=== PATIENT | male | born 1965 | race Hispanic/Latino ===

== ENCOUNTER 2024-05-20 10:38 | Inpatient (IN) | payer MEDICAID, SELFPAY ==
[2024-05-20] VITALS (43 sets, daily range): BP systolic 89–153; BP diastolic 60–92; BMI 21.3
--- NOTE | 2024-05-20 08:07 | ED.GENMED ---
History of Present Illness
General
Chief Complaint: Blood Sugar Problem
Time Seen by Provider: 05/20/24 08:07
History of Present Illness
History of Present Illness:
HPI: Patient came in by ambulance 'from a residence'. He has not had his insulin in the last 2 months as he has 'government insurance and changed jobs'. Generally feels unwell and is a very limited historian at this time. EMS indicated that their
blood sugar read 'high'.
EXAM:
GENERAL: The patient is ill-appearing and appears somewhat upon the time
HEENT: Dry oral mucosa
CARDIOVASCULAR: No murmurs, borderline tachycardic heart rate, regular rhythm, No chest wall tenderness
PULMONARY: No significant respiratory distress but he is mildly, breath sounds are clear and equal
ABDOMEN: Soft with no peritoneal signs, no tenderness
NEUROLOGIC: Fair strength all extremities, no coordination deficits
PSYCHIATRIC: The patient knows he is at a hospital but has trouble naming the year
EXTREMITIES: Nontender, no edema, moves all extremities equally
SKIN: No rash, no lesions
TIME OF INITIAL ENCOUNTER: 8:05 AM
NUMBER AND COMPLEXITY OF PROBLEMS ADDRESSED AT THE ENCOUNTER
� Chronic conditions affecting care: High blood pressure, hyperlipidemia, IDDM, history of substance abuse
� Acute Exacerbation and/or Progression of Chronic Illness: This is an acute problem
� Differential Diagnosis includes: DKA, electrolyte abnormality, dehydration, VIRI
AMOUNT AND/OR COMPLEXITY OF DATA TO BE REVIEWED AND ANALYZED
� I performed an independent evaluation of and my interpretation is:
EKG: Sinus 96, baseline artifact, QTc prolonged [address]:
X-rays: Chest x-ray shows no clear sign of pneumonia
Laboratory Studies: VBG shows a pH of 7.08, pCO2 of 23, bicarb of 6.8, white count 20.4, glucose 749, potassium 4.0, bicarb less than 5, beta hydroxybutyric 11.9, no evidence of UTI
Other:
� Review of other/old records: I reviewed records from this past August and at that time he was admitted with hyperglycemia, had A1c was 12.8, VIRI, but was not in DKA at that time.
� Clinical information was obtained by an independent historian: EMS
� Prescriptions/Medications Considered but not given:
� Further testing considered but not performed:
RISK OF COMPLICATIONS AND/OR MORBIDITY OR MORTALITY OF PATIENT MANAGEMENT
� Social determinants of health affecting care: Lives at home, has not been taking his insulin over the past 2 months as he switched jobs and has 'government insurance'
� Discussion with other providers: Hospitalist, Dr. Johnson at 9:55 AM for admission; I spoke to the lab who indicates the potassium is 4.0. I also spoke to Dr. Lyons.
� Escalation of care including admission/observation vs risk of discharge considered: VBG confirms metabolic acidosis�the patient was given IV fluid. Multiple lab draws were sent as several potassiums have been hemolyzed. I
spoke to the lab who indicates that the potassium was 4.0 and I then ordered insulin drip. I also placed coud� catheter as RN was unable to place catheter�bladder scan 600+ mL urine.
Past History
Past History
ED Past Medical History: HTN, Hypercholesterolemia and IDDM
Social History
Tobacco: Smoker
Alcohol: None
Drug: Cocaine, Narcotics and IVDA
Personal: Single
Employment: Employed
Family History
Family History: CAD
Phy Exam
Physical Exam
Physical Exam:
See HPI
Course
Orders/Labs/Results
Orders:
Orders
05/20/24 08:06
Electrocardiogram (*1) Urgent
Reason for Study: Other
Other Reason for Exam: hyperglycemia
EKG- Treatment ONCE
05/20/24 08:11
Complete Blood Count/With Diff Urgent
Lactic Acid Urgent
Venous Blood Gas Urgent
%Oxygen/Room Air: RA
05/20/24 08:18
0.9% Sodium Chloride 1000 ml [Nss] 1,000 ml IV BOLUS
05/20/24 08:32
0.9% Sodium Chloride 1000 ml [Nss] 1,000 ml IV BOLUS
CR Chest Portable - 1 View Urgent
Comment:
Reason For Exam: dka, leukocytosis
Reason Study Needs to be Portable: Patient Unstable
05/20/24 08:52
Lidocaine 2% [Lidocaine Uro-Jet 2%] 1 syringe .ROUTE .STK-MED ONE
05/20/24 08:54
Basic Metabolic Panel Urgent
05/20/24 09:06
Urinalysis Reflex To Culture Urgent
Date Specimen was Collected: 05/20/24
Time Specimen was Collected: 09:05
Urine Microscopic Reflex Cult Urgent
05/20/24 09:27
B-Hydroxybutyrate Urgent
Comprehensive Metabolic Panel Urgent
Magnesium Urgent
Phosphorus Urgent
05/20/24 Lunch
NPO
Allow oral meds: Yes
Allow clear liquids: Sips of Clears
NPO with Ice Chips: Yes
Reg Insulin 100 Units/100 ml [Novolin R Insulin Infusion] 100 units in 100 ml IV ORDERED RATE
05/20/24 10:24
BMP [Basic Metabolic Panel] Urgent
05/20/24 10:26
Admit/Transfer Patient As Directed
Co-Sign Provider:
Level of Care: Inpatient admission
Assign to:: ICU
Physician / Group: Hospitalist
Diagnosis: DKA
Reason for Hospitalization: .
Expected length of stay greater than two midnights?: Yes
ELOS- Estimated Length of Stay in days: 3
I certify the patient meets the requirements for IP care: Yes
Code Status As Directed
Resuscitation Status: Full Code
05/20/24 12:11
Lactic Acid Urgent
Abnormal Lab Results
05/20/24 05/20/24 05/20/24
08:10 08:11 08:54
WBC 20.4 H 10^3/uL
(4.8-10.8)
MPV 11.2 H fL
(7.4-10.4)
Abs Immat Gran (auto) 0.4 H 10^3/uL
(0-0.05)
Absolute Neuts (auto) 16.9 H 10^3/uL
(1.4-6.5)
Absolute Lymphs (auto) 0.9 L 10^3/uL
(1.2-3.4)
Absolute Monos (auto) 2.1 H 10^3/uL
(0.1-0.6)
Immature Gran % 1.9 H %
(0-0.5)
Neutrophils % 83.0 H %
(42.2-75.2)
Lymphocytes % 4.5 L %
(20.5-51.1)
Monocytes % 10.3 H %
(1.7-9.3)
VBG pH 7.08 L*
(7.32-7.43)
VBG pCO2 23 L mmHg
(35-48)
VBG HCO3 6.8 L mmol/L
(22-27)
Sodium 130 L mmol/L
(135-145)
Chloride 93 L mmol/L
(98-107)
Carbon Dioxide < 5 L* mmol/L
(22-30)
BUN 51 H mg/dl
(9-20)
Creatinine 1.6 H mg/dL
(0.7-1.3)
Glucose 749 H* mg/dl
(70-99)
Lactic Acid 2.5 H mmol/L
(0.7-2.0)
Calcium 8.1 L mg/dl
(8.4-10.2)
Phosphorus
AST
Alkaline Phosphatase
Urine Ketones
Ur Occult Blood Reflex
Urine RBC
Urine Bacteria (Reflex)
Urine Glucose
B-Hydroxybutyrate
POC Glucose > 600 H* mg/dl
(70-99)
05/20/24 05/20/24
09:06 09:27
WBC
MPV
Abs Immat Gran (auto)
Absolute Neuts (auto)
Absolute Lymphs (auto)
Absolute Monos (auto)
Immature Gran %
Neutrophils %
Lymphocytes %
Monocytes %
VBG pH
VBG pCO2
VBG HCO3
Sodium 133 L mmol/L
(135-145)
Chloride 96 L mmol/L
(98-107)
Carbon Dioxide < 5 L* mmol/L
(22-30)
BUN 47 H mg/dl
(9-20)
Creatinine 1.7 H mg/dL
(0.7-1.3)
Glucose 694 H* mg/dl
(70-99)
Lactic Acid
Calcium
Phosphorus 5.8 H mg/dl
(2.5-4.5)
AST 15 L U/L
(17-59)
Alkaline Phosphatase 147 H U/L
(38-126)
Urine Ketones 3+ A
(Negative)
Ur Occult Blood Reflex Trace A
(Negative)
Urine RBC 3-6 A /HPF
(0-2)
Urine Bacteria (Reflex) Few A
(Negative)
Urine Glucose 3+ A
(Negative)
B-Hydroxybutyrate 11.9 H mmol/L
(0.02-0.27)
POC Glucose
05/20/24 08:11
05/20/24 10:25
Vital Signs
Initial and Last Documented VS:
Initial Vital Signs
Pulse Resp Pulse Ox
96 20 100
05/20/24 08:08 05/20/24 08:08 05/20/24 08:08
Last Documented Vital Signs
Temp Pulse Resp BP Pulse Ox
97.3 F 100 24 133/78 100
05/20/24 09:41 05/20/24 09:00 05/20/24 09:00 05/20/24 09:00 05/20/24 08:41
Procedures
Urinary Catheter
Procedure completed by: Md, Dr. Wilson
Type of urinary catheter: indwelling catheter (Coude)
Catheter size (moroccan): 16
Urine description: clear
*Critical Care Note
Total Time (30-74mins, 75-104mins- exclusive of procedures): 55 minutes
comment:
The patient arrives with evidence of DKA. He is acidotic with initial sugar critical high, he was given IV fluids emergently and started on insulin. He is also noted to be hypothermic.
ED Attending Note
-
Portions of this chart may have been created with voice recognition software.� Occasional wrong word or��sound alike� substitutions may have occurred due to the inherent limitations of voice recognition software.
Discharge Plan
Departure
Patient Disposition: Admit
Date of Disposition: 05/20/24
Time of Disposition: 09:54
Presentation/result/management discussed w/ accepting MD/DO: Hospitalist
Discharge Problem:
DKA (diabetic ketoacidosis)
Interventions
Interventions:
*ED COVID-19 Vaccine History Last Done: 05/20/24 08:45
ED- Neurological Assessment Last Done: 05/20/24 08:18
[2024-05-20 08:11] LABS: Glucose - Point of Care > 600 mg/dl (70-99)
[2024-05-20] MEDS: NSS 1000 IV ×2 (08:20→08:34)
[2024-05-20 08:21] LABS: Venous Blood Gas B.E. -21.5 mmol/L (-4 to +4); Venous Blood Gas HCO3 6.8 mmol/L (22-27); Venous Blood Gas O2 Sat % 77.2 %; Venous Blood Gas pCO2 23 mmHg (35-48); Venous Blood Gas pO2 49 mmHg (30-50)
[2024-05-20 08:24] LABS: Venous Blood Gas O2 Therapy RA
[2024-05-20 08:25] LABS: Venous Blood Gas pH 7.08 (7.32-7.43)
[2024-05-20 08:26] LABS: % Basophils 0.3 % (0-2); % Immature Granulocytes 1.9 % (0-0.5); % Lymphocytes 4.5 % (20.5-51.1); % Monocytes 10.3 % (1.7-9.3); Absolute Basophils 0.1 10^3/uL (0-0.2); Absolute Immature Granulocytes 0.4 10^3/uL (0-0.05); Absolute Lymphocytes 0.9 10^3/uL (1.2-3.4); Absolute Monocytes 2.1 10^3/uL (0.1-0.6); Absolute Neutrophils 16.9 10^3/uL (1.4-6.5); Hemoglobin 16.6 g/dL (13.0-18.0); Mean Corp Hgb Conc. 36.1 g/dL (33.0-37.0); Mean Platelet Volume 11.2 fL (7.4-10.4); Nucleated Red Blood Cells % 0 % (-); Platelet Count 313 10^3/uL (130-400); Red Blood Cell Count 5.35 10^6/uL (4.70-6.10); Red Cell Dist. Width 11.9 % (11.5-14.5); White Blood Cell Count 20.4 10^3/uL (4.8-10.8)
[2024-05-20 08:39] LABS: Lactic Acid 2.5 mmol/L (0.7-2.0)
--- NOTE | 2024-05-20 08:40 | PHANOTE ---
med rec latanya(05/20/24)-Met with patient, but he was unable to communicate his medications. Used old pharmacy and old physician records to compile list, matching patient's claim he has not taken medication in months. Could not find last fill of
lisinopril or lantus in pharmacy, used record of physician visit from 2022.
[2024-05-20 09:46] LABS: Urine Albumin Trace (Neg - Trace); Urine Bilirubin Negative (Negative); Urine Character Clear (Clear); Urine Color Yellow; Urine Glucose 3+ (Negative); Urine Ketone 3+ (Negative); Urine Leukocyte Negative (Negative); Urine Nitrite Negative (Negative); Urine Occult Blood Trace (Negative); Urine Urobilinogen Negative (Neg - 1+)
[2024-05-20 09:48] LABS: Carbon Dioxide < 5 mmol/L (22-30); Glucose 749 mg/dl (70-99)
[2024-05-20 09:49] LABS: Blood Urea Nitrogen 51 mg/dl (9-20); Calcium 8.1 mg/dl (8.4-10.2); Chloride 93 mmol/L (98-107); Sodium 130 mmol/L (135-145); eGFR 49.63
[2024-05-20] MEDS: NOVOLIN R INSULIN INFUSION 100 IV (10:00)
[2024-05-20 10:04] LABS: ALT (SGPT) 14 U/L (0-50); AST (SGOT) 15 U/L (17-59); Albumin 4.2 g/dl (3.5-5.0); Alkaline Phosphatase 147 U/L (38-126); Blood Urea Nitrogen 47 mg/dl (9-20); Calcium 8.4 mg/dl (8.4-10.2); Carbon Dioxide < 5 mmol/L (22-30); Chloride 96 mmol/L (98-107); Glucose 694 mg/dl (70-99); Magnesium 1.8 mg/dl (1.6-2.3); Phosphorus 5.8 mg/dl (2.5-4.5); Sodium 133 mmol/L (135-145); Total Bilirubin 0.6 mg/dl (0.2-1.3); Total Protein 6.5 g/dl (6.3-8.2); eGFR 46.15
--- NOTE | 2024-05-20 10:25 | HPS.HSE ---
Family Physician
-
Family Physician: INTERVIEWE UNKNOWN - PT NOT
Chief Complaint
-
Weakness, unresponsiveness, lethargy
History of Present Illness
58 years old male who was brought in by ambulance from his residence after experiencing severe weakness and, like presentation. Apparently, patient was pale and mottled upon arrival. His blood sugar was 700 and had metabolic acidosis. Patient
stopped taking insulin due to job loss. Patient did not monitor his blood sugars at home.
History taken from the ER doctor as patient still lethargic and unable to provide detailed history although he answered simple questions.
In the ER, he was found to have multiple organ failure secondary to diabetic ketoacidosis WBC 20. Sodium 130, potassium 4.0, creatinine 1.6, lactic acid 2.5.
Medical History
Past Medical History
Past Medical History: Reports IDDM and Other ( History of noncompliance)
Past Surgical History: Reports Other (No recent major surgery)
Social History
Tobacco: Non-smoker
Alcohol: None
Drug: None
Personal: Single
Living: With Family
Employment: Not Employed
Family History
Family History: Not pertinent
Allergies / Home Medications
Allergies reflects when Allergies were last updated in [facility].
Home Medications with original date entered in [facility]
Allergy/Medication List:
Allergies
Allergy/AdvReac Type Severity Reaction Status Date / Time
No Known Allergies Allergy Verified 08/14/23 09:51
Home Medications
gabapentin 100 mg capsule 100 mg PO TID 30 days #90 caps 08/16/23
insulin lispro 100 unit/mL subcutaneous pen (Humalog KwikPen (U-100) Insulin) 12 unit (0.12 mL) SC AC #5 ea 08/16/23
lisinopril 20 mg tablet 20 mg PO DAILY 30 days #30 tabs 08/16/23
Review of Systems
-
Unable to obtain full review of systems at this time due to: Patient Non-verbal (Patient is lethargic, unreliable review of systems)
Physical Exam
Vital Signs
Vital Signs
Temp Pulse Resp BP Pulse Ox
97.3 F 100 24 133/78 100
05/20/24 09:41 05/20/24 09:00 05/20/24 09:00 05/20/24 09:00 05/20/24 08:41
Physical Exam
General: Appears in Distress (Acutely ill looking )
HEENT: Other (dry MM )
Respiratory: Clear
Cardiac: S1/S2 and Tachycardia
GI: Soft, Non Tender and Non Distended
Genito-urinary: Clear Urine and Keane
Musculoskeletal: No Cyanosis and No Edema
Skin: No Jaundice
Neuro: Awake and Other (Sluggish and lethargic , answered smpel questions, followed commands. )
Psych: Confused; No Agitated
Laboratory Results
-
05/20/24 08:11
Laboratory Results
Lactic Acid 2.5 mmol/L (0.7-2.0) H 05/20/24 08:11
Total Bilirubin 0.6 mg/dl (0.2-1.3) 05/20/24 09:27
AST 15 U/L (17-59) L 05/20/24 09:27
ALT 14 U/L (0-50) 05/20/24 09:27
Alkaline Phosphatase 147 U/L (38-126) H 05/20/24 09:27
Impression/Plan
-
58 years old male presented with diabetic ketoacidosis and change in mental status
# Diabetic ketoacidosis due to noncompliance to medication, insulin
Admit the patient to ICU
Start the patient on intravenous fluid, generous volume
Input output chart
Start the patient on insulin drip and Accu-Chek every hour. Follow DKA.
Monitor potassium level closely and start potassium infusion when level less than 4 while on insulin
Continue to monitor mental status
Continue monitoring basic metabolic panel
Will discuss with ICU doctor
# Leukocytosis, likely reactive. No fever. No hypoxia
# Hyponatremia, likely pseudohyponatremia due to hyperglycemia
# Acute kidney injury secondary to diabetic ketoacidosis
Acute urinary retention
Keep Keane and maintain it for now
Renal ultrasound
Urinalysis but expect improvement with hydration
Avoid nephrotoxic
# History of primary hypertension. Holding lisinopril while VIRI.
Add as needed hydralazine
# Sinus tachycardia, reactive
# Toxic metabolic encephalopathy due to diabetic ketoacidosis
Patient seems to show some improvement in the ER while treating his acute illness
# Hypothermia, reactive, body temperature is improving
# DVT and GI prophylaxis
Total critical time spent to see the patient, examine the patient, review data and lab results, and discuss the treatment plan with patient, ER doctor, and nurse around 85 minutes
[2024-05-20 10:26] LABS: B-Hydroxybutyrate 11.9 mmol/L (0.02-0.27)
[2024-05-20 10:42] LABS: Urine Bacteria Few (Negative); Urine White Cell None Seen /HPF (0-5)
[2024-05-20 11:02] LABS: Glucose - Point of Care > 600 mg/dl (70-99)
[2024-05-20 11:06] LABS: Blood Urea Nitrogen 45 mg/dl (9-20); Calcium 8.7 mg/dl (8.4-10.2); Carbon Dioxide < 5 mmol/L (22-30); Chloride 97 mmol/L (98-107); Glucose 627 mg/dl (70-99); Potassium 3.9 mmol/L (3.5-5.1); Sodium 134 mmol/L (135-145); eGFR 49.63
--- NOTE | 2024-05-20 11:09 | EDRN ---
Dr DIAZ notified of critical value chemistries
[2024-05-20 11:30] LABS: Glucose 558 mg/dl (70-99)
--- NOTE | 2024-05-20 12:00 | PTCARENOTE ---
Received from ER into rm [id number]. Max assisted from stretcher to bed. Lethargic/awakens to verbal stimuli; oriented to self/place; required reorientation to place. ST on monitor. SpO2 99% on RA. +BS, c/o int nausea-- medicated w prn- see JAN. NPO
status maintained. Keane catheter placed in ER for acute retention; draining clear, yellow, urine. Skin cold to touch, poor cap refill. L AC w IVF and insulin gtt infusing- see flow sheet. Blood work drawn and sent to lab. Pt instructed on how
to report care concerns. Call kylee w in reach and bed alarm active.
[2024-05-20] MEDS: NSS (PRESERVATIVE FREE) 10 ML IV (12:05)
[2024-05-20] MEDS: PROTONIX IV 40 MG IV (12:05)
[2024-05-20] MEDS: ZOFRAN 4 MG IV (12:05)
[2024-05-20 12:22] LABS: INR 1.22; PT 15.2 Sec (11.4-14.6)
[2024-05-20 12:23] LABS: APTT 24.5 Sec (23.4-35.0)
[2024-05-20 12:28] LABS: Lactic Acid 1.5 mmol/L (0.7-2.0)
[2024-05-20 12:40] LABS: Glucose - Point of Care > 600 mg/dl (70-99)
[2024-05-20 12:56] LABS: Glucose 400 mg/dl (70-99)
--- NOTE | 2024-05-20 13:07 | CON.INTV ---
Consultation
Consultation Request
Date/Time Consultation Requested: 05/20/24
Date/Time Consultation Performed: 05/20/24
Performing Provider: Eddie
Reason for Consultation: Critical Care
Medical History
-
History of Present Illness:
Patient is a 58-year-old male with previous history of diabetes, poorly controlled, hypertension brought in by ambulance from his residence after experience of your weakness and pallor. Blood sugar was over 700 on arrival, with severe high anion
gap metabolic acidosis. He admits that he stopped taking his insulin due to recent job loss. He does not monitor his blood sugars accurately at home. In ER, he was noted to have diabetic ketoacidosis with blood sugar greater than 500, bicarb less
than 5, pH 7.08, lactic acidosis 2.5. He is admitted to ICU for insulin drip.
He has had prior admissions in the past for poorly controlled insulin. He is notably noncompliant.
Past Medical History
Past Medical History: Other (see list below)
Social History
Tobacco: Non-smoker
Alcohol: None
Drug: Former User
Family History
Family History: Reviewed & Not Pertinent
Allergies / Home Medications
Allergies
Allergy/AdvReac Type Severity Reaction Status Date / Time
No Known Allergies Allergy Verified 08/14/23 09:51
Home Medications
�Medication �Instructions �Recorded �Confirmed �Last Taken �Type
gabapentin 100 mg capsule 100 mg PO TID 30 days #90 caps 08/16/23 Unknown Rx
insulin lispro 100 unit/mL 12 unit (0.12 mL) SC AC #5 ea 08/16/23 Unknown Rx
subcutaneous pen (Humalog KwikPen
(U-100) Insulin)
lisinopril 20 mg tablet 20 mg PO DAILY 30 days #30 tabs 08/16/23 08/14/23 Unknown Rx
Review of Systems
-
History Source: Patient
All other systems: Negative unless noted
Vitals / Labs / Diagnostic Testing
Vital Signs
Temp Pulse Resp BP Pulse Ox
97.6 F 112 20 150/88 99
05/20/24 11:50 05/20/24 11:00 05/20/24 11:00 05/20/24 11:00 05/20/24 12:45
Lab Data
05/20/24 08:11
Laboratory Results
05/20/24
11:47
PT 15.2 H
INR 1.22
APTT 24.5
Diagnostic Testing:
Physical Exam
-
HEENT: Normocephalic, Anicteric and Moist Mucous Membranes
Cardiovascular: S1/S2 and Regular Rhythm (tachy)
Respiratory: Clear and Non-Labored Respirations
GI: Soft, Non Distended and Non Tender
Neurology: Awake, Alert, Oriented, AO x 3, No Motor Deficits and Tremors
Skin: Warm, Dry and Good Color
General: Other (NAD) and Other (agitated)
Assessment
-
Patient is a 58-year-old male with previous history of diabetes, poorly controlled, hypertension brought in by ambulance from his residence after experience of your weakness and pallor. Blood sugar was over 700 on arrival, with severe high anion
gap metabolic acidosis. He admits that he stopped taking his insulin due to recent job loss. He does not monitor his blood sugars accurately at home. In ER, he was noted to have diabetic ketoacidosis with blood sugar greater than 500, bicarb less
than 5, pH 7.08, lactic acidosis 2.5. He is admitted to ICU for insulin drip.
DKA, on insulin gtt
Generalized weakness
Leukocytosis
VIRI, creat peak 1.7 (BL 0.6)
Noncompliance
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
HTN
Hyperlipidemia
Insulin-dependent diabetes w/ neuropathy
Substance abuse, UDS + meth/amphet
Cocaine/heroine/meth history, incarceration
Lumbar back pain
Plan
DKA, admitting BS elevated, AG >30
Started on insulin drip, can wean today following protocol, start D5 IVFs
Consult diabetic nurse for insulin recommendations
Prior admissions noted for poorly controlled DM
Can restart diet once able to bridge
H/o poorly controlled diabetes, hopeful transition to home meds
HbA1c 12.8 (08/14/23)
Admits triggers include noncompliance
UDS in past + meth/amphet
Has a history of cocaine/heroine use
Repeat UDS
NPO for now
Diet transition following DKA protocol
GI ppx if indicated
Hemodynamically stable, not requiring pressors.
No prior h/o cardiac disease
No ECHO in past for review
Oxygen needs: Stable on RA
No prior h/o pulmonary disease
CXR showing NAD
Creat at baseline, follow UO
Acid/base status: AGMA 2/2 DKA, follow until AG <12
No signs/symptoms suspicious for infectious etiology at this time.
Will observe off antibiotics for now.
Follow fever trend, WBC count.
DVT ppx SCDs
Diagnostic Data
Chest X-Ray: 05/20/24- No active cardiopulmonary disease.
2019- No evidence of active cardiopulmonary disease.
CT Scan:
Echo:
PFT's:
Reports and relevant images were personally reviewed.
-----
Critical care time 50 mins -- this includes review of history, physical exam, medications, hemodynamic/ventilator parameters, laboratory data, imaging and discussion with house staff, pharmacy, respiratory therapy, cement despatch operator, and nursing.
[2024-05-20 14:16] LABS: Glucose - Point of Care 428 mg/dl (70-99)
[2024-05-20 14:32] LABS: Glucose 307 mg/dl (70-99); Potassium 3.3 mmol/L (3.5-5.1)
[2024-05-20] MEDS: NSS with KCL 20 MEQ 1000 IV (14:37)
[2024-05-20 14:48] LABS: Blood Urea Nitrogen 44 mg/dl (9-20); Calcium 8.9 mg/dl (8.4-10.2); Carbon Dioxide 12 mmol/L (22-30); Chloride 106 mmol/L (98-107); Estimated Creatinine Clearance 76 ml/min; Potassium 3.3 mmol/L (3.5-5.1); Sodium 140 mmol/L (135-145); eGFR > 60.00
--- NOTE | 2024-05-20 15:21 | W.PN.UPDATE ---
Update Note
Progress Note Update
Addendum
I reviewed BMP
Will add an additional K rider with infusion since K is 3.3
c/w Insulin gtt
Creatinine is normalizing now
Add dextrose gtt when BS approaching 250 to c/w low dose insulin until acidosis resolves
d/w nurse and pharmacist
End
[2024-05-20] MEDS: KCL 270 MEQ IV (15:32)
[2024-05-20 15:42] LABS: Glucose - Point of Care 382 mg/dl (70-99)
--- NOTE | 2024-05-20 16:01 | PTCARENOTE ---
14[address] BMP results reviewed by Dr. Morgan and Dr. Lyons. Further orders received for K+ rider- see MAR. Plan to maintain on insulin gtt/IVF- see MAR/flow sheet; Q4H BMP draws per orders. Pt.'s mother to bedside this afternoon, updated on plan of
care, questions answered. Bed alarm remains active.
[2024-05-20 16:39] LABS: Glucose - Point of Care 254 mg/dl (70-99)
[2024-05-20 16:50] LABS: Amphetamines Negative (Negative); Barbiturates Negative (Negative); Benzodiazepines Negative (Negative); Buprenorphine Negative (Negative); Cocaine Negative (Negative); Marijuana Negative (Negative); Methadone Negative (Negative); Methamphetamines Negative (Negative); Opiates Negative (Negative); Phencyclidine Negative (Negative); Tricyclic Antidepressants Negative (Negative)
[2024-05-20 17:42] LABS: Glucose - Point of Care 203 mg/dl (70-99)
[2024-05-20] MEDS: D5/0.45%NSS with KCL 20 MEQ 1000 IV (17:51)
[2024-05-20 18:44] LABS: Glucose - Point of Care 209 mg/dl (70-99)
[2024-05-20] MEDS: HEPARIN 5000 UNITS SC (19:24)
[2024-05-20 19:40] LABS: Glucose - Point of Care 211 mg/dl (70-99)
--- NOTE | 2024-05-20 20:13 | PTCARENOTE ---
Rec'd care of patient at 1900. Patient drowsy but arousable. VSS. ST with rate in the 100-110's. No edema. Palpable pulses. Lung sounds diminished. Pulse ox 98% on RA. +BS. Reminded on NPO orders. Voiding via caceres catheter. Insulin gtt and IVFs
infusing as ordered through peripheral INT. DKA protocol followed. 1999 BMP drawn and sent.
[2024-05-20 20:46] LABS: Blood Urea Nitrogen 39 mg/dl (9-20); Carbon Dioxide 17 mmol/L (22-30); Chloride 112 mmol/L (98-107); Estimated Creatinine Clearance 97 ml/min; Glucose 186 mg/dl (70-99); Potassium 3.9 mmol/L (3.5-5.1); Sodium 142 mmol/L (135-145); eGFR > 60.00
[2024-05-20 20:48] LABS: Glucose - Point of Care 231 mg/dl (70-99)
[2024-05-20 21:49] LABS: Glucose - Point of Care 253 mg/dl (70-99)
[2024-05-20 22:47] LABS: Glucose - Point of Care 231 mg/dl (70-99)
--- NOTE | 2024-05-20 22:53 | PTCARENOTE ---
Patient setting off bed alarm. When staff entered room, patient trying to climb out of bed. Yelling at staff 'I NEED ICE.' Stating if we are not going to get it for him, he will go to the sink and get it himself. Patient educated on fall risk,
medications and diet order. IV access and caceres catheter being pulled on while patient continuing to try and get out of bed. Patient screaming at staff that he 'does not care about any of that' and 'just get me ice'. Patient placed back in bed by
RNs. While placing blanket back on, patient screaming 'YOU'RE WASTING TIME JUST GO GET ME THE ICE.' Patient notified that staff will not tolerate this behavior. Bed alarm placed back on and functioning. Ice chips provided.
[2024-05-20 23:50] LABS: Glucose - Point of Care 201 mg/dl (70-99)
[2024-05-21] VITALS (15 sets, daily range): BP systolic 114–149; BP diastolic 62–95; BMI 21.8
[2024-05-21] MEDS: D5/0.45%NSS with KCL 20 MEQ 1000 IV ×2 (00:32→07:22)
[2024-05-21 00:42] LABS: Glucose - Point of Care 198 mg/dl (70-99)
[2024-05-21 01:01] LABS: Blood Urea Nitrogen 32 mg/dl (9-20); Calcium 8.9 mg/dl (8.4-10.2); Carbon Dioxide 22 mmol/L (22-30); Chloride 113 mmol/L (98-107); Estimated Creatinine Clearance 97 ml/min; Glucose 208 mg/dl (70-99); Potassium 3.8 mmol/L (3.5-5.1); Sodium 143 mmol/L (135-145); eGFR > 60.00
[2024-05-21] MEDS: D5/0.45%NSS with KCL 20 MEQ IV (01:14)
[2024-05-21 01:52] LABS: Glucose - Point of Care 240 mg/dl (70-99)
[2024-05-21 02:36] LABS: Glucose - Point of Care 247 mg/dl (70-99)
[2024-05-21 03:41] LABS: Glucose - Point of Care 268 mg/dl (70-99)
[2024-05-21 04:42] LABS: Hematocrit 36.9 % (39.0-52.0); Hemoglobin 13.6 g/dL (13.0-18.0); Mean Corp Hgb Conc. 36.9 g/dL (33.0-37.0); Mean Corpuscular Hgb 30.3 pg (27.0-31.0); Mean Corpuscular Volume 82.2 fL (80.0-94.0); Mean Platelet Volume 10.4 fL (7.4-10.4); Platelet Count 245 10^3/uL (130-400); Red Blood Cell Count 4.49 10^6/uL (4.70-6.10); Red Cell Dist. Width 12.2 % (11.5-14.5); White Blood Cell Count 12.4 10^3/uL (4.8-10.8)
[2024-05-21 04:45] LABS: Glucose - Point of Care 223 mg/dl (70-99)
[2024-05-21 04:54] LABS: Glucose - Point of Care 221 mg/dl (70-99)
[2024-05-21 04:56] LABS: Blood Urea Nitrogen 28 mg/dl (9-20); Calcium 8.8 mg/dl (8.4-10.2); Carbon Dioxide 21 mmol/L (22-30); Chloride 113 mmol/L (98-107); Estimated Creatinine Clearance 116 ml/min; Glucose 223 mg/dl (70-99); Potassium 3.6 mmol/L (3.5-5.1); Sodium 142 mmol/L (135-145); eGFR > 60.00
--- NOTE | 2024-05-21 05:02 | PTCARENOTE ---
DKA protocol maintained. Patient resting comfortably. VSS.
[2024-05-21 05:43] LABS: Glucose - Point of Care 214 mg/dl (70-99)
--- NOTE | 2024-05-21 06:41 | W.PN.HOSP.TC ---
Today's Communication/Plan
-
Start SQ insulin
Reglan pre-meals
Introduce diet slowly
Out of ICU
Assessment / Plan
Assessment / Plan
Physical Exam
General: Not in distress, looks comfortable
HEENT: Other (dry MM )
Respiratory: Clear
Cardiac: S1/S2 and Tachycardia
GI: Soft, Non Tender and Non Distended
Genito-urinary: Clear Urine and Keane
Musculoskeletal: No Cyanosis and No Edema
Skin: No Jaundice
Neuro: Awake, oriented X3, followed commands
Psych: Calm, No Agitated
58 years old male presented with diabetic ketoacidosis and change in mental status
# Diabetic ketoacidosis due to noncompliance to medication, insulin
Resolving, s/p DKA protocol and insulin gtt
with good improvement, will switch to SQ insulin, elvis-meals, ISS and Lantus
# Abdominal discomfort due to N/V at home for few days
non tender abdomen, introduce diet slowly. Reglan pre-meals for one day.
# Leukocytosis, likely reactive. No fever. No hypoxia
WBC is coming down
# Hyponatremia, was pseudohyponatremia due to hyperglycemia
# Acute kidney injury secondary to diabetic ketoacidosis, resolved with IVF
#Acute urinary retention
will do voiding trial
# Hypokalemia, resolved.
# History of primary hypertension. Resume lisinopril
Add as needed hydralazine
# Sinus tachycardia, reactive
# Toxic metabolic encephalopathy due to diabetic ketoacidosis , resolving, he seems to improve
Non focal neuro exam
# Hypothermia, reactive, resolved.
# DVT and GI prophylaxis
Total time spent to see the patient, examine the patient, review data and lab results, and discuss the treatment plan with patient, and nurse around 55 minutes
Anticipated Discharge: Within 24 hours
Subjective/Interval History
-
Date of Service: May 21, 2024
He is feeling better
more alert
wants to drink and have soup, reports mild abd discomfort
mild nausea at times
Objective Data
-
Labs:
Laboratory Results
05/20/24 05/21/24 05/21/24
20:08 00:30 04:33
WBC 12.4 H
Hgb 13.6
Hct 36.9 L
Plt Count 245 D
Sodium 142 143 142
Potassium 3.9 3.8 3.6
Chloride 112 H 113 H 113 H
Carbon Dioxide 17 L 22 21 L
BUN 39 H 32 H 28 H
Creatinine 0.7 0.7 0.6 L
Glucose 186 H 208 H 223 H
Calcium 9.0 8.9 8.8
05/21/24
08:00
WBC
Hgb
Hct
Plt Count
Sodium Cancelled
Potassium Cancelled
Chloride Cancelled
Carbon Dioxide Cancelled
BUN Cancelled
Creatinine Cancelled
Glucose Cancelled
Calcium Cancelled
Vital Signs:
Vital Signs
Temp Pulse Resp BP Pulse Ox
98.1 F 98 17 149/95 96
05/21/24 03:12 05/21/24 06:00 05/21/24 06:00 05/21/24 06:00 05/21/24 06:00
I&O
05/19/24 05/20/24 05/21/24
06:59 06:59 06:59
Intake Total 5533.0 / 5533.0
Output Total 3550 / 3550
Balance 1983.0 / 1983.0
[2024-05-21 06:43] LABS: Glucose - Point of Care 248 mg/dl (70-99)
[2024-05-21] MEDS: NOVOLIN R INSULIN INFUSION 100 IV (06:45)
--- NOTE | 2024-05-21 07:15 | W.PN.INTV ---
Today's Communication / Plan
Recommendations
Doing well, transitioned off insulin gtt
Tolerating diet, continue further diabetic management per team
PT, OT, encouraged OOB
Transferred to floors, we will sign off at this time
Assessment
-
Patient is a 58-year-old male with previous history of diabetes, poorly controlled, hypertension brought in by ambulance from his residence after experience of your weakness and pallor. Blood sugar was over 700 on arrival, with severe high anion
gap metabolic acidosis. He admits that he stopped taking his insulin due to recent job loss. He does not monitor his blood sugars accurately at home. In ER, he was noted to have diabetic ketoacidosis with blood sugar greater than 500, bicarb less
than 5, pH 7.08, lactic acidosis 2.5. He is admitted to ICU for insulin drip.
DKA, on insulin gtt
Generalized weakness
Leukocytosis
VIRI, creat peak 1.7 (BL 0.6)
Noncompliance
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
HTN
Hyperlipidemia
Insulin-dependent diabetes w/ neuropathy
Substance abuse, UDS + meth/amphet
Cocaine/heroine/meth history, incarceration
Lumbar back pain
Plan
DKA, admitting BS elevated, AG >30--now closed
Transitioned off insulin gtt
Diabetic nurse following for insulin recommendations
Prior admissions noted for poorly controlled DM
Diet resumed, tolerating
H/o poorly controlled diabetes, hopeful transition to home meds
HbA1c 12.8 (08/14/23)
Admits triggers include noncompliance
UDS in past + meth/amphet
Has a history of cocaine/heroine use
Repeat UDS negative
Diet transition following DKA protocol
GI ppx if indicated
Hemodynamically stable, not requiring pressors.
No prior h/o cardiac disease
No ECHO in past for review
Oxygen needs: Stable on RA
No prior h/o pulmonary disease
CXR showing NAD
Creat at baseline, follow UO
Acid/base status: AGMA 2/2 DKA, follow until AG <12
No signs/symptoms suspicious for infectious etiology at this time.
Will observe off antibiotics for now.
Follow fever trend, WBC count.
PT/OT, can stop SQ Hep
DVT ppx SCDs
Diagnostic Data
Chest X-Ray: 05/20/24- No active cardiopulmonary disease.
2019- No evidence of active cardiopulmonary disease.
CT Scan:
Echo:
PFT's:
Reports and relevant images were personally reviewed.
-----
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
Subjective Dataa
Subjective Data
Date of Service:
Date of Service: May 21, 2024
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
Subjective:
Doing well, transitioned off insulin gtt
Tolerating meals
No new events
Objective Data
Data Reviewed
Vital Signs / I&O / Oxygen:
Vital Signs
Temp Pulse Resp BP Pulse Ox
98.1 F 98 17 149/95 96
05/21/24 03:12 05/21/24 06:00 05/21/24 06:00 05/21/24 06:00 05/21/24 06:00
Intake and Output
05/20/24 05/21/24 05/22/24
06:59 06:59 06:59
Intake Total 5533.0 / 5533.0
Output Total 3550 / 3550
Balance 1983.0 / 1983.0
SaO2 96
Physical Exam
General: Comfortable and Other (NAD)
HEENT: Normocephalic, Anicteric and Moist Mucous Membranes
Cardiovascular: S1-S2 and Regular Rhythm
Respiratory: Clear and Non-Labored Respirations
GI: Soft, Non Distended and Non Tender
Neurology: Awake, Alert, Oriented, AO x 3, No Motor Deficits and Tremors
Skin: Warm, Dry and Good Color
Labs/Micro/Reports
Lab Data
05/21/24 04:33
05/21/24 08:00
Laboratory Results
05/20/24
11:47
PT 15.2 H
INR 1.22
APTT 24.5
[2024-05-21 07:38] LABS: Glucose - Point of Care 223 mg/dl (70-99)
--- NOTE | 2024-05-21 08:00 | PTCARENOTE ---
pt received on insulin drip per order, clarified diabetic ed with physician, diet updated and insulin coverage obtained. refused AM care.
[2024-05-21] MEDS: HEPARIN 5000 UNITS SC (08:27)
[2024-05-21] MEDS: PROTONIX IV 40 MG IV (08:28)
[2024-05-21] MEDS: NSS (PRESERVATIVE FREE) 10 ML IV (08:28)
[2024-05-21 08:42] LABS: Glucose - Point of Care 222 mg/dl (70-99)
[2024-05-21] MEDS: LANTUS 0.15 UNITS SC (09:17)
[2024-05-21 09:29] LABS: Glucose - Point of Care 263 mg/dl (70-99)
[2024-05-21] MEDS: NOVOLOG FLEXPEN 5 UNITS SC (09:58)
[2024-05-21] MEDS: REGLAN 5 MG IV ×3 (10:00→16:41)
--- NOTE | 2024-05-21 11:38 | CM ---
CM following re: discharge planning.
Reviewed pt's chart, met with pt.
Pt is a 58 year old male, admitted with primary dx of DKA
Pt reports he lives with mother in [place], no steps to enter, has no children. 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 Pt stated he has DM and he manages it very well at home.
CM consulted to assist pt with helping managing his meds. Pt referred to VN for medication management.
PCP: Dr. Aiken
Pharmacy: [facility] [place]
[facility] and family support.
CM will follow with discharge plan updates as hospitalization progress
[2024-05-21 12:00] LABS: Glycohemoglobin (HgbA1c) 15.4 % (4.0-5.6)
--- NOTE | 2024-05-21 12:00 | PTCARENOTE ---
pt downgraded to M/S, insulin drip stopped and coverage provided, educated pt on importance of oral care and care was given, physician notified for flomax. PT saw patient up and oobx1, tolerating sitting in chair chair alarm applied. Transferred to
M/S unit.
--- NOTE | 2024-05-21 12:00 | PTCARENOTE ---
system reviewed, obtained orders to downgraded to M/S, insulin drip stopped and coverage provided, educated pt on importance of oral care and care was given, physician notified for flomax. PT saw patient up and oobx1, tolerating sitting in chair
chair alarm applied.
[2024-05-21 12:35] LABS: Glucose - Point of Care 210 mg/dl (70-99)
[2024-05-21] MEDS: NOVOLOG FLEXPEN-HIGH RESISTANCE 4 UNITS SC (12:38)
[2024-05-21] MEDS: TYLENOL 1000 MG PO ×2 (13:26→21:02)
--- NOTE | 2024-05-21 13:44 | PN.DE.MGMTRT ---
Insulin Management
- -
05/21/2024 Diabetes Management Consult
Patient admitted 05/20 for blood sugar problem. PMH includes HTN, HCL, diabetes, cocaine, narcotic and IVDA. Patient has not taken insulin in several months, he lost job, insurance. When he had insulin he took basaglar 23 units @ HS and humalog 12
units AC with metformin 500 BID. A1C 15.4 GAP 32 on admission.
Patient to transition off of drip to subcutaneous insulin.
At the time of this note consult removed, Dr. Lyons managing
Diabetes History
- -
Type of Diabetes: 2 requiring insulin
Pre-Admission Diabetes Regimen
05/20/24 05/20/24 05/21/24
14:12 20:08 00:30
Creatinine 0.9 0.7 0.7
05/21/24 05/21/24
04:33 08:00
Creatinine 0.6 L Cancelled
Lab Results
Hemoglobin A1c Cancelled 05/21/24 08:40
Insulin Pump Settings
IP Diabetes Regimen
05/20/24 05/20/24 05/20/24
14:05 14:12 15:30
Glucose 307 H
POC Glucose 428 H 382 H
05/20/24 05/20/24 05/20/24
16:28 17:31 18:32
Glucose
POC Glucose 254 H 203 H 209 H
05/20/24 05/20/24 05/20/24
19:28 20:08 20:37
Glucose 186 H
POC Glucose 211 H 231 H
05/20/24 05/20/24 05/20/24
21:38 22:35 23:38
Glucose
POC Glucose 253 H 231 H 201 H
05/21/24 05/21/24 05/21/24
00:30 01:41 02:23
Glucose 208 H
POC Glucose 198 H 240 H 247 H
05/21/24 05/21/24 05/21/24
03:30 04:31 04:33
Glucose 223 H
POC Glucose 268 H 223 H
05/21/24 05/21/24 05/21/24
04:42 05:32 06:32
Glucose
POC Glucose 221 H 214 H 248 H
05/21/24 05/21/24 05/21/24
07:27 08:00 08:30
Glucose Cancelled
POC Glucose 223 H 222 H
05/21/24 05/21/24
09:18 12:24
Glucose
POC Glucose 263 H 210 H
Meal type: Lunch
Meal type: Breakfast
Amount consumed: 45%
Amount consumed: 100%
Patient Education
--- NOTE | 2024-05-21 13:44 | PTCARENOTE ---
transport to [facility] [phone] via with all belongings. morris remains pink tinge, statlock maintained, med with tylenol for FLORES prior to transfer.
--- NOTE | 2024-05-21 14:19 | PTCARENOTE ---
pt transferred from ICU. Awake and alert, denies pain. regular heart sounds, LCTA B/L on RA. abd soft NT, +BS x4. skin CDI no edema +PP CB in reach
[2024-05-21 16:13] LABS: Glucose - Point of Care 317 mg/dl (70-99)
[2024-05-21] MEDS: NOVOLOG vial 5 UNITS SC (16:19)
[2024-05-21] MEDS: NOVOLOG FLEXPEN-HIGH RESISTANCE 10 UNITS SC (16:19)
[2024-05-21 20:56] LABS: Glucose - Point of Care 254 mg/dl (70-99)
[2024-05-21] MEDS: LANTUS 0.05 UNITS SC (21:05)
[2024-05-22 07:19] LABS: Glucose - Point of Care 249 mg/dl (70-99)
[2024-05-22 07:45] VITALS: BP 159/109
[2024-05-22] MEDS: NOVOLOG FLEXPEN 7 UNITS SC ×3 (08:12→17:00)
[2024-05-22] MEDS: NOVOLOG FLEXPEN-HIGH RESISTANCE 4 UNITS SC ×3 (08:13→17:01)
[2024-05-22] MEDS: PROTONIX IV 40 MG IV (08:15)
[2024-05-22] MEDS: NSS (PRESERVATIVE FREE) 10 ML IV (08:15)
--- NOTE | 2024-05-22 09:28 | W.PN.HOSP.TC ---
Today's Communication/Plan
-
adjusted insulin doses
Assessment / Plan
Assessment / Plan
Physical Exam
General: Not in distress, looks comfortable
HEENT: Other (dry MM )
Respiratory: Clear
Cardiac: S1/S2 and Tachycardia
GI: Soft, Non Tender and Non Distended
Genito-urinary: Clear Urine and Keane
Musculoskeletal: No Cyanosis and No Edema
Skin: No Jaundice
Neuro: Awake, oriented X3, followed commands
Psych: Calm, No Agitated
58 years old male presented with diabetic ketoacidosis and change in mental status
# Type I DM
Poorly controlled due to non-compliance
HGB A1C 15.4
Increase night time Lantus
Increase pre-meal insulin
c/w ISS and accordingly adjust
# Diabetic ketoacidosis due to noncompliance to medication, insulin
Resolved s/p DKA protocol and insulin gtt
# Abdominal discomfort due to N/V at home for few days
non tender abdomen, introduce diet slowly. s/p Reglan pre-meals for one day then change to PRN
# Leukocytosis, likely reactive. No fever. No hypoxia
WBC is coming down
# Hyponatremia, was pseudohyponatremia due to hyperglycemia
# Acute kidney injury secondary to diabetic ketoacidosis, resolved with IVF
#Acute urinary retention
will do voiding trial
# Hypokalemia, resolved.
# History of primary hypertension. Resume lisinopril
Add as needed hydralazine
# Sinus tachycardia, reactive
# Toxic metabolic encephalopathy due to diabetic ketoacidosis , resolved. Back to baseline.
Non focal neuro exam
# Hypothermia, reactive, resolved.
# DVT and GI prophylaxis
Total time spent to see the patient, examine the patient, review data and lab results, and discuss the treatment plan with patient, and nurse around 57 minutes
Anticipated Discharge: 24 - 48 hours
Subjective/Interval History
-
Date of Service: May 22, 2024
No chest pain
No abd pain
Objective Data
-
Vital Signs:
Vital Signs
Temp Pulse Resp BP Pulse Ox
98 F 84 16 159/109 100
05/22/24 07:45 05/22/24 07:45 05/22/24 07:45 05/22/24 07:45 05/22/24 07:45
I&O
05/21/24 05/22/24 05/23/24
06:59 06:59 06:59
Intake Total 5533.0 / 5533.0 1780 / 1780
Output Total 3550 / 3550 5350 / 5350
Balance 1983.0 / 1983.0 -3570 / -3570
[2024-05-22 11:50] LABS: Glucose - Point of Care 218 mg/dl (70-99)
[2024-05-22] MEDS: TYLENOL 1000 MG PO (12:13)
[2024-05-22] MEDS: REGLAN 5 MG IV (12:21)
[2024-05-22 16:14] VITALS: BP 154/90
[2024-05-22 16:32] LABS: Glucose - Point of Care 221 mg/dl (70-99)
[2024-05-22 19:03] LABS: Hepatitis C Antibody Negative (Negative)
[2024-05-22 21:45] LABS: Glucose - Point of Care 309 mg/dl (70-99)
[2024-05-22] MEDS: LANTUS 0.2 UNITS SC (21:46)
--- NOTE | 2024-05-22 21:50 | PTCARENOTE ---
Patient HS Accu Check 309. 20U of Lantus given. DEREK Ruiz notified. Order received for no novolog at this time and to re-check glucose at 0300. Care ongoing. Will continue to monitor.
[2024-05-22 23:28] VITALS: BP 137/85
[2024-05-23 02:48] LABS: Glucose - Point of Care 261 mg/dl (70-99)
[2024-05-23 06:00] VITALS: BMI 21.8
[2024-05-23 07:05] LABS: Glucose - Point of Care 241 mg/dl (70-99)
[2024-05-23 07:58] VITALS: BP 137/90
[2024-05-23 08:06] LABS: Blood Urea Nitrogen 12 mg/dl (9-20); Calcium 9.5 mg/dl (8.4-10.2); Carbon Dioxide 31 mmol/L (22-30); Chloride 93 mmol/L (98-107); Estimated Creatinine Clearance 116 ml/min; Glucose 236 mg/dl (70-99); Sodium 133 mmol/L (135-145); eGFR > 60.00
[2024-05-23 08:08] LABS: Hematocrit 40.2 % (39.0-52.0); Hemoglobin 14.6 g/dL (13.0-18.0); Mean Corp Hgb Conc. 36.3 g/dL (33.0-37.0); Mean Corpuscular Hgb 30.7 pg (27.0-31.0); Mean Corpuscular Volume 84.5 fL (80.0-94.0); Mean Platelet Volume 10.8 fL (7.4-10.4); Platelet Count 251 10^3/uL (130-400); Red Blood Cell Count 4.76 10^6/uL (4.70-6.10); Red Cell Dist. Width 11.7 % (11.5-14.5); White Blood Cell Count 7.6 10^3/uL (4.8-10.8)
[2024-05-23] MEDS: NOVOLOG FLEXPEN-HIGH RESISTANCE 4 UNITS SC ×2 (08:33→17:43)
[2024-05-23] MEDS: PROTONIX 40 MG PO (08:35)
[2024-05-23] MEDS: NOVOLOG FLEXPEN 7 UNITS SC ×3 (08:35→17:43)
[2024-05-23] MEDS: TYLENOL 1000 MG PO (08:49)
--- NOTE | 2024-05-23 09:36 | W.PN.HOSP.TC ---
Today's Communication/Plan
-
Adjust insulin doses
Remove Keane
Replace K
Assessment / Plan
Assessment / Plan
Physical Exam
General: Not in distress, looks comfortable
HEENT: Other (dry MM )
Respiratory: Clear
Cardiac: S1/S2 and Tachycardia
GI: Soft, Non Tender and Non Distended
Genito-urinary: Clear Urine and Keane
Musculoskeletal: No Cyanosis and No Edema
Skin: No Jaundice
Neuro: Awake, oriented X3, followed commands
Psych: Calm, No Agitated
58 years old male presented with diabetic ketoacidosis and change in mental status
# Type I DM
Poorly controlled due to non-compliance
HGB A1C 15.4
He needed 12 units NovoLog of his coverage in the last 24 hours
Will increase Lantus to 27 units
Keep same dose of Premeal insulin
c/w ISS and accordingly adjust
# Diabetic ketoacidosis due to noncompliance to medication, insulin
Resolved s/p DKA protocol and insulin gtt
# Hyponatremia, mild
# Abdominal discomfort due to N/V at home for few days
non tender abdomen, introduce diet slowly. s/p Reglan pre-meals for one day then change to PRN
# Leukocytosis, likely reactive. No fever. No hypoxia
WBC is coming down
# Acute kidney injury secondary to diabetic ketoacidosis, resolved with IVF
#Acute urinary retention
Remove Keane now
# Hypokalemia, replace
# History of primary hypertension. Resume lisinopril
Added as needed hydralazine
# Sinus tachycardia, reactive
# Toxic metabolic encephalopathy due to diabetic ketoacidosis , resolved. Back to baseline.
Non focal neuro exam
# Hypothermia, reactive, resolved.
# DVT and GI prophylaxis
Total time spent to see the patient, examine the patient, review data and lab results, and discuss the treatment plan with patient, and nurse around 57 minutes
Anticipated Discharge: Within 24 hours
Subjective/Interval History
-
Date of Service: May 23, 2024
No chest pain
No sob
Objective Data
-
Labs:
Laboratory Results
05/23/24
07:03
WBC 7.6
Hgb 14.6
Hct 40.2
Plt Count 251
Sodium 133 L D
Potassium 3.0 L
Chloride 93 L
Carbon Dioxide 31 H
BUN 12
Creatinine 0.4 L
Glucose 236 H
Calcium 9.5
Vital Signs:
Vital Signs
Temp Pulse Resp BP Pulse Ox
98.4 F 90 16 137/90 98
05/23/24 07:58 05/23/24 07:58 05/23/24 07:58 05/23/24 07:58 05/23/24 07:58
I&O
05/22/24 05/23/24 05/24/24
06:59 06:59 06:59
Intake Total 1780 / 1780 3180 / 3180
Output Total 5350 / 5350 5100 / 5100
Balance -3570 / -3570 -1920 / -1920
[2024-05-23] MEDS: KCL 40 MEQ PO (10:07)
[2024-05-23 11:19] LABS: Glucose - Point of Care 301 mg/dl (70-99)
[2024-05-23] MEDS: NOVOLOG FLEXPEN-HIGH RESISTANCE 10 UNITS SC (11:58)
[2024-05-23 15:18] VITALS: BP 129/84
[2024-05-23 16:32] LABS: Glucose - Point of Care 229 mg/dl (70-99)
[2024-05-23 21:28] LABS: Glucose - Point of Care 310 mg/dl (70-99)
[2024-05-23] MEDS: LANTUS 0.27 UNITS SC (21:41)
[2024-05-23 23:57] VITALS: BP 117/78
[2024-05-24] MEDS: TYLENOL 1000 MG PO ×2 (00:23→12:42)
--- NOTE | 2024-05-24 00:26 | PTCARENOTE ---
Patient c/o pain to chest/'esophagus' stating he was throwing up at home for about a week and this pain has been ongoing since then. Tylenol provided, see JAN. Will monitor.
[2024-05-24 07:00] VITALS: BP 131/85
[2024-05-24 07:53] LABS: Glucose - Point of Care 315 mg/dl (70-99)
[2024-05-24] MEDS: NOVOLOG FLEXPEN-HIGH RESISTANCE 10 UNITS SC (08:25)
[2024-05-24] MEDS: PROTONIX 40 MG PO (08:26)
[2024-05-24] MEDS: NOVOLOG FLEXPEN 7 UNITS SC ×2 (08:26→12:28)
[2024-05-24] MEDS: LANTUS 0.08 UNITS SC (08:56)
[2024-05-24 09:49] LABS: Blood Urea Nitrogen 10 mg/dl (9-20); Calcium 9.4 mg/dl (8.4-10.2); Carbon Dioxide 38 mmol/L (22-30); Chloride 89 mmol/L (98-107); Estimated Creatinine Clearance 116 ml/min; Glucose 274 mg/dl (70-99); Potassium 3.5 mmol/L (3.5-5.1); Sodium 133 mmol/L (135-145); eGFR > 60.00
[2024-05-24 12:23] LABS: Glucose - Point of Care 207 mg/dl (70-99)
[2024-05-24] MEDS: NOVOLOG FLEXPEN-HIGH RESISTANCE 4 UNITS SC (12:28)
--- NOTE | 2024-05-24 13:09 | W.DCSUMMARY ---
Discharge Summary
Discharge Data
Date of Admission: 05/20/24
Date of Discharge: 05/24/24
-
Pending Results: No
Hospital Course
58 years old male who presented with diabetic ketoacidosis. Patient was not taking his insulin medication for several weeks. Patient reported that he started to feel ill, nausea and did not check his blood glucose. He had nausea with vomiting
and abdominal discomfort on admission. He was found to have diabetic ketoacidosis with acute kidney injury, metabolic acidosis, leukocytosis and hyponatremia. Patient was admitted to the intensive care unit. He received intravenous insulin with
intravenous hydration. Patient was followed by intensive care doctor. Patient received appropriate electrolyte replacement therapy according to the protocol. Patient had acute urinary retention and needed Keane catheter. Patient started to
improve with resolution of ketoacidosis. He was started on insulin therapy with subcutaneous long-acting insulin and short acting insulin. He started to tolerate diet. He was given Protonix for heartburn. He passed voiding trial. Renal
function went back to normal. His hemoglobin A1c was 15.4. 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 His blood glucose was monitored. Patient tolerated diet well. He
remained hemodynamically stable and was discharged in a stable condition. Patient was counseled regarding importance of compliance with his medications and diabetes control, he verbalized understanding.
Physical Exam
General: Not in distress, looks comfortable
HEENT: No deformities. Moist mucous membrane
Respiratory: Clear
Cardiac: S1/S2 and Tachycardia
GI: Soft, Non Tender and Non Distended
Genito-urinary: Clear Urine, no hematuria.
Musculoskeletal: No Cyanosis and No Edema
Skin: No Jaundice
Neuro: Awake, oriented X3, followed commands. Gait is normal. No focal deficit
Psych: Calm, No Agitated.
Total discharge time spent to see the patient, examine the patient, review data and lab results, and discuss the discharge plan with patient, nurse around 65 minutes
Discharge Plan
-
Patient Disposition: Home (Routine Discharge)
Discharge Diagnosis/Procedures: Uncontrolled diabetes
Acute kidney injury
Diabetic ketoacidosis
Heartburn
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
Diet: Diabetic, Carb Controlled
Referrals:
UNKNOWN - PT NOT,INTERVIEWE [Family Provider] -
Prescriptions:
New
pantoprazole 40 mg Tablet,Delayed Release (Dr/Ec)
40 mg PO DAILY Qty: 30 0RF
insulin glargine [Lantus U-100 Insulin] 100 unit/mL solution
35 unit SC QPM Qty: 10 0RF
insulin aspart U-100 [Novolog FlexPen U-100 Insulin] 100 unit/mL (3 mL) insulin pen
10 unit SC AC Qty: 15 0RF
Rx Instructions:
Before meals
lisinopril 10 mg tablet
10 mg PO DAILY Qty: 30 0RF
Discontinued
gabapentin 100 mg Capsule
100 mg PO TID 30 Days Qty: 90 0RF
lisinopril 20 mg Tablet
20 mg PO DAILY 30 Days Qty: 30 0RF
insulin lispro [Humalog KwikPen Insulin] 100 unit/mL Insulin Pen
12 unit SC AC Qty: 5 0RF
Discharge Orders:
Discharge Patient (As Directed); Ordered 05/24/24
Ordered By: Janay Lyons
Discharge Date and Time
Print Language: KAZAKH
[2024-05-24 13:57] VITALS: BP 124/82
== END 2024-05-24 14:20 | disposition home health service (06) | DRG 637 ==
LOC: 3 WEST ACU 10:38
PROVIDERS: Nurse Practitioner Primary Care; ADMITTING PHYSICIAN Internal Medicine; EMERGENCY PHYSICIAN Emergency Medicine; OTHER PHYSICIAN Internal Medicine
DX: E11.10 Type 2 diabetes mellitus with ketoacidosis without coma (principal); G92.8 Other toxic encephalopathy; E87.1 Hypo-osmolality and hyponatremia; E87.20 Acidosis, unspecified; N17.9 Acute kidney failure, unspecified; E78.5 Hyperlipidemia, unspecified; E86.0 Dehydration; F15.11 Other stimulant abuse, in remission; R33.8 Other retention of urine; I10 Essential (primary) hypertension; R68.0 Hypothermia, not associated with low environmental temperature; E87.6 Hypokalemia; Z79.4 Long term (current) use of insulin; Z91.141 Patient's other noncompliance with medication regimen due to financial hardship
CPT/HCPCS: 51702; 71045; 80048; 80053; 80306; 81003; 81015; 82010; 82805; 82947; 82962; 83036; 83605; 83735; 84100; 84132; 85025; 85027; 85610; 85730; 86803; 87070; 93005; 96361; 96374; 97162; 97166; 99291

== ENCOUNTER 2025-09-06 14:45 | Inpatient (IN) | payer OTHER, SELFPAY ==
[2025-09-06] VITALS (27 sets, daily range): BP systolic 85–148; BP diastolic 60–100; BMI 28.2; BMI 28.6
[2025-09-06 10:56] LABS: Hematocrit 43.4 % (39.0-52.0); Hemoglobin 13.9 g/dL (13.0-18.0); Mean Corp Hgb Conc. 32.0 g/dL (33.0-37.0); Mean Corpuscular Volume 91.0 fL (80.0-94.0); Nucleated Red Blood Cells % 0 % (-); Platelet Count 220 10^3/uL (130-400); Red Cell Dist. Width 12.5 % (11.5-14.5)
[2025-09-06 11:07] LABS: COVID-19 Antigen Negative (Negative)
[2025-09-06 11:13] LABS: Glucose - Point of Care 67 mg/dl (70-99)
[2025-09-06 11:16] LABS: ALT (SGPT) 30 U/L (0-50); AST (SGOT) 41 U/L (17-59); Albumin 3.7 g/dl (3.5-5.0); Alkaline Phosphatase 107 U/L (38-126); Blood Urea Nitrogen 17 mg/dl (9-20); Calcium 8.5 mg/dl (8.4-10.2); Carbon Dioxide 24 mmol/L (22-30); Chloride 105 mmol/L (98-107); Glucose 81 mg/dl (70-99); Magnesium 0.8 mg/dl (1.6-2.3); Potassium 3.5 mmol/L (3.5-5.1); Sodium 137 mmol/L (135-145); Total Protein 6.7 g/dl (6.3-8.2); eGFR > 60.00
[2025-09-06 11:20] LABS: Troponin I 0.084 ng/ml
--- NOTE | 2025-09-06 11:22 | EDRN ---
when the pt arrived the pt was covered in feces, mike RN, Nohemy RN, Dr. Portillo and Maria Isabel PCT cleaned the pt with soap and water, new gown and linens were provided
--- NOTE | 2025-09-06 11:29 | ED.GENMED ---
History of Present Illness
General
Chief Complaint: Unresponsive
Source: patient
Exam Limitations: none
Time Seen by Provider: 09/06/25 10:52
Nursing documentation reviewed up to this point in time: agreed with
History of Present Illness
History of Present Illness:
Note:
CHIEF COMPLAINT(S)
Unresponsiveness and potential drug overdose.
HISTORY OF PRESENT ILLNESS
The patient is a 62-year-old male who presented to the emergency department with unresponsiveness. It was reported by his family members, specifically his mother and brother, that he responded to painful stimuli only intermittently. The family also
noticed bags of substances that resemble methamphetamine, suggesting a potential overdose. They mentioned a background of substance misuse, as they recently found out he had been using methamphetamine when he returned home a few days ago. Initially,
the family reported he was behaving erratically, which aligns with the concern of substance misuse.
CHRONIC MEDICAL CONDITIONS SIGNIFICANTLY AFFECTING CARE
The patient has diabetes mellitus, noted with a blood glucose level in the 80s upon EMS arrival.
SOCIAL DETERMINANTS AFFECTING HEALTH
The patient may be experiencing substance use issues, indicated by empty bags resembling methamphetamine found by the family. The living situation is possibly unstable, as indicated by the family describing the house as gross and not
well-maintained, which may contribute to the patients health challenges.
PHYSICAL EXAM
General: Unresponsive, with only slight responsiveness to pain stimuli.
Skin: Multiple abrasions on feet, legs and arms, covered in fecal matter
Head: Atraumatic
Neck: No C-spine tenderness or step-off
Eye Ears, nose, mouth, and throat: Conjunctiva injected bilaterally
Cardiovascular: Blood pressure fluctuating around 98 to 100.
Respiratory: Cough, lungs clear
Gastrointestinal: Abdomen soft, nontender
Back: No step-off, no CVA tenderness
Musculoskeletal: Moves all extremities
Neurological: Awakens, moves all extremities, but does not answer questions
Psychiatric: History of erratic behavior concerning for substance abuse.
PROBLEM LIST
Acute:
- Unresponsiveness
- Suspected drug overdose (Methamphetamine)
Chronic:
- Diabetes Mellitus
PLAN
- Obtain toxicology screening to determine substances present in the patient�s system.
- Initiate treatment for a suspected overdose, potentially involving activated charcoal or naloxone, depending on findings.
- Monitor blood glucose levels due to the history of diabetes and provide necessary glucose management.
- Consider referral to geriatric social work professor or substance use counseling following acute management.
DIFFERENTIAL DIAGNOSIS
The Differential Diagnosis includes, in no particular order and is not limited to:
1. Substance overdose (Methamphetamine)
2. Hypoglycemia
3. Stroke
4. Sepsis
5. Intracranial bleed
6. Seizure disorder
7. Cardiogenic shock
8. Electrolyte imbalance
9. Respiratory failure
10. Acute confusional state due to intoxication
Disposition:
SUMMARY OF ENCOUNTER
The patient, a 62-year-old male, presented to the emergency department unresponsive, suspected of a methamphetamine overdose. The family found him unresponsive and noted a history of erratic behavior. Upon examination, the patient was intermittently
responsive to painful stimuli and had multiple abrasions on his feet and arms. A normal chest x-ray and a head CT showed no acute findings. The toxicology screen was positive for methamphetamine. The patient was initially unresponsive, but after
administration of IV D5NS, his blood sugar improved, and he awoke, although he remained agitated and uncooperative.
ASSESSMENT
The patient has unresponsiveness due to suspected methamphetamine overdose, with secondary findings of multiple abrasions, possible altamethalitis, hypokalemia, and hypoglycemia.
EMERGENCY TREATMENTS ADMINISTERED
IV D5NS was administered, improving the patients blood sugar levels.
INDEPENDENT REVIEW OF LABS AND INTERPRETATION OF TESTS
My independent review of the head CT shows no acute findings. My independent interpretation of the chest x-ray is normal. The toxicology screen shows the presence of methamphetamine.
MEDICATION RECONCILIATION
IV D5NS was administered during the visit.
MEDICAL DECISION MAKING
- Complexity of Data Reviewed: Chronic conditions affecting care include diabetes mellitus. The DDx list from the differential diagnosis includes substance overdose (methamphetamine), hypoglycemia, stroke, sepsis, intracranial bleed, seizure
disorder, cardiogenic shock, electrolyte imbalance, respiratory failure, and acute confusional state due to intoxication.
- Data:
Category 1: Tests and documents included head CT and chest x-ray.
Category 2: Clinical information was obtained from an independent historian, specifically the patient�s family.
- Risk: Prescription drug management or therapy requiring monitoring for toxicity was considered. Care is significantly affected by social determinants of health, including unstable living conditions and substance use issues.
DIAGNOSIS
1. Methamphetamine overdose (ICD-10: F15.10)
2. Hypomagnesemia
3. Hypoglycemia
4. altered mental status
4. Multiple abrasions (ICD-10: Laceration unspecified)
Past History
Past History
ED Past Medical History: HTN, Hypercholesterolemia and IDDM
Social History
Tobacco: Smoker
Alcohol: None
Drug: Cocaine, Narcotics and IVDA
Personal: Single
Employment: Employed
Family History
Family History: CAD
Phy Exam
Physical Exam
Physical Exam:
.
Course
Orders/Labs/Results
Orders:
Orders
09/06/25 10:34
Straight cath- Treatment ONCE
09/06/25 10:38
EKG [Electrocardiogram (*1)] Urgent
Reason for Study: Fatigue / Weakness
09/06/25 10:39
EKG- Treatment ONCE
09/06/25 10:42
COVID-19 Antigen Urgent
Source: Nasal Swab
Complete Blood Count/With Diff Urgent
Comprehensive Metabolic Panel Urgent
Creatine Phosphokinase Urgent
Fentanyl, Urine Urgent
Magnesium Urgent
NT-proBNP Urgent
Comment: ADD ON
Troponin I Urgent
Urinalysis Reflex To Culture Urgent
Date Specimen was Collected: 09/06/25
Time Specimen was Collected: 10:41
Urine Drug Abuse Screen Urgent
Date Specimen was Collected: 09/06/25
Time Specimen was Collected: 10:41
Urine Microscopic Reflex Cult Urgent
Influenza A+B Rapid Molecular Urgent
MARYA Source: Nasal Swab
Specimen Description:
Date Specimen was Collected: 09/06/25
Time Specimen was Collected: 10:41
Urine Culture Urgent
MARYA Source: U
Specimen Description:
Date Specimen was Collected: 09/06/25
Time Specimen was Collected: 10:41
09/06/25 10:45
Lactic Acid Urgent
Blood Culture Urgent
MARYA Source: Blood/Venous
Specimen Description:
09/06/25 10:54
CT Facial Bones W/ Iv Contrast Urgent
Comment:
Reason For Exam: mouth swelling, altered
09/06/25 10:55
CT Head W/o Iv Contrast Urgent
Comment:
Reason For Exam: altered mental status
09/06/25 11:11
CR Chest Portable - 1 View Urgent
Comment:
Reason For Exam: cough, unresponsive
Reason Study Needs to be Portable: Patient Unstable
09/06/25 11:36
Magnesium Sulfate 2 Gram/50 ml [Magnesium Sulfate] 2 gram in 50 ml IV NOW
09/06/25 11:39
Add On- LAB Urgent
Tests Added?: cpk
09/06/25 11:40
Blood Culture Urgent
MARYA Source: Blood/Venous
Specimen Description:
09/06/25 12:00
Dextrose 5%/0.9%Sodchl 1000 ml [D5/0.9% Sodium Chloride] 1,000 ml IV 999 mls/hr
09/06/25 12:22
Add On- LAB Urgent
Tests Added?: bnp
Abnormal Lab Results
09/06/25 09/06/25 09/06/25
10:42 11:12 13:06
WBC 11.0 H 10^3/uL
(4.8-10.8)
MCHC 32.0 L g/dL
(33.0-37.0)
Absolute Neuts (auto) 9.1 H 10^3/uL
(1.4-6.5)
Absolute Lymphs (auto) 1.0 L 10^3/uL
(1.2-3.4)
Absolute Monos (auto) 0.9 H 10^3/uL
(0.1-0.6)
Neutrophils % 82.6 H %
(42.2-75.2)
Lymphocytes % 8.7 L %
(20.5-51.1)
Creatinine 0.6 L mg/dL
(0.7-1.3)
Magnesium 0.8 L* mg/dl
(1.6-2.3)
Total Bilirubin 2.3 H mg/dl
(0.2-1.3)
Troponin I 0.084 H* ng/ml
Urine Ketones 3+ A
(Negative)
Ur Occult Blood Reflex 3+ A
(Negative)
Urine Bacteria (Reflex) Moderate A
(Negative)
Urine Albumin (Reflex) 3+ A
(Neg - Trace)
Ur Amphetamines Screen Positive H
(Negative)
U Methamphetamines Scrn Positive H
(Negative)
POC Glucose 67 L mg/dl 193 H mg/dl
(70-99) (70-99)
09/06/25 10:42
09/06/25 10:42
Vital Signs
Initial and Last Documented VS:
Initial Vital Signs
Temp Pulse Resp BP Pulse Ox
99.1 F 109 20 142/100 97
09/06/25 10:34 09/06/25 10:34 09/06/25 10:34 09/06/25 10:34 09/06/25 10:34
Last Documented Vital Signs
Temp Pulse Resp BP Pulse Ox
98.6 F 102 15 148/99 100
09/06/25 13:12 09/06/25 13:12 09/06/25 13:12 09/06/25 13:12 09/06/25 13:12
*Pulse Oximetry
SaO2: 97
Oxygen Mode of Delivery: Room air
Patient hypoxic: no
*Critical Care Note
Total Time (30-74mins, 75-104mins- exclusive of procedures): 30
comment:
Critical care statement: A total of 30 minutes of critical care time was provided for this patient. This includes management of unstable vital signs, evaluation of the patient at bedside, reviewing the patient's pertinent medical records, discussion
with consultants, review of old EKGs and review of pertinent medical records. This time with separate from time utilized to perform the aforementioned documented procedures
ED Attending Note
-
Portions of this chart may have been created with voice recognition software.� Occasional wrong word or��sound alike� substitutions may have occurred due to the inherent limitations of voice recognition software.
Discharge Plan
Departure
Patient Disposition: Admit
Date of Disposition: 09/06/25
Time of Disposition: 13:05
Admit to: ICU
Presentation/result/management discussed w/ accepting MD/DO: Hospitalist
Patient with high blood pressure during this ER visit?: Yes
Condition: Fair
Discharge Problem:
Acute alteration in mental status, Methamphetamine abuse, Abrasion of foot, Hypomagnesemia, Hypoglycemia
Prescriptions:
No Action
insulin aspart U-100 [Novolog FlexPen U-100 Insulin] 100 unit/mL (3 mL) insulin pen
10 unit SC AC Qty: 15 0RF
Rx Instructions:
Before meals
lisinopril 10 mg tablet
10 mg PO DAILY Qty: 30 0RF
atorvastatin [Lipitor] 40 mg Tablet
40 mg PO DAILY
insulin glargine [Lantus U-100 Insulin] 100 unit/mL solution
35 unit SC QPM
Referrals:
Fela Hooper MD [Family Provider, Internal Medicine]
Interventions
Interventions:
*Risk Screen - Suicide Last Done: 09/06/25 10:34
*General Assessment Last Done: 09/06/25 10:34
*Neglect/Abuse Screening Last Done: 09/06/25 10:34
*ED- Fall Risk Assessment Last Done: 09/06/25 10:34
*ED COVID-19 Vaccine History Last Done: 09/06/25 10:34
*ED Influenza Vaccine History Last Done: 09/06/25 10:34
ED- Neurological Assessment Last Done: 09/06/25 10:34
Discharge Date and Time
Print Language: KHMER
--- NOTE | 2025-09-06 11:35 | EDRN ---
this RN noticed that the pts Sp02 was 90%, this RN notified Dr. Portillo and placed 3L NC and Sp02 is 100% currently
[2025-09-06 11:38] LABS: Urine Character Clear (Clear)
[2025-09-06] MEDS: D5/0.9% SODIUM CHLORIDE 1000 IV ×2 (11:42→15:02)
[2025-09-06] MEDS: MAGNESIUM SULFATE 50 IV ×2 (11:50→20:21)
[2025-09-06 12:01] LABS: Urine White Cell Cast 0-2 /LPF
[2025-09-06 12:04] LABS: Urine Squamous Cell 0-2 /LPF (Few)
[2025-09-06 12:06] LABS: Urine Red Blood Cell 0-2 /HPF (0-2)
[2025-09-06 12:08] LABS: Glucose - Point of Care 95 mg/dl (70-99)
--- NOTE | 2025-09-06 12:27 | EDRN ---
unable to have CT facial bones performed, the pt kept moaning and groaning and yelling out, per CT scan will attempt at a later times, while in CT scan the pt was flailing and almost kicked this RN in the face, per Dr. Portillo, okay to attempt CT
of facial bones at a later time
--- NOTE | 2025-09-06 12:33 | EDRN ---
the pt had an episode of incontinence of urine, this RN cleaned the pt with PCT and provided a new gown, linens, and covidian and draw sheet, will continue to monitor the pt closely
[2025-09-06] MEDS: D5/0.9% SODIUM CHLORIDE IV ×3 (13:02→15:02)
[2025-09-06 13:07] LABS: Glucose - Point of Care 193 mg/dl (70-99)
--- NOTE | 2025-09-06 13:41 | W.PN.UPDATE ---
Update Note
Progress Note Update
I could not get any information from the patient as�
Information gathered by chart review and speaking with the family, ER attd
This note serves as an addendum to the H&P by sales recruitment specialist GEOFF�
Christineangela Issa
�
HPI
62M HX IDDM, DKA, HTN( Lisinopril) DLP( Atorvastatin) seen at ER
- presented to the ER with unresponsiveness
- reported by his family members, specifically his mother and brother, that he responded to painful stimuli only intermittently
- The family also noticed bags of substances that resemble methamphetamine, suggesting a potential overdose.
- HX background of substance use disorder
- recently found out he had been using methamphetamine when he returned home a few days ago.
- Initially, the family reported he was behaving erratically, which aligns with the concern of substance misuse.
PHX
:
Relevant VS
09/06/25
11:00 09/06/25
13:12
Temp 98.6 F
Temp route: Rectal
Pulse 110 102
Resp Rate 22 15
Blood pressure 148/99
SaO2 97 100
Nasal Cannula flow liters per minute 3
PE:
Gen: unresponsive , snoring, moaning
HEENT: multiple dry blood and abrasion , b/l upper eyelids swelling, conjunctivitis or conjunctival congestion, patient close down the eye lids when attempt size tester attempt to open eye lids
Neck: Full and prominent EJD
Lungs: symmetric AE
Cor: RRR
Abdomen:�soft
GREENS CUTTER: unresponsive
MS:moves all limbs symmelically
Relevant Data
09/06/25 09/06/25
10:42 10:45
WBC 11.0 H
Potassium 3.5
Creatinine 0.6 L
eGFR > 60.00
Glucose 81
Lactic Acid 1.4
Magnesium 0.8 L*
Total Bilirubin 2.3 H
AST 41
ALT 30
Alkaline Phosphatase 107
Creatine Kinase 716 H
Troponin I 0.084 H*
Uyt-C-Jitgykvxtog Pept 9900
Ur Amphetamines Screen Positive H
U Methamphetamines Scrn Positive H
EKG
SINUS TACHYCARDIA
LEFT AXIS DEVIATION
LOW VOLTAGE QRS
SEPTAL INFARCT , AGE UNDETERMINED
ABNORMAL ECG
WHEN COMPARED WITH ECG OF 20-May-2024 08:20,
PREMATURE ATRIAL COMPLEXES ARE NO LONGER PRESENT
QRS AXIS SHIFTED LEFT
NONSPECIFIC T WAVE ABNORMALITY NO LONGER EVIDENT IN INFERIOR LEADS
T WAVE INVERSION NOW EVIDENT IN ANTERIOR LEADS
Confirmed by KAT FELICIANO COURTNEY ([id number]) on 09/06/2025 12:39:40 PM
CXR:
Low lung volumes without focal airspace disease or overt pulmonary edema.
HCT
No acute intracranial abnormality.
Chronic paranasal sinus inflammatory changes.
Last hospitalist admission:
ASSESSMENT & PLAN
AMS with unresponsiveness due to multifactorial hypoactive TME
Diff etiologies of TME: Amphetamine OD, Hypoglycemia, severe electrolytes depletion ( Hypomagnesemia, relative hypokalemia) +/_ acute diastolic HF +/_ NIMI vs NSTEMI , less likely acute infective
Elevated and full EJD + Elevated TPNI and elevated proBNP : Drug induced CM with diastolic dysfunction or failure, Episode of transient arrhythmias induced by Amphetamines ??
Mild Rhabdomyolysis suspect due to Amphetamines or - preserved renal function
Recent behavioral dysfunction suspect Substance use disorder
- So far protecting AW
- NEG HCT
- NEG CXR
- Leucocytosis suspect reactive
- BCx sent
- Empiric IV Vancomycin and Zosyn
- Correction of electrolytes: s/p 2 gm Mg , repeat Mg in 4 hrs and to give another IV 2 gm of Mg. IV KCL 40 Vini
- Hypoglycemic protocol
- IV NS
- Neuro checks q4h
- aspiration precaution
- daily wt and daily IOs
- ECHO
- Consult: ICU, [facility] Cardiology
B/l Conjunctivitis with discharge
- E Mycin opth oint
Multiple dry blood on the face
- pending Orbital Facial bones CT
Hypoglycemia - symptomatic
Low AG @ 8
HX Brittle IDDM due HX Non compliance with Insulin
Low AG @ 8
- add ISS mod
- Hypoglycemic protocol
- c/w IV D5 NS
DVT Px: LMWH
Full code
ICU
KnownTotal Critical Care Time___55__ minutes.
I was immediately available to the patient and staff. I personally examined, reviewed labs, diagnostic images/reports, interpretations, treatment plans, discussed patient care with other providers and family or caregivers (if patient is unable to
make decisions), entered orders as appropriate and documented the medical record.
--- NOTE | 2025-09-06 13:52 | HPS.HSE ---
Family Physician
-
Family Physician: Fela Hooper MD
Chief Complaint
-
Unresponsive covered in feces, history of methamphetamine use past few days
History of Present Illness
62-year-old male presented to ER with responsiveness only to painful stimuli intermittently. Family noticed bags of methamphetamine and were concerned of overuse. He reportedly returned home a few days ago and has been using methamphetamine and
behaving erratically. He was noted to have multiple abrasions on his feet, legs, arms and he was covered in fecal matter per ER. The patient is unresponsive he is moaning upper eyelids are swollen shut with exudate. He has past medical history of
DM2 uncontrolled with history of DKA, HTN, HLD.
Medical History
Past Medical History
Past Medical History: Reports Other
Additional Past Medical History:
history of DM2 uncontrolled with history of DKA, HTN, HLD.
Past Surgical History: Reports Other
Additional Past Surgical History:
unknown
Social History
Drug: Other (methamphetmaine)
Family History
Family History: Other (Siblings have high blood pressure. Father at the age of 57 from prostate cancer. Mother is living; has heart disease.)
Allergies / Home Medications
Allergies reflects when Allergies were last updated in [facility].
Home Medications with original date entered in [facility]
Allergy/Medication List:
Allergies
Allergy/AdvReac Type Severity Reaction Status Date / Time
No Known Allergies Allergy Verified 08/14/23 09:51
Home Medications
insulin aspart U-100 100 unit/mL (3 mL) subcutaneous pen (Novolog FlexPen U-100 Insulin aspart) 10 unit (0.1 mL) SC AC #15 mL 05/24/24
atorvastatin 40 mg tablet (Lipitor) 40 mg PO DAILY 09/06/25
insulin glargine 100 unit/mL subcutaneous solution (Lantus U-100 Insulin) 35 unit SC QPM 09/06/25
lisinopril 20 mg tablet 20 mg PO DAILY 09/06/25
Review of Systems
-
History Source: Physician and Other (nurse)
A 12 point ROS was completed and negative except as noted: Yes
Constitutional: Denies Fever or Chills
EENT: Reports Other (acial swelling and eye drainage)
Respiratory: Denies Cough or Trouble Breathing
Cardiac: Denies Chest Pain, Palpitations or Syncope
Abdomen/GI: Reports Diarrhea and Other (was covered in feces ); Denies Vomiting
Musculoskeletal: Denies Joint Pain or Edema
Skin: Reports Other (abrasion to face, arma and bilat lateral feet ); Denies Itching or Rash
Neurological: Reports Other (unresponsive )
Physical Exam
Vital Signs
Vital Signs
Temp Pulse Resp BP Pulse Ox
98.6 F 102 15 148/99 100
09/06/25 13:12 09/06/25 13:12 09/06/25 13:12 09/06/25 13:12 09/06/25 13:12
Physical Exam
General: Other (unresponsive but moaning and moving arms legs in bed)
HEENT: Other (swelling bilateral upper eyelids /orbits with yellow drainage abrasions to face)
Respiratory: Clear; No Wheezes, Rales or Rhonchi
Cardiac: S1/S2, Regular Rhythm and JVD; No Murmur, Rub, Gallop or Peripheral Edema
Breast: Deferred by me
GI: Soft, Non Tender, Non Distended and Normal Bowel Sounds
Genito-urinary: Deferred by me
Musculoskeletal: No Clubbing, No Cyanosis and No Edema
Skin: Warm, Dry and Other (abrasions face arms feet bilat ); No Rash
Neuro: Other (unresponsive but moaning and moving all extremities)
Laboratory Results
-
09/06/25 10:42
09/06/25 10:42
Laboratory Results
Lactic Acid 1.4 mmol/L (0.7-2.0) 09/06/25 10:45
Total Bilirubin 2.3 mg/dl (0.2-1.3) H 09/06/25 10:42
AST 41 U/L (17-59) 09/06/25 10:42
ALT 30 U/L (0-50) 09/06/25 10:42
Alkaline Phosphatase 107 U/L (38-126) 09/06/25 10:42
Troponin I 0.084 ng/ml H* 09/06/25 10:42
Impression/Plan
-
Impression/plan:
Admit to ICU
# TME multifactorial
#Polysubstance abuse
UDS positive amphetamines, methamphetamines
- Check blood cultures x 2
- Consult patrol officer
- Neurochecks every 4 hours
#Bilateral eye conjunctivitis with orbital edema
- Will check CT orbits
- Start E-Mycin ointment
#Elevated BNP 9900 unclear
I/O, daily weight
-Check 2D echo
- Consult cardiology
CXR: Low lung volumes without focal airspace disease or pulm edema
CT head: No acute intracranial abnormality
#Troponin
0.084 will trend
EKG: Sinus tach 109 bpm, QTc 471 MS T wave inversions evident in anterior leads
#Hypomagnesemia
Mag 0.8
-Given 2 g mag rider in ER
-Will give additional 2 g mag rider later this evening
-Follow mag level
#Hypokalemia�mild
K3.5
Will give KCl rider 40 mEq
#Abrasions right and left foot
- Local soap and water
Apply bacitracin
#DM 2 with mild hypoglycemia history noncompliance
#History of DKA May 2024
Anion gap 8
-Blood sugar 81 will follow Accu-Cheks and HgbA1c
-ISS low
-Patient given D5 NSS 1 L in ER
- Hypoglycemia protocol
- Hold Lantus 35 units every afternoon, NovoLog 10 units with meals
#Mild rhabdomylosis
CK 716 patient given 1 L of D5 NSS
#HLD
Hold Lipitor 40 mg daily
DVT prophylaxis
Subcu heparin
Full code
[2025-09-06 14:19] LABS: Troponin I 0.096 ng/ml
--- NOTE | 2025-09-06 14:53 | EDRN ---
this RN called the receiving ICU nurse Giana YANES
[2025-09-06] MEDS: KCL 270 MEQ IV (15:00)
--- NOTE | 2025-09-06 15:16 | CON.INTV ---
Addendum entered and electronically signed by Jose Serrano MD 09/07/25 00:09:
Patient seen and evaluated on 09/06/2025
Original Note:
Consultation
Consultation Request
Date/Time Consultation Requested: 09/06/2025 - 1438
Date/Time Consultation Performed: 09/06/2025 - 1505
Requesting Provider: DEREK Hernandez
Performing Provider: Dr. Serrano
Reason for Consultation: AMS/acute severe agitation
Medical History
-
Chief Complaint: Altered mental status/unresponsive
History of Present Illness:
60-year-old male with a past medical history of hypertension, diabetes, methamphetamine abuse, and hyperlipidemia who presents with being found unresponsive on the floor. 911 called and patient was arousable to pain by to EMS, with blood sugar 88.
500 cc bolus of fluids were given as his SBP was in the 90s. There appeared to be bags of drugs all over the room. When he arrived here to the ER he was moaning and groaning and covered in fecal matter. Patient remains unresponsive, unable to
interact with me for this HPI. In the ER he was tachycardic to 110, tachypneic to 22, BP 142/100 and he was saturating 97% on room air. Initial labs pertinent for mild leukocytosis to 11, Hb 13.9, magnesium 0.8, CK 7016, troponin 0.084, proBNP 9
900, urinalysis with +3 ketones and urine toxicology showing amphetamines + methamphetamines. Beta-hydroxybutyrate elevated at 3.22 and COVID-19 antigen was negative. His POCT glucose was low at 67. Blood and urine cultures collected. CT facial
bones showed no soft tissue abscess, CT head showed no acute intracranial abnormality, CXR showed low lung volumes without any focal airspace disease or pulmonary edema, and CT chest/abdomen/pelvis showed cardiomegaly with possible pulmonary
vascular congestion with small bilateral pleural effusions, small right lower lobe consolidation due to pneumonia versus atelectasis with fluid in the nondilated loops of small bowel, unable to exclude ileus/enteritis, with mild hepatomegaly with
suspected diffuse fatty liver and relative diffuse thickening of the wall of the urinary bladder due to either underdistention versus cystitis. Magnesium was given and due to his poor mental status with need for close monitoring and possible need
for intubation for airway protection, he was admitted to the ICU with manager of employee relations service consulted for additional management/recommendations.
Past Medical History
Past Medical History: Other (Above as per HPI)
Past Surgical History: Other (Above as per HPI)
Social History
Tobacco: Other (unable to obtain)
Alcohol: Other (unable to obtain)
Drug: Narcotics
Allergies / Home Medications
Allergies
Allergy/AdvReac Type Severity Reaction Status Date / Time
No Known Allergies Allergy Verified 08/14/23 09:51
Home Medications
�Medication �Instructions �Recorded �Confirmed �Last Taken �Type
insulin aspart U-100 100 unit/mL 10 unit (0.1 mL) SC AC #15 mL 05/24/24 09/06/25 Unknown Rx
(3 mL) subcutaneous pen (Novolog
FlexPen U-100 Insulin aspart)
atorvastatin 40 mg tablet (Lipitor) 40 mg PO DAILY 09/06/25 09/06/25 Unknown History
insulin glargine 100 unit/mL 35 unit SC QPM 09/06/25 09/06/25 Unknown History
subcutaneous solution (Lantus
U-100 Insulin)
lisinopril 20 mg tablet 20 mg PO DAILY 09/06/25 09/06/25 Unknown History
Review of Systems
-
Unable to Obtain full review of systems at this time due to: Acuity
Vitals / Labs / Diagnostic Testing
Vital Signs
Temp Pulse Resp BP Pulse Ox
98.6 F 102 15 148/99 100
09/06/25 13:12 09/06/25 13:12 09/06/25 13:12 09/06/25 13:12 09/06/25 13:12
Lab Data
09/06/25 10:42
09/06/25 10:42
Microbiology
09/06/25 10:42 Nasal Swab Influenza Types A & B (CATHIE) - Final
Negative for Influenza A & B, NAAT
Negative results must be combined with clinical observations
and patient history.
Nucleic Acid Amplification test (NAAT)performed on the
[employer] platform.
Diagnostic Testing:
Physical Exam
-
HEENT: Normocephalic and Anicteric
Cardiovascular: S1/S2
Respiratory: Wheeze (n), Rales (R-base) and Non-Labored Respirations
GI: Soft, Non Distended and Non Tender
Neurology: Tremors (n)
Skin: Warm and Dry
General: Respiratory Distress (n), Fever (n) and Chills (n)
Assessment
-
Assessment: 60-year-old male with a past medical history of hypertension, diabetes, methamphetamine abuse, and hyperlipidemia who presents with being found unresponsive on the floor. 911 called and patient was arousable to pain by to EMS, with
blood sugar 88. 500 cc bolus of fluids were given as his SBP was in the 90s. There appeared to be bags of drugs all over the room. When he arrived here to the ER he was moaning and groaning and covered in fecal matter. Patient remains
unresponsive, unable to interact with me for this HPI. In the ER he was tachycardic to 110, tachypneic to 22, BP 142/100 and he was saturating 97% on room air. Initial labs pertinent for mild leukocytosis to 11, Hb 13.9, magnesium 0.8, CK 7016,
troponin 0.084, proBNP 9 900, urinalysis with +3 ketones and urine toxicology showing amphetamines + methamphetamines. Beta-hydroxybutyrate elevated at 3.22 and COVID-19 antigen was negative. His POCT glucose was low at 67. Blood and urine
cultures collected. CT facial bones showed no soft tissue abscess, CT head showed no acute intracranial abnormality, CXR showed low lung volumes without any focal airspace disease or pulmonary edema, and CT chest/abdomen/pelvis showed cardiomegaly
with possible pulmonary vascular congestion with small bilateral pleural effusions, small right lower lobe consolidation due to pneumonia versus atelectasis with fluid in the nondilated loops of small bowel, unable to exclude ileus/enteritis, with
mild hepatomegaly with suspected diffuse fatty liver and relative diffuse thickening of the wall of the urinary bladder due to either underdistention versus cystitis. Magnesium was given and due to his poor mental status with need for close
monitoring and possible need for intubation for airway protection, he was admitted to the ICU with manager of employee relations service consulted for additional management/recommendations.
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
HTN
Hyperlipidemia
Insulin-dependent diabetes w/ neuropathy
Substance abuse, UDS + meth/amphet
Cocaine/heroine/meth history, incarceration
Lumbar back pain
Impression:
#Acute encephalopathy likely due to polysubstance use with intoxication
#Leukocytosis (mild)
#Hypomagnesemia
#Elevated CK due to mild rhabdomyolysis
#Elevated troponin likely due to either demand ischemia or due to rhabdomyolysis
#Elevated proBNP
#Polysubstance abuse with amphetamine/methamphetamine abuse
#DM type II (uncontrolled with HbA1C> 14% on 05/20/2025) c/b hypoglycemia
#Starvation ketosis
Plan:
- When patient arrived to ICU he was extremely agitated, unable to calm down and this was after he had already received 2mg versed and 50mcg fentanyl
- I gave 100mg phenobarbital, 10mg zyprexa IM and this calmed him down nicely
- Start precedex gtt, weaning down to lowest dose needed to maintain RASS of around 0, given that he is not intubated (hence do not want to over-sedate him)
- Keep HOB> 30-45�; continue aspiration precautions
- Maintain SpO2 >90-94% using supplemental O2 if needed
- Keep NPO for now
- Monitor BG q4-6hr given he was hypoglycemic on admission
- If mentation does not improve, then will need to consider obtaining a sedated MRI brain and possibly EEG with neuro consult
- Continue IVF given his rhabdo
- Trend CPK until <500
- Trend troponin until it peaks
- Cardiology consulted and recs appreciated
- CT Chest shows RLL consolidation concerning for aspiration pneumonia; there is also evidence of interstitial prominence concerning for acute CHF
- No prior echo on file
- Continue broad-spectrum antibiotics, with Vanc/Zosyn
- Follow-up blood cultures, urine culture and MRSA screen; if MRSA screen negative then believe it would be safe to DC IV vancomycin
- Check echo; monitor I/O and daily weight; cautiously give IVF, which considering his altered mental status and right lower lobe pneumonia, believe that he would benefit currently with fluids but there needs to be a stop date preferably within
the next 16-24 hours
- He also is getting bacitracin eye ointment given his eye lid swelling; no soft tissue abscess or other acute pathology seen on CT sinuses or CT head
- Trend WBC and monitor temperature curve
- Maintain MAP>65
- Replete electrolytes with K>4, Mg>2
- Maintain euglycemia with goal BG 140-180; recheck A1C
- Trend H/H and transfuse if needed to keep Hb>7g/dL; keep plt>20k, unless there is concern for bleeding then keep plt>50k
- prn nebulized bronchodilators - not currently bronchospastic
- Incentive spirometer encouraged 10x per hour for at least 4 hrs a day
- DVT ppx: Change HSQ to LMWH
Continue ICU level of care for this critically ill patient.
Critical care statement: A total of 42 minutes of critical care time was provided for this patient today. This includes management of unstable vital signs, evaluation of the patient at bedside, reviewing the patient's pertinent medical records
including radiographs, microbiology, laboratory evaluations, and discussion with primary team, consultants, pharmacy, nutrition, physical therapy, case management, charge nurse, critical care nursing, and respiratory therapy.
--- NOTE | 2025-09-06 15:24 | EDRN ---
awaiting for CT to call this RN to notify this RN when they are ready for the pt, then after CT scan this RN will take the pt to the ICU
--- NOTE | 2025-09-06 15:52 | W.PN.UPDATE ---
Update Note
Progress Note Update
Patient agitated moaning and yelling thrashing arms and legs however is unable to follow any commands eyes are open does not turn head when name is called
- [employer] made aware
- Will give IV fentanyl 50 mcg and 2 mg Versed now then proceed to CT scan and to ICU
--- NOTE | 2025-09-06 15:54 | EDRN ---
respiratory was at the pts bedside and was unable to obtain a blood gas due to the pt thrashing and attempting to hit and kick staff, the pt is becoming more awake and is starting to open his eyes and continuously moans and groans and yells out
[2025-09-06] MEDS: VERSED 2 MG IV ×2 (16:13→16:33)
[2025-09-06] MEDS: SUBLIMAZE 50 MCG IV (16:13)
[2025-09-06] MEDS: PHENOBARBITAL 97.5 MG IV (17:13)
[2025-09-06] MEDS: ZYPREXA 10 MG IM (17:14)
[2025-09-06] MEDS: STERILE WATER FOR INJECTION 2.1 ML IM (17:15)
[2025-09-06] MEDS: PRECEDEX 100 IV ×2 (17:16→22:43)
[2025-09-06] MEDS: LR 1000 IV (18:17)
[2025-09-06] MEDS: BACITRACIN OINTMENT 1 APPLIC TOPICAL ×2 (18:34→21:58)
[2025-09-06] MEDS: VANCOCIN 540 MG IV (18:35)
[2025-09-06 18:38] LABS: Glucose - Point of Care 233 mg/dl (70-99)
[2025-09-06] MEDS: ERYTHROMYCIN 0.5% OPHTHALMIC OINTMENT 1 APPLIC OPHTH ×2 (18:44→21:58)
[2025-09-06] MEDS: ZOSYN 50 IV (18:46)
[2025-09-06 18:54] LABS: INR 1.35; PT 17.0 Sec (11.4-14.6)
[2025-09-06 18:55] LABS: APTT 30.7 Sec (23.4-35.0)
[2025-09-06 19:07] LABS: Magnesium 1.2 mg/dl (1.6-2.3)
[2025-09-06 19:18] LABS: Troponin I 0.102 ng/ml
--- NOTE | 2025-09-06 19:39 | PTCARENOTE ---
Pt received to ICU bed 3368 from ED. Pt became agitated while turning to assess and bathe. Pt screaming/moaning and thrashing in bed. Unable to control pt. Appeared to be trying to throw himself out of the bed. Staff assist activated. MD call
ed to bedside. Zyprexa and Phenobarbital given per order. Precedex gtt infusing. Restraints applied.
[2025-09-06 20:07] LABS: Venous Blood Gas B.E. -1.7 mmol/L (-4 to +4); Venous Blood Gas O2 Sat % 99.5 %
[2025-09-06] MEDS: HEPARIN 5000 UNITS SC (20:07)
[2025-09-06] MEDS: NOVOLOG FLEXPEN-LOW RESISTANCE 1 UNITS SC (20:08)
[2025-09-06 20:12] LABS: Glucose - Point of Care 184 mg/dl (70-99)
--- NOTE | 2025-09-06 20:37 | W.PN.UPDATE ---
Update Note
Progress Note Update
09/06/25
2034- Troponin trend now 0.102 from 0.096, no changes in EKG, patient currently not hypertensive SBP 100s. Dr. Flaquito Garcia, staff registered nurse updated on troponin trend increase, continue to monitor. CPK levels elevated probably related to
rhabdomyolysis and drug use history.
--- NOTE | 2025-09-06 20:59 | PTCARENOTE ---
Rec'd pt GCS 10, precedex infusing as ordered to maintain clinical endpoint of safety. Afebrile, NSR on monitor. IV lines flushed patent. Additional IV placed as well as labs sent, along with VBG. Will replete mag, level 1.2. Pulses palpable, no
edema. Multiple areas of abrasion noted, bacitracin as ordered. 3L nasal cannula. Lungs coarse and diminished. 99-100% on monitor. NPO status maintained. Abdomen soft/non distended. CC placed for urine. As per ED nurse, patient grossly incontinent
of urine prior to transfer to ICU. Will bladder scan as necessary. Will monitor.
[2025-09-06 21:20] LABS: Blood Urea Nitrogen 16 mg/dl (9-20); Calcium 7.9 mg/dl (8.4-10.2); Carbon Dioxide 25 mmol/L (22-30); Chloride 107 mmol/L (98-107); Estimated Creatinine Clearance > 125 ml/min; Glucose 213 mg/dl (70-99); Potassium 4.1 mmol/L (3.5-5.1); Sodium 136 mmol/L (135-145); eGFR > 60.00
--- NOTE | 2025-09-06 23:03 | PHA.VAN.IN ---
Addendum entered and electronically signed by Amanda Elena RPH 09/07/25 08:54:
Q12H not Q8H
Original Note:
Assessment
- Assessment
Renal Function: Unknown baseline
Maximum Temperature: 99.1
Minimum Temperature: 97.6
Concomitant Antimicrobials: piperacillin tazobactam
AUC Dosing Plan
- Dosing Variables
Dosing Weight (kg): 85.2
Dosing CrCl (ml/min): 125
Vd coefficient (L/kg): 0.7
- Empiric Dosing
Initial / Loading Dose: 2000 mg 09/06 18:35
Maintenance Regimen: 1500 q 8h
Estimated AUC (mcg*h/mL): 490
Estimated Peak (mcg*h/mL): 34.6
Estimated Trough (mcg/ml): 10.5
Estimated Half Life (H): 6.4
- Monitoring
No levels ordered at this time: consider in upcoming days
Pharmacokinetics Vancomycin I
- -
Patient Age: 60
Patient Sex: Male
Vancomycin Day #: 60
Indication: Eye Or Ent Infection
Requesting Provider: DEREK Greer
Pertinent Antimicrobial Allergies:
no known allergies
Height / Weight:
Height 5 ft 8 in
Actual Weight 85.2 kg
- Vital Signs / Lab Results
Temp Pulse Resp BP Pulse Ox
97.6 F 68 17 87/70 98
09/06/25 20:00 09/06/25 21:45 09/06/25 21:45 09/06/25 21:30 09/06/25 21:45
Lab Results - Hematology
09/06/25
10:42
WBC 11.0 H
Lab Results - Chemistry
09/06/25 09/06/25 09/06/25
10:42 20:01 20:36
BUN 17 Cancelled
Creatinine 0.6 L Cancelled
Estimated Creat Clear Cancelled
Albumin 3.7 Cancelled
09/06/25
20:46
BUN 16
Creatinine 0.6 L
Estimated Creat Clear > 125
Albumin
09/06/25
10:45
Lactic Acid 1.4
Lab Results - Urine
09/06/25
10:42
Urine Nitrite (Reflex) Negative
Leukocyte Esterase Rfl Negative
Urine WBC (Reflex) 3-5
Ur Squamous Epith Cells 0-2
Urine Bacteria (Reflex) Moderate A
Microbiology Results
09/06/25 10:42 Influenza Types A & B (CATHIE) - Final
Nasal Swab Negative for Influenza A & B, NAAT
Negative results must be combined with clinical observations
and patient history.
Nucleic Acid Amplification test (NAAT)performed on the
[employer] platform.
[2025-09-07] VITALS (46 sets, daily range): BP systolic 73–128; BP diastolic 53–88
[2025-09-07] MEDS: ZOSYN 50 IV ×5 (00:12→23:55)
[2025-09-07] MEDS: NOVOLOG FLEXPEN-LOW RESISTANCE 2 UNITS SC (00:16)
[2025-09-07 00:27] LABS: Glucose - Point of Care 208 mg/dl (70-99)
[2025-09-07] MEDS: MAGNESIUM SULFATE 50 IV (00:32)
[2025-09-07] MEDS: LANTUS 0.1 UNITS SC (00:32)
--- NOTE | 2025-09-07 00:55 | PTCARENOTE ---
No urine this shift. Bladder scan 560cc. Tolerated straight cath for 500cc clear yellow urine. Titrating Precedex to clinical endpoints. Will monitor.
[2025-09-07] MEDS: LR 1000 IV ×3 (02:04→04:13)
--- NOTE | 2025-09-07 02:12 | PTCARENOTE ---
BP 70s/50s, 1L LR infusing as ordered.
[2025-09-07 02:18] LABS: Troponin I 0.106 ng/ml
[2025-09-07 04:05] LABS: Venous Blood Gas B.E. 0.6 mmol/L (-4 to +4); Venous Blood Gas O2 Sat % 92.2 %
[2025-09-07] MEDS: LEVOPHED 250 IV (04:12)
[2025-09-07 04:13] LABS: Hematocrit 37.4 % (39.0-52.0); Hemoglobin 12.2 g/dL (13.0-18.0); Mean Corp Hgb Conc. 32.6 g/dL (33.0-37.0); Mean Corpuscular Volume 91.2 fL (80.0-94.0); Nucleated Red Blood Cells % 0 % (-); Platelet Count 213 10^3/uL (130-400); Red Cell Dist. Width 12.7 % (11.5-14.5)
[2025-09-07 04:19] LABS: INR 1.35; PT 17.0 Sec (11.4-14.6)
[2025-09-07 04:20] LABS: APTT 32.9 Sec (23.4-35.0)
[2025-09-07 04:25] LABS: ALT (SGPT) 28 U/L (0-50); AST (SGOT) 43 U/L (17-59); Albumin 2.8 g/dl (3.5-5.0); Alkaline Phosphatase 74 U/L (38-126); Blood Urea Nitrogen 20 mg/dl (9-20); Calcium 7.7 mg/dl (8.4-10.2); Carbon Dioxide 25 mmol/L (22-30); Chloride 108 mmol/L (98-107); Estimated Creatinine Clearance 95 ml/min; Glucose 198 mg/dl (70-99); HDL Cholesterol 38 mg/dl; LDL Cholesterol, Calculated 43 mg/dl; Magnesium 2.4 mg/dl (1.6-2.3); Potassium 4.2 mmol/L (3.5-5.1); Sodium 135 mmol/L (135-145); Total Protein 5.5 g/dl (6.3-8.2); Very Low Density Lipoprotein 16 mg/dl (0-30); eGFR > 60.00
--- NOTE | 2025-09-07 05:13 | PTCARENOTE ---
Multiple attempts at fluid boluses for hypotension. BP remained in 70s. Levophed started for SBP goal 90. WIll monitor.
[2025-09-07] MEDS: VANCOCIN 530 MG IV (05:18)
[2025-09-07 06:11] LABS: Glucose - Point of Care 243 mg/dl (70-99)
[2025-09-07] MEDS: VALIUM INJECTION 10 MG IV ×2 (06:12→06:36)
[2025-09-07] MEDS: NSS 1000 IV ×3 (06:25→20:54)
[2025-09-07] MEDS: NOVOLOG FLEXPEN-LOW RESISTANCE 300 UNITS SC (06:25)
[2025-09-07] MEDS: FLEXBUMIN 100 IV (06:25)
--- NOTE | 2025-09-07 06:45 | PTCARENOTE ---
Bladder scan 414cc. Order noted to place caceres catheter. Patient belligerent hitting/uncooperative/moaning out/trying to bite staff. 10mg Valium given IV. Unsuccessful attempt at caceres placement. Pt continues to scream/thrash around and try to hit
staff. 4 point restraints as ordered for safety. Precedex titrated back up. Additional Valium dose given. Once meds take effect, will attempt coude catheter placement. Report given to oncoming shift.
[2025-09-07 06:58] LABS: Troponin I 0.103 ng/ml
--- NOTE | 2025-09-07 07:14 | PTCARENOTE ---
Coude catheter placed without difficulty. Patient aggressive/thrashing/moaning out. Precedex titrated.
--- NOTE | 2025-09-07 07:34 | W.PN.INTV ---
Today's Communication / Plan
Recommendations
Head of bed elevated, aspiration precautions
Wean pressors
Continue benzodiazepine, dexmedetomidine
Remains on Zosyn therapy
Chest x-ray ABG in a.m.
Assessment
-
Assessment: 60-year-old male with a past medical history of hypertension, diabetes, methamphetamine abuse, and hyperlipidemia who presents with being found unresponsive on the floor. 911 called and patient was arousable to pain by to EMS, with
blood sugar 88. 500 cc bolus of fluids were given as his SBP was in the 90s. There appeared to be bags of drugs all over the room. When he arrived here to the ER he was moaning and groaning and covered in fecal matter. Patient remains
unresponsive, unable to interact with me for this HPI. In the ER he was tachycardic to 110, tachypneic to 22, BP 142/100 and he was saturating 97% on room air. Initial labs pertinent for mild leukocytosis to 11, Hb 13.9, magnesium 0.8, CK 7016,
troponin 0.084, proBNP 9 900, urinalysis with +3 ketones and urine toxicology showing amphetamines + methamphetamines. Beta-hydroxybutyrate elevated at 3.22 and COVID-19 antigen was negative. His POCT glucose was low at 67. Blood and urine
cultures collected. CT facial bones showed no soft tissue abscess, CT head showed no acute intracranial abnormality, CXR showed low lung volumes without any focal airspace disease or pulmonary edema, and CT chest/abdomen/pelvis showed cardiomegaly
with possible pulmonary vascular congestion with small bilateral pleural effusions, small right lower lobe consolidation due to pneumonia versus atelectasis with fluid in the nondilated loops of small bowel, unable to exclude ileus/enteritis, with
mild hepatomegaly with suspected diffuse fatty liver and relative diffuse thickening of the wall of the urinary bladder due to either underdistention versus cystitis. Magnesium was given and due to his poor mental status with need for close
monitoring and possible need for intubation for airway protection, he was admitted to the ICU with perioperative tech service consulted for additional management/recommendations.
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
HTN
Hyperlipidemia
Insulin-dependent diabetes w/ neuropathy
Substance abuse, UDS + meth/amphet
Cocaine/heroine/meth history, incarceration
Lumbar back pain
Impression:
#Acute encephalopathy likely due to polysubstance use with intoxication
#Leukocytosis (mild)
#Hypomagnesemia
#Elevated CK due to mild rhabdomyolysis
#Elevated troponin likely due to either demand ischemia or due to rhabdomyolysis
#Elevated proBNP
#Polysubstance abuse with amphetamine/methamphetamine abuse
#DM type II (uncontrolled with HbA1C> 14% on 05/20/2025) c/b hypoglycemia
#Starvation ketosis
Plan/recommendations:
At this time, patient continues to be agitated
Requiring 4 point restraints
Remains on Precedex drip
Also remains on low-dose norepinephrine at 2 mcg
Received Valium and phenobarbital
Despite agitation, no evidence of tachycardia or hypertension or hyperthermia
When patient does awaken, does say few words, difficult to interpret
Moving forward
Continue with supportive care
Precedex drip, as needed anxiolytic, lorazepam
Follow blood sugars
Hemoglobin A1c noted 11.0
Insulin as needed
Continue with norepinephrine, titrate as able
Continue with IV fluids. Follow CK levels, still trending up
Urine output noted, follow echocardiogram pending
EKG sinus tachycardia
Patient is at risk for aspiration, respiratory event
Head of bed elevated
100% saturation on 6 L
ABG in a.m.
Chest x-ray in a.m.
Follow right lower lobe process
Remains on Zosyn therapy
Bacitracin for eyelid swelling
Facial imaging no evidence of significant abnormality
DVT ppx: Enoxaparin
GI prophylaxis not indicated
Reviewed with primary service
Critical care statement: A total of 33 minutes of critical care time was provided for this patient today. This includes management of unstable vital signs, evaluation of the patient at bedside, reviewing the patient's pertinent medical records
including radiographs, microbiology, laboratory evaluations, and discussion with primary team, consultants, pharmacy, nutrition, physical therapy, case management, charge nurse, critical care nursing, and respiratory therapy.
Subjective Dataa
Subjective Data
Date of Service:
Date of Service: September 07, 2025
Subjective:
Unfortunately patient remains critically ill, groaning at times otherwise sedated. Requiring 4-point restraints due to intermittent severe agitation. Marginal blood pressure noted, normal lactate.
Objective Data
Data Reviewed
Vital Signs / I&O / Oxygen:
Vital Signs
Temp Pulse Resp BP Pulse Ox
97.5 F 99 29 105/66 98
09/07/25 07:20 09/07/25 06:30 09/07/25 06:30 09/07/25 06:00 09/07/25 05:45
Intake and Output
09/06/25 09/07/25 09/08/25
06:59 06:59 06:59
Intake Total 5589.0 / 5729.3 140.3 / 140.3
Output Total 550 / 900 350 / 350
Balance 5039.0 / 4829.3 -209.7 / -209.7
SaO2 98
Nasal Cannula flow liters per 6
minute
Physical Exam
General: Other (Intermittently restless, requiring restraints)
HEENT: Normocephalic, Other (Large neck) and Other (Mucosal abrasions)
Cardiovascular: S1-S2, Regular Rhythm, Murmur (n) and Peripheral Edema (n)
Respiratory: Wheeze (n), Crackles (n), Rhonchi (n), Non-Labored Respirations and Other (Difficult exam due to groaning, does not follow commands)
GI: Soft, Non Distended (Obese) and Non Tender
Neurology: Lethargic (Intermittently agitated, moving all extremities)
Skin: Cyanosis (n) and Bruising (Few scattered abrasions)
Labs/Micro/Reports
Lab Data
09/07/25 03:53
09/07/25 03:53
Laboratory Results
09/06/25 09/06/25 09/06/25
18:20 19:27 19:37
PT 17.0 H
INR 1.35
APTT 30.7
pH Cancelled Cancelled Cancelled
pCO2 Cancelled Cancelled Cancelled
pO2 Cancelled Cancelled Cancelled
HCO3 Cancelled Cancelled Cancelled
O2 Delivery Level Cancelled Cancelled Cancelled
09/07/25
03:53
PT 17.0 H
INR 1.35
APTT 32.9
pH
pCO2
pO2
HCO3
O2 Delivery Level
Microbiology
09/06/25 10:42 Nasal Swab Influenza Types A & B (CATHIE) - Final
Negative for Influenza A & B, NAAT
Negative results must be combined with clinical observations
and patient history.
Nucleic Acid Amplification test (NAAT)performed on the
[employer] platform.
--- NOTE | 2025-09-07 07:59 | CON.CAR ---
Addendum entered and electronically signed by Barrett Morrow MD 09/07/25 17:36:
I saw and evaluated the patient, and I provided the substantive portion of the medical decision making.
I reviewed and agree with the note by DEREK Ramirez and it accurately reflects our care.
I personally performed the medical decision making of the this encounter and my assessment and plan is below:
60-year-old man without known cardiac disease. Cardiac risk factors include diabetes mellitus, HTN, and mixed hyperlipidemia. The patient cannot provide medical history or current history because he is sedated. He was brought to the hospital
unresponsive with suspected drug overdose. Cardiology was consulted because of abnormal laboratory studies including a minimally elevated troponin and a significantly elevated pBNP. A portable x-ray suggested cardiac enlargement. A CT scan suggested
cardiomegaly with possible slight increased pulmonary vascularity concerning for heart failure. Tiny bilateral pleural effusions were noted. I reviewed those images. Exam shows him to be comfortable supine without obvious crackles. No peripheral
edema. EKG shows low lung volumes and left axis deviation. Septal infarct is suspected with Q waves in V1 and V2. No acute ischemic EKG changes.
His echo shows severe LV dysfunction without significant valve disease. The RV looked fine.
Cardiomyopathy, etiology uncertain.
Acute HFrEF. This can easily be exacerbated by the IV fluids needed to treat his elevated CPK
High risk situation.
Polysubstance abuse
Altered mental status
Diabetes
Will provide IV diuresis
During the hospital stay we will add GDMT
Will need to decide if we will progress to coronary angiography or if he will be treated medically for HFrEF with outpatient stress testing
Original Note:
Consultation
Consultation Request
Date/Time Consultation Requested: 09/06/2025 14:35
Date/Time Consultation Performed: 09/07/2025 08:00
Requesting Provider: DEREK Hernandez
Performing Provider: DEREK Ramirez for Dr. Morrow
Reason for Consultation: Abnormal troponin, Concern for heart failure
Medical History
-
Chief Complaint: Unresponsiveness
History of Present Illness:
Chencho Sanchez is a 60-year-old male with type 2 diabetes mellitus requiring insulin, hypertension, and hypercholesterolemia who presented to the ER last night via EMS as he was found unresponsive by family. He arrived covered in fecal matter
moaning. Per his family, the presence of what appeared to be methamphetamines were in the room. Cardiology was consulted for an abnormal troponin and a concern for heart failure. The patient is moaning with unintelligible speech and is unable to
contribute to this HPI.
Past Medical History
Past Medical History: HTN, Hypercholesterolemia and IDDM
Social History
Tobacco: Other (Unknown)
Alcohol: Other (Unknown)
Drug: Other (Unknown, suspected methamphetamines)
Family History
Family History: Unable to Obtain
Allergies / Home Medications
Allergy/AdvReac Type Severity Reaction Status Date / Time
No Known Allergies Allergy Verified 08/14/23 09:51
�Medication �Instructions �Recorded �Confirmed �Type
insulin aspart U-100 100 unit/mL 10 unit (0.1 mL) SC AC #15 mL 05/24/24 09/06/25 Rx
(3 mL) subcutaneous pen (Novolog
FlexPen U-100 Insulin aspart)
atorvastatin 40 mg tablet (Lipitor) 40 mg PO DAILY 09/06/25 09/06/25 History
insulin glargine 100 unit/mL 35 unit SC QPM 09/06/25 09/06/25 History
subcutaneous solution (Lantus
U-100 Insulin)
lisinopril 20 mg tablet 20 mg PO DAILY 09/06/25 09/06/25 History
Review of Systems
-
Unable to obtain full review of systems at this time due to: Patient Non Verbal
Physical Exam
Vital Signs
Temp Pulse Resp BP Pulse Ox
97.5 F 99 29 105/66 98
09/07/25 07:20 09/07/25 06:30 09/07/25 06:30 09/07/25 06:00 09/07/25 05:45
Lab Results
09/07/25 03:53
09/07/25 03:53
Troponin I 0.103 ng/ml H* 09/07/25 06:00
Tvt-M-Mbgbajbkthe Pept 9900 pg/ml 09/06/25 10:42
Physical Exam
General: Well Developed and No Apparent Distress
HEENT: Anicteric and Other (Swollen bilateral orbits)
Respiratory: Non Labored Respirations
Cardiac: S1/S2 and Regular Rhythm
Breast: Deferred by me
GI: Soft, Non Tender, Non Distended and Normal Bowel Sounds
Rectal: Deferred by Provider
Genito-urinary: No Costovertebral Tender
Musculoskeletal: No Clubbing and No Cyanosis
Skin: Warm, Dry and Other (Multiple abrasions)
Neuro: Other (Moaning, moving all extremities)
Hematologic/Lymphatic: No Lymphadenopathy
Psych: Agitated (Mild)
Impression / Plan
-
I/P: 60M with HTN, HLD, and T2DM on insulin presented unresponsive from home. He presented covered in feces. There was presence of drugs in the room where he was found, suspected methamphetamines.
Change in mental status
- Likely in the setting of methamphetamine use
- On Precedex
Rhabdomyolysis
- CK 716 -> 940, per primary
Abnormal troponin
- Troponin 0.084, 0.096, 0.102, 0.106, 0.103
- This is likely in the setting of rhabdomyolysis
- EKG without acute ischemia
Abnormal proBNP
- proBNP 9900, cannot rule heart failure in or out with just this data but suspicious giving normal proBNP in the past, echocardiogram today
- He not hypoxic
Hypertension
- Hypotension on arrival, lisinopril on hold
Type 2 diabetes mellitus, requiring insulin
- History of being uncontrolled as he had an A1c of 15.4% when he was here with DKA in May
Hypercholesterolemia
- Atorvastatin 40 mg on hold in the setting of rhabdomyolysis
- LDL below goal
Data Reviewed
-
EKG: Report Reviewed by me (Sinus tachycardia, rate 109)
Radiology: Report Reviewed by me (CXR: Low lung volumes without focal airspace disease or overt pulmonary edema.)
Labs: Labs Reviewed by me
Old Records: Reviewed
--- NOTE | 2025-09-07 08:43 | PHA.VAN.FU ---
Vancomycin Assessment / Plan
- Assessment
Renal Function: Stable
WBC's are: Trending Down
In the past 24 hrs, patient has been: Afebrile
Concomitant Antimicrobials: piperacillin/tazobactam
- Dosing Plan
Continue: Vanc 1500mg Q12H
- Monitoring Plan
No level(s) ordered at this time: consider levels in next few days
- Follow Up
Pharmacy will continue to follow.
Vancomycin Follow UP
- -
Patient Age: 60
Patient Sex: Male
Vancomycin Day #: 61
Indication: Eye Or Ent Infection
Requesting Provider: DEREK Greer
Pertinent Antimicrobial Allergies:
NKDA
Height / Weight:
Height 5 ft 8 in
Actual Weight 85.2 kg
Pertinent Past Medical History: DM
- Vital Signs / Lab Results
Temp Pulse Resp BP Pulse Ox
97.5 F 99 29 105/66 98
09/07/25 07:20 09/07/25 06:30 09/07/25 06:30 09/07/25 06:00 09/07/25 05:45
Lab Results - Hematology
09/06/25 09/07/25
10:42 03:53
WBC 11.0 H 7.8
Lab Results - Chemistry
09/06/25 09/06/25 09/06/25
10:42 20:01 20:36
BUN 17 Cancelled
Creatinine 0.6 L Cancelled
Estimated Creat Clear Cancelled
Albumin 3.7 Cancelled
09/06/25 09/07/25
20:46 03:53
BUN 16 20
Creatinine 0.6 L 0.8
Estimated Creat Clear > 125 95
Albumin 2.8 L
09/06/25
10:45
Lactic Acid 1.4
Lab Results - Urine
09/06/25
10:42
Urine Nitrite (Reflex) Negative
Leukocyte Esterase Rfl Negative
Ur Squamous Epith Cells 0-2
Microbiology Results
09/06/25 10:42 Influenza Types A & B (CATHIE) - Final
Nasal Swab Negative for Influenza A & B, NAAT
Negative results must be combined with clinical observations
and patient history.
Nucleic Acid Amplification test (NAAT)performed on the
[employer] platform.
[2025-09-07] MEDS: ERYTHROMYCIN 0.5% OPHTHALMIC OINTMENT 1 APPLIC OPHTH (08:51)
[2025-09-07] MEDS: BACITRACIN OINTMENT 1 APPLIC TOPICAL ×3 (08:51→20:57)
[2025-09-07] MEDS: PRECEDEX 100 IV ×3 (08:52→17:04)
[2025-09-07 08:57] LABS: Glycohemoglobin (HgbA1c) 11.0 % (4.0-5.9)
--- NOTE | 2025-09-07 09:20 | W.PN.HOSP.TC ---
Today's Communication/Plan
-
Start on benzos. Consult neurology.
Wean Precedex as able.
Discontinue vancomycin. Continue with Zosyn.
Follow Accu-Cheks and adjust insulin as needed. Consult diabetic nurse practitioner.
Continue with IV fluids.
Assessment / Plan
Assessment / Plan
Unresponsive episode-patient was found in fecal matter and he has a tongue bite. Clinical concern so far based on the data points are methamphetamine probably overdose. CT of the head is negative for any acute findings. Moving all 4 limbs without
any motor weakness.
High suspicion that he might have had a seizure.
I would use benzos for his agitation and restlessness
Consults neurology. Continue to observe in ICU.
Restlessness/agitation-secondary to TME-suspect secondary to drug use- prefer to use benzos. On Precedex as well for agitation.
Drug abuse-patient positive for methamphetamine/amphetamine.-Case management consult for B care referral
Abnormal troponins-EKG shows no evidence of acute ischemic changes. Suspect nonischemic myocardial injury. Cardiology consulted.
Right lobe consolidation-with unresponsiveness concern for aspiration pneumonitis/pneumonia-continue with empirical Zosyn. Do not see indication for IV vancomycin. Blood cultures are pending.
Dilated small bowel loops on CT-abdomen is nondistended and soft. Limited exam without oral contrast. Follow for any diarrhea.
Urinary bladder thickening on the CT-UA negative for infection probably secondary to underdistention
Elevated CPK-possibly secondary to rhabdo versus seizures consider evaluation
Diabetes mellitus type 2-continue the sliding scale. Continue Lantus at a lower dose. Uncontrolled hyperglycemia with hemoglobin A1c of 11. Elevated beta hydroxybutyrate acid noted but no acidosis or elevated anion gap. Suspect secondary to
fasting ketoacidosis.. Consult diabetic nurse practitioner for insulin management
Hyperlipidemia-hold statins due to rhabdo.
Discussed with GUN PROFILER
Total Critical Care Time__35___ minutes. I was immediately available to the patient and staff. I personally examined, reviewed labs, diagnostic images/reports, interpretations, treatment plans, discussed patient care with other providers and
family or caregivers (if patient is unable to make decisions), entered orders as appropriate and documented the medical record.
Anticipated Discharge: > 48 hours
Subjective/Interval History
-
Date of Service: September 07, 2025
Patient is restless and agitated. He is on Precedex drip.
He is in restraints.
Nurse was trying to clean his mouth which has old blood and he says' dont do that'.
He does not follow commands.
Objective Data
-
Labs:
Laboratory Results
09/06/25 09/07/25
20:46 03:53
WBC 7.8
Hgb 12.2 L
Hct 37.4 L
Plt Count 213
PT 17.0 H
INR 1.35
APTT 32.9
Sodium 136 135
Potassium 4.1 4.2
Chloride 107 108 H
Carbon Dioxide 25 25
BUN 16 20
Creatinine 0.6 L 0.8
Glucose 213 H 198 H
Calcium 7.9 L 7.7 L
Total Bilirubin 2.8 H
AST 43
ALT 28
Alkaline Phosphatase 74
Vital Signs:
Vital Signs
Temp Pulse Resp BP Pulse Ox
97.5 F 99 29 105/66 97
09/07/25 07:20 09/07/25 06:30 09/07/25 06:30 09/07/25 06:00 09/07/25 08:00
I&O
09/06/25 09/07/25 09/08/25
06:59 06:59 06:59
Intake Total 5589.0 / 5729.3 309.3 / 309.3
Output Total 550 / 900 430 / 430
Balance 5039.0 / 4829.3 -120.7 / -120.7
Review of Systems
-
Unable to obtain full review of systems at this time due to: Other (Due to his current mental status)
Physical Exam
-
General: Negative Comfortable
HEENT: Other (Tongue bite to the left of midline and midline)
Respiratory: Clear to Auscultation (Anteriorly)
Cardiac: Regular Rhythm, S1/S2 and Tachycardic
GI: Soft and Nondistended
Musculoskeletal: No Edema
Neuro: Other (Agitated and restless); Negative Awake, Alert, Oriented or Facial Droop
Psych: Agitated
Data Reviewed
-
CT Scan: Report Reviewed by me (CT of the head, CT of the abdomen pelvis and chest)
Labs: Labs Reviewed by me
--- NOTE | 2025-09-07 09:27 | PTCARENOTE ---
Received pt non verbal,agitated,thrashing in bed,moaning.Precedex titrated for RASS.4 point restraints maintained for patient safety.BL mitts applied as pt attempting to remove Keane catheter.At 0800 pt was occasionally speaking in sentences stating
'leave me alone'.Pt occasionally maintains eye contact,does not follow commands at this time.SR noted.IVF,Precedex and Levophed gtts infusing.Coarse breath sounds throughout.O2 4l NC.POX 97%NPO.No BM.Keane inserted in tandem at change of
shift.Draining tyler urine.Multipl scattered abrasions on face and all limbs.Left tongue laceration noted.Plan of care discussed.No family presence at this time.
[2025-09-07] MEDS: ATIVAN 1 MG IV ×2 (10:11→20:53)
--- NOTE | 2025-09-07 10:19 | CON.NEURO4 ---
Addendum entered and electronically signed by Issa Perdomo MD 09/07/25 19:34:
I have seen and examined the patient today along with the nurse practitioner Heather Soriano. I agree with the nurse practitioner Heather Soriano's assessment and management plan. Given below is my addendum.
The patient is a 60 years old male who presented to the hospital on 09/06/2025 with report of unresponsiveness. The patient's family found him on the floor unresponsive to painful stimuli and covered in feces.
The family found bags of methamphetamine on the floor and were worried about overdose. The patient also had a tongue bite. There was a concern about a seizure that the patient might have had. The toxicology screen was positive for
methamphetamine/amphetamine.
On neurologic examination the patient was very combative and had to be restrained. He was also on the Precedex drip. The patient is unable to follow verbal commands. The patient has eyes open and he can make an eye contact. The patient appears
to move all extremities spontaneously with full strength.
The patient's mother was present at the bedside but she did not know much about the history regarding patient's current condition.
The patient is on Zosyn.
The patient likely has altered mental status secondary to seizure and substance withdrawal, and is it is less likely that he has had any hypoxic brain injury.
Seizure precautions including no driving for 6 months after discharge.
Will hold any antiepileptic medication at this time.
The plan is to get MRI of the brain with and without contrast when the patient is able to cooperate and also to get an EEG when the patient is able to cooperate.
Will follow.
Original Note:
Consultation - Neurology 4
-
CONSULTING PHYSICIAN: Issa Perdomo MD
REFERRING PHYSICIAN: Hospitalists/Dr. Summers
DICTATED BY: DEREK Randolph
DATE/TIME OF REQUEST: 09/07/25
DATE/TIME OF CONSULTATION: 09/07/25
Reason for Consultation: Altered mental status
History of Present Illness:
This is a 60-year-old male who has presented to the hospital on 09/06/25 with report of unresponsiveness. Patient's family reports that they found him on the floor next to his bed only responsive to painful stimuli and covered in feces. They found
bags of methamphetamines on the floor and were worried about overdose. CT head was obtained on arrival and is negative for any acute abnormalities. He has scattered abrasions and a tongue laceration. Patient has been agitated, restless and failed to
return to baseline, prompting Neurology evaluation. Patient is currently unable to participate in conversation.
Past Medical History: HTN, HLD, DM requiring insulin
Surgical History: Unknown.
Family History: Reviewed and noncontributory.
Social History: Suspected methamphetamines.
Allergies: No known allergies.
Home Medications: See below.
Review of Symptoms:
Per the HPI. I am unable to obtain a complete review of systems�because of patient's inability to provide history.
Physical Exam:
The patient is agitated/restless, afebrile, abdomen is nondistended, breathing is unlabored, skin with scattered abrasions, +2 tongue edema, +tongue laceration.
Neurologic Examination:
The patient is agitated and thrashing. He is unable to follow commands and answer questions appropriately. Speech is severely dysarthric and nonsensical. On cranial nerve assessment, pupils are 3 mm bilateral, round and reactive to light and
accommodation. ZEUS visual freire and EOMS. There is no apparent facial asymmetry. ZEUS hearing. Tongue is swollen with a laceration.Moves all extremities spontaneously full strength. ZEUS drift. No involuntary movement noted. ZEUS sensation, double
simultaneous, and coordination.
Lab Results: See below.
Neuro Imaging:
1. CT Head 09/06/25: No acute intracranial abnormality. Chronic paranasal sinus inflammatory changes.
Differentials for the patient's presentation include:
1. Altered mental status; uncertain etiology, possibilities include seizure, substance withdrawal, less likely hypoxic brain injury.
Patient has the following risk factors for their symptoms: Drug use, tongue laceration
Recommendations:
-Routine EEG pending.
-Consideration for MRI brain imaging once patient is cooperative.
Discussed patient care with: Dr. Perdomo, patient's mother
Vital Signs and Labs
-
Vital Signs and Labs:
Vital Signs
Temp Pulse Resp BP Pulse Ox
98.8 F 75 24 112/83 78
09/07/25 11:08 09/07/25 12:15 09/07/25 12:15 09/07/25 12:00 09/07/25 11:15
Lab Results
09/07/25 03:53
09/07/25 03:53
PT 17.0 Sec (11.4-14.6) H 09/07/25 03:53
INR 1.35 09/07/25 03:53
APTT 32.9 Sec (23.4-35.0) 09/07/25 03:53
Sodium 135 mmol/L (135-145) 09/07/25 03:53
Potassium 4.2 mmol/L (3.5-5.1) 09/07/25 03:53
BUN 20 mg/dl (9-20) 09/07/25 03:53
Glucose 198 mg/dl (70-99) H 09/07/25 03:53
Calcium 7.7 mg/dl (8.4-10.2) L 09/07/25 03:53
Phosphorus 3.5 mg/dl (2.5-4.5) 09/06/25 18:20
Mwi-L-Lybzdbklisw Pept 9900 pg/ml 09/06/25 10:42
LDL Cholesterol, Calc 43 mg/dl 09/07/25 03:53
Ur Buprenorphine Negative (Negative) 09/06/25 10:42
Medications
-
Active Medications
Generic Name Dose Route Start Last Admin
Trade Name Freq PRN Reason Stop Dose Admin
Acetaminophen 650 mg 09/06/25 17:02
Acetaminophen 650 Mg Rectal Suppository RECTAL 10/04/25 17:01
Q4HPRN PRN
mild pain/FLORES/temp> 100.4F
Bacitracin 0 applic 09/06/25 17:02 09/07/25 08:51
Bacitracin Zinc Ointment (Topical) TOPICAL 1 applic
TID ROSIE Administration
Dextrose 12.5 grams 09/06/25 17:02
Dextrose 50% (0.5 Grams/Ml) 50 Ml Syringe IV 10/04/25 17:01
[id number] PRN
hypoglycemia
Protocol
Enoxaparin Sodium 40 mg 09/07/25 18:00
Enoxaparin Sodium 40 Mg/0.4 Ml Syringe SC 10/05/25 17:59
QPM ROSIE
Glucagon 1 mg 09/06/25 17:02
Glucagon 1 Mg Vial IM 10/04/25 17:01
PRN PRN
hypoglycemia
Protocol
Dexmedetomidine HCl 400 mcg in 100 mls @ 0 mls/hr 09/06/25 17:00 09/07/25 08:52
Precedex IV 100 mls
PER PROTOCOL ROSIE Administration
Protocol
Per Protocol
Piperacillin Sod/Tazobactam Sod 3.375 gram in 50 mls @ 100 mls/hr 09/06/25 18:00 09/07/25 12:51
Zosyn IV 50 mls
Q6H ROSIE Administration
Norepinephrine Bitartrate 4 mg in 250 mls @ 0 mls/hr 09/07/25 04:00 09/07/25 04:12
Levophed IV 250 mls
PER PROTOCOL ROSIE Administration
Protocol
Per Protocol
Sodium Chloride 1,000 mls @ 125 mls/hr 09/07/25 09:45 09/07/25 11:35
Nss IV 1,000 mls
.Q8H ROSIE Administration
Insulin Glargine 15 units/ 0.15 mls @ 0 mls/hr 09/07/25 22:00
Device SC 10/05/25 21:59
HS ROSIE
As Directed
Insulin Aspart 0 units 09/07/25 12:00 09/07/25 11:40
Insulin Aspart Moderate Resistance 300 Units/3 Ml Pen.Injctr SC 10/05/25 11:59 Not Given
Q6 ROSIE
Protocol
Lorazepam 1 mg 09/07/25 09:11 09/07/25 10:11
Lorazepam 2 Mg/Ml Vial IV 10/05/25 09:10 1 mg
Q4HPRN PRN Administration
agitation
Polymyxin/Trimethoprim Sulfate 1 drop 09/07/25 13:00
Polymyxin B/Trimethoprim (Ophthalmic Solution) 10 Ml Bottle BOTH EYES 10/05/25 12:59
QID ROSIE
Sodium Chloride 0 flush 09/06/25 16:00
Sodium Chloride 0.9% (Flush) Syringe IV 10/04/25 15:59
PER PROTOCOL ROSIE
Sodium Chloride 0.5 ml 09/07/25 10:08
Nss (Pf) 10 Ml Vial For Ativan 1 Mg Dose IV 10/05/25 10:07
Q4HPRN PRN
IV LORAZEPAM DILUTION
Home Medications
�Medication �Instructions �Recorded
insulin aspart U-100 100 unit/mL 10 unit (0.1 mL) SC AC #15 mL 05/24/24
(3 mL) subcutaneous pen (Novolog
FlexPen U-100 Insulin aspart)
atorvastatin 40 mg tablet (Lipitor) 40 mg PO DAILY High Cholesterol 09/06/25
insulin glargine 100 unit/mL 35 unit SC QPM Diabetes 09/06/25
subcutaneous solution (Lantus
U-100 Insulin)
lisinopril 20 mg tablet 20 mg PO DAILY Blood Pressure 09/06/25
--- NOTE | 2025-09-07 10:51 | PN.DE.MGMTRT ---
Addendum entered and electronically signed by DEREK Paniagua 09/07/25 15:34:
1200 PM Glucose is 130. Will d/c NPH order.
Cont Lantus 15 units @ HS and moderate corrective Q6 hrs.
Original Note:
Insulin Management
- -
: Diabetes Management Consult
60 year old male who was found Unresponsive with tongue biting and in fecal matter. Clinical concern so far based on the data points are methamphetamine probably overdose. High suspicion that he might have had a seizure. CT of the head is negative
for any acute findings.
Pt is agitated, restless and thrashing, not following commands, not answering questions and unable to participate in conversation. No family at bedside.
Tongue is swollen w/a laceration. All information obtained from chart and Nurse. Chart indicates he was taking Lantus 35 units @ HS and NovoLog 10 units AC.
A1C is 11%, Cr 0.8, eGFR >60. Glucose on admission was 81 venous, trended up to 213@ HS and 198@ 3AM. Fasting 243 POC.
Current Diabetes regimen is Lantus 10 units and low corrective with meals. Dr Serrano has increased Lantus dose to 17 units.
Will reduce Lantus dose to 15 units and change to moderate corrective Q6 hrs while NPO.
Will cont to follow. Discussed with Nurse
Diabetes History
- -
Type of Diabetes: 2 requiring insulin
Pre-Admission Diabetes Regimen
09/06/25 09/06/25 09/06/25
10:42 20:01 20:46
Creatinine 0.6 L Cancelled 0.6 L
09/07/25
03:53
Creatinine 0.8
Lab Results
Hemoglobin A1c 11.0 % (4.0-5.9) H 09/07/25 03:53
Insulin Pump Settings
IP Diabetes Regimen
09/06/25 09/06/25 09/06/25
10:42 11:12 12:07
Glucose 81
POC Glucose 67 L 95
09/06/25 09/06/25 09/06/25
13:06 18:26 20:01
Glucose Cancelled
POC Glucose 193 H 233 H 184 H
09/06/25 09/07/25 09/07/25
20:46 00:16 03:53
Glucose 213 H 198 H
POC Glucose 208 H
09/07/25
05:59
Glucose
POC Glucose 243 H
Patient Education
[2025-09-07 11:51] LABS: Glucose - Point of Care 130 mg/dl (70-99)
--- NOTE | 2025-09-07 12:18 | PTCARENOTE ---
Pt assessed.Precedex increased as per Neurology MD.No change in assessment noted.Frequent agitation with pt moving in bed.Pt will occasionally speak.Safe environment maintained.Pt's Mom at bedside.Plan of care discussed.
--- NOTE | 2025-09-07 12:29 | CM ---
Addendum entered by Sola Brown 09/07/25 14:59:
4 point restraints, aspiration precautions, wean pressors/Precedex, IV/Zosyn. Awaiting return call from mother for IA.
Original Note:
Patient unable to participate in initial assessment. Called and left message for patient's mother to call CM. Awaiting call back.
--- NOTE | 2025-09-07 16:00 | PTCARENOTE ---
Pt assessed.No change in assessment noted.
--- NOTE | 2025-09-07 16:17 | EEG.RPT ---
Electroencephalogram Report
Recording
Date of EE09/07/25
Type of EEG: Routine
Length of EEG recordin minutes
Done with Video Recording: Yes
Patient Status: Inpatient
Recording Conditions: Awake and Drowsy
Hyperventilation Performed: No
Photic Stimulation Performed: Yes
Report
LESS THAN 1 HOUR EEG REPORT
LESS THAN 1 HOUR EEG INTERPRETATION:
Moderately abnormal EEG for age in wakefulness through drowsiness due to triphasic waves and diffuse bihemispheric slowing
CLINICAL CORRELATION:
This study was suggestive of a generalizing diffuse cortical dysfunction without focal abnormality which may be seen with a metabolic abnormality. No seizures were recorded.
Clinical correlation is advised.
METHODS:
A 21 channel digitized electroencephalogram (EEG) was performed in the ICU. The 10/20 international system of electrode placement was used with ECG and lateral/vertical eye movements recorded. Video was recorded. The FetchBack quantitative review
system was utilized.
QUALITY OF STUDY:
Fair due to movement artifact
ELECTROENCEPHALOGRAPHER IMPRESSION(S):
Background
Amplitude: Unremarkable
Anterior-Posterior Organization: Fair
Maximum: Theta, usually delta
Asymmetry: None
Sleep: Drowsiness present
Photic Stimulation: Failed to activate the record.
ECG Normal sinus rhythm
[2025-09-07] MEDS: POLYTRIM OPHTHALMIC SOLUTION 1 DROP BOTH EYES ×3 (17:05→20:58)
[2025-09-07] MEDS: LOVENOX 40 MG SC (17:06)
[2025-09-07] MEDS: LASIX 20 MG IV (17:22)
[2025-09-07 17:59] LABS: Glucose - Point of Care 101 mg/dl (70-99)
--- NOTE | 2025-09-07 18:27 | PTCARENOTE ---
1800- RASS -1. Precedex gtt weaned as ordered.
[2025-09-07] MEDS: NSS (PRESERVATIVE FREE) 0.5 ML IV (20:53)
[2025-09-07] MEDS: LANTUS 0.15 UNITS SC (22:21)
[2025-09-08] VITALS (32 sets, daily range): BP systolic 81–155; BP diastolic 64–95
[2025-09-08 00:04] LABS: Glucose - Point of Care 102 mg/dl (70-99)
--- NOTE | 2025-09-08 00:05 | PTCARENOTE ---
GCS remains 10, no words articulated, intermittent moaning/groaning. Localizing to pain, no commands. Pupils sluggish 3. VERGARA 5/5, 4 point restraints and mitts along with 4 siderails up for safety reasons. When providing care, patient becomes
agitated/restless/pulling at anything he can get his hands on. Attempts to reorient unsuccessful as patient continues to moan out and pull at clothing. Precedex titrated to clinical endpoints. Ativan PRN as needed Facial swelling has decreased, able
to open eyes, drops as ordered. Afebrile. NSR on monitor. Levophed off since 1230 on previous shift. Q6h accu checks, no insulin required. Nasal cannula O2 down to 2L, 97-98%. Lungs coarse rhonchi, nonproductive cough noted. Npo, no gi access.
Abdomen soft/nondistended. 14F coude catheter for critical I&O. Bacitracin applied to abrasions. Will monitor.
[2025-09-08] MEDS: PRECEDEX 100 IV ×2 (00:48→07:06)
[2025-09-08] MEDS: NSS 1000 IV (02:20)
[2025-09-08 03:41] LABS: Hematocrit 42.9 % (39.0-52.0); Hemoglobin 13.3 g/dL (13.0-18.0); Mean Corp Hgb Conc. 31.0 g/dL (33.0-37.0); Mean Corpuscular Volume 93.9 fL (80.0-94.0); Platelet Count 185 10^3/uL (130-400); Red Cell Dist. Width 13.0 % (11.5-14.5)
[2025-09-08 04:06] LABS: ALT (SGPT) 420 U/L (0-50); Albumin 3.1 g/dl (3.5-5.0); Alkaline Phosphatase 83 U/L (38-126); Blood Urea Nitrogen 27 mg/dl (9-20); Calcium 7.4 mg/dl (8.4-10.2); Carbon Dioxide 23 mmol/L (22-30); Chloride 112 mmol/L (98-107); Estimated Creatinine Clearance 76 ml/min; Glucose 102 mg/dl (70-99); Potassium 4.1 mmol/L (3.5-5.1); Sodium 144 mmol/L (135-145); Total Protein 5.8 g/dl (6.3-8.2); eGFR > 60.00
--- NOTE | 2025-09-08 04:16 | PTCARENOTE ---
CHG provided. Labs sent and pending. No change in previous assessment, Will monitor and follow up with labs.
[2025-09-08 04:22] LABS: AST (SGOT) 905 U/L (17-59); Magnesium 1.9 mg/dl (1.6-2.3)
[2025-09-08] MEDS: ZOSYN 50 IV (05:15)
[2025-09-08 05:31] LABS: Glucose - Point of Care 85 mg/dl (70-99)
--- NOTE | 2025-09-08 07:57 | W.PN.INTV ---
Today's Communication / Plan
Recommendations
Discontinue antibiotics
IV fluids held
Wean Precedex
Ativan as needed
Follow-up creatinine, renal function
Follow liver function
Norepinephrine to maintain maps greater than 65
Assessment
-
Assessment: 60-year-old male with a past medical history of hypertension, diabetes, methamphetamine abuse, and hyperlipidemia who presents with being found unresponsive on the floor. 911 called and patient was arousable to pain by to EMS, with
blood sugar 88. 500 cc bolus of fluids were given as his SBP was in the 90s. There appeared to be bags of drugs all over the room. When he arrived here to the ER he was moaning and groaning and covered in fecal matter. Patient remains
unresponsive, unable to interact with me for this HPI. In the ER he was tachycardic to 110, tachypneic to 22, BP 142/100 and he was saturating 97% on room air. Initial labs pertinent for mild leukocytosis to 11, Hb 13.9, magnesium 0.8, CK 7016,
troponin 0.084, proBNP 9 900, urinalysis with +3 ketones and urine toxicology showing amphetamines + methamphetamines. Beta-hydroxybutyrate elevated at 3.22 and COVID-19 antigen was negative. His POCT glucose was low at 67. Blood and urine
cultures collected. CT facial bones showed no soft tissue abscess, CT head showed no acute intracranial abnormality, CXR showed low lung volumes without any focal airspace disease or pulmonary edema, and CT chest/abdomen/pelvis showed cardiomegaly
with possible pulmonary vascular congestion with small bilateral pleural effusions, small right lower lobe consolidation due to pneumonia versus atelectasis with fluid in the nondilated loops of small bowel, unable to exclude ileus/enteritis, with
mild hepatomegaly with suspected diffuse fatty liver and relative diffuse thickening of the wall of the urinary bladder due to either underdistention versus cystitis. Magnesium was given and due to his poor mental status with need for close
monitoring and possible need for intubation for airway protection, he was admitted to the ICU with test boring crew chief service consulted for additional management/recommendations.
Conditions present PROGRAM MANAGEMENT INTERN:
HTN
Hyperlipidemia
Insulin-dependent diabetes w/ neuropathy
Substance abuse, UDS + meth/amphet
Cocaine/heroine/meth history, incarceration
Lumbar back pain
Impression:
#Acute encephalopathy likely due to polysubstance use with intoxication
#Leukocytosis (mild)
#Hypomagnesemia
#Elevated CK due to mild rhabdomyolysis
#Elevated troponin likely due to either demand ischemia or due to rhabdomyolysis
#Elevated proBNP
#Polysubstance abuse with amphetamine/methamphetamine abuse
#DM type II (uncontrolled with HbA1C> 14% on 05/20/2025) c/b hypoglycemia
#Starvation ketosis
Plan/recommendations:
At this time, patient remains critically ill but appears to be improving
Increasing creatinine noted to 1.0, increased liver function noted
Oxygen requirement noted, requiring 4 L
Chest x-ray per my review with questionable heart failure versus expiratory film
Weight increased 5 kg since admission
Echocardiogram EF 27%
Remains on Precedex drip
Also remains on low-dose norepinephrine at 2 mcg, on and off
Received Valium and phenobarbital and 1 dose of Ativan,
Moving forward
Continue with supportive care
mental status is improving, patient becoming more alert and following commands, More appropriate
Wean Precedex
Lorazepam as needed
Creatinine bump noted to 1.0
Urine output adequate
Maintain maps greater than 65. Norepinephrine as required
Follow blood sugars
Hemoglobin A1c noted 11.0
Insulin as needed, blood sugar improved this morning 102
Acute transaminitis noted
Likely combination of shock liver, possible volume overload
Avoid hepatotoxic medications
IV fluids held
Patient received 1 dose of Lasix yesterday p.m.
Echocardiogram with EF 27%
Cardiology following
Follow liver function
Patient is at risk for aspiration, respiratory event
Head of bed elevated
100% saturation on 6 L, down to 4 L
Chest x-ray with questionable heart failure versus expiratory film
Follow clinically
Discontinue antibiotics, no clear indication, no evidence of acute infection
MRSA screen positive
Bacitracin for eyelid swelling, improved
Facial imaging no evidence of significant abnormality
DVT ppx: Enoxaparin
GI prophylaxis not indicated
Reviewed with primary service, pharmacy, critical care nursing, respiratory care
Critical care statement: A total of 32 minutes of critical care time was provided for this patient today. This includes management of unstable vital signs, evaluation of the patient at bedside, reviewing the patient's pertinent medical records
including radiographs, microbiology, laboratory evaluations, and discussion with primary team, consultants, pharmacy, nutrition, physical therapy, case management, charge nurse, critical care nursing, and respiratory therapy.
Subjective Dataa
Subjective Data
Date of Service:
Date of Service: September 08, 2025
Subjective:
Overall, patient remains critically ill but may be somewhat improved from a mental status standpoint. Marginal blood pressure noted, elevated liver function noted. Creatinine also bumped up to 1.0. Oxygen requirement noted, requiring 4 L
Objective Data
Data Reviewed
Vital Signs / I&O / Oxygen:
Vital Signs
Temp Pulse Resp BP Pulse Ox
98.9 F 58 24 87/70 97
09/08/25 04:00 09/08/25 07:30 09/08/25 07:30 09/08/25 07:30 09/08/25 07:30
Intake and Output
09/07/25 09/08/25 09/09/25
06:59 06:59 06:59
Intake Total 5589.0 / 5729.3 3402.6 / 3419.6
Output Total 550 / 900 1720 / 1720
Balance 5039.0 / 4829.3 1682.6 / 1699.6
SaO2 97
Nasal Cannula flow liters per 4
minute
Physical Exam
General: Other (Intermittently restless, requiring restraints)
HEENT: Normocephalic, Other (Large neck) and Other (Mucosal abrasions, tongue abrasion)
Cardiovascular: S1-S2, Regular Rhythm, Murmur (n) and Peripheral Edema (n)
Respiratory: Wheeze (n), Crackles (n), Rhonchi (n) and Non-Labored Respirations
GI: Soft, Non Distended (Obese) and Non Tender
Neurology: Awake, Alert and No Motor Deficits (Moving all extremities, pressing the call button)
Skin: Cyanosis (n) and Bruising (Few scattered abrasions)
Labs/Micro/Reports
Lab Data
09/08/25 03:25
09/08/25 03:25
Microbiology
09/06/25 11:40 Blood/Venous Blood Culture - Preliminary
No Growth in 24 hours- Final report to follow
09/06/25 10:45 Blood/Venous Blood Culture - Preliminary
No Growth in 24 hours- Final report to follow
09/06/25 10:42 Urine Urine Culture - Final
NO GROWTH
09/06/25 10:42 Nasal Swab Influenza Types A & B (CATHIE) - Final
Negative for Influenza A & B, NAAT
Negative results must be combined with clinical observations
and patient history.
Nucleic Acid Amplification test (NAAT)performed on the
[employer] platform.
--- NOTE | 2025-09-08 09:26 | W.PN.HOSP.TC ---
Today's Communication/Plan
-
Wean Precedex. Continue with benzos. MRI of the brain and EEG once stable
Wean vasopressors as well.
IV diuretics as blood pressure permits.
Continue with IV Zosyn
Assessment / Plan
Assessment / Plan
Unresponsive episode-patient was found in fecal matter and he has a tongue bite. Clinical concern so far based on the data points are methamphetamine probably overdose. CT of the head is negative for any acute findings.
High suspicion that he might have had a seizure.
Continue with benzos for his agitation and restlessness
Appreciate neurology input who recommends MRI of the brain and EEG once more stable from agitation standpoint
Restlessness/agitation-secondary to TME-suspect secondary to drug use-continue benzos. On Precedex as well for agitation-wean as patient is very sedated.
Drug abuse-patient positive for methamphetamine/amphetamine.-Case management consult for care referral
Abnormal troponins-EKG shows no evidence of acute ischemic changes. Suspect nonischemic myocardial injury. Cardiology following
New cardiomyopathy-unclear etiology. Ischemia eval per cardiology
Acute heart failure with reduced EF-patient echo showed EF of 27%. Currently on IV diuresis as blood pressure permits.
Hypotension with shock requiring low-dose vasopressors. Creatinine is okay. Doubt sepsis-afebrile, white count normal and is on antibiotics for presumed aspiration pneumonitis and pneumonia. If unable to wean vasopressors might need to consider
RHC.
Right lobe consolidation-with unresponsiveness concern for aspiration pneumonitis/pneumonia-continue with empirical Zosyn. Do not see indication for IV vancomycin. Blood cultures are pending.
Dilated small bowel loops on CT-abdomen is nondistended and soft. Limited exam without oral contrast. Follow for any diarrhea.
Urinary bladder thickening on the CT-UA negative for infection probably secondary to underdistention
Elevated CPK-possibly secondary to rhabdo versus seizures consider evaluation
Acute transaminitis-no gallbladder disease on CT. Liver was homogenous raising concern for fatty infiltration. No cholestasis picture. Suspect may be related to rhabdo. With hypotension and shock liver could be in play. Check GGT.
Diabetes mellitus type 2-continue the sliding scale. Continue Lantus at a lower dose. Uncontrolled hyperglycemia with hemoglobin A1c of 11. Elevated beta hydroxybutyrate acid noted but no acidosis or elevated anion gap. Suspect secondary to
fasting ketoacidosis.. Diabetic nurse PHOTOSTAT OPERATOR HELPER following. Blood sugars have improved. No acidosis evident on BMP
Hyperlipidemia-hold statins due to rhabdo.
Discussed with GRAIN SHOVELER
Total time spent on today's encounter was 52 minutes which included time spent in counseling the patient/family regarding diagnosis and treatment plan as listed above, goals of care, and symptom management. Case was discussed with nursing staff,
specialists, and care coordinators/case management. All labs and imaging personally reviewed by me. Remainder the time spent in detailed review of previous records, lab data, imaging, and other medical provider documentation.
Portions of this chart may have been created with voice recognition software. Occasional wrong word or 'sound alike' substitutions may have occurred due to the inherent limitations of voice recognition software.
Anticipated Discharge: > 48 hours
Subjective/Interval History
-
Date of Service: September 08, 2025
Patient is sedated no history is available from the patient. He moans and groans to painful stimuli. Moves all 4 limbs which are in restraints.
No respiratory distress noted
Objective Data
-
Labs:
Laboratory Results
09/08/25
03:25
WBC 8.8
Hgb 13.3
Hct 42.9
Plt Count 185
Sodium 144 D
Potassium 4.1
Chloride 112 H
Carbon Dioxide 23
BUN 27 H
Creatinine 1.0
Glucose 102 H
Calcium 7.4 L
Total Bilirubin 2.6 H
AST 905 H*
ALT 420 H
Alkaline Phosphatase 83
Vital Signs:
Vital Signs
Temp Pulse Resp BP Pulse Ox
97.8 F 58 24 87/70 97
09/08/25 08:08 09/08/25 07:30 09/08/25 07:30 09/08/25 07:30 09/08/25 07:30
I&O
09/07/25 09/08/25 09/09/25
06:59 06:59 06:59
Intake Total 5589.0 / 5729.3 3402.6 / 3419.6
Output Total 550 / 900 1720 / 1720
Balance 5039.0 / 4829.3 1682.6 / 1699.6
Review of Systems
-
Unable to obtain full review of systems at this time due to: Other (Sedate)
Physical Exam
-
General: No Apparent Distress
Respiratory: Clear to Auscultation (Anteriorly) and Non Labored Respirations; Negative Accessory Resp Muscle Use
Cardiac: Regular Rhythm and S1/S2; Negative Tachycardic
GI: Soft, Nondistended and Normal Bowel Sounds
Musculoskeletal: No Edema
Neuro: Sedated
Psych: Calm
Data Reviewed
-
Labs: Labs Reviewed by me
[2025-09-08] MEDS: BACITRACIN OINTMENT 1 APPLIC TOPICAL ×3 (09:29→21:10)
[2025-09-08] MEDS: POLYTRIM OPHTHALMIC SOLUTION 1 DROP BOTH EYES ×4 (09:31→21:11)
--- NOTE | 2025-09-08 09:51 | PN.DE.MGMTRT ---
Insulin Management
- -
09/08/2025: Diabetes Management Consult Follow up
60 year old male who was found by his family unresponsive with tongue biting and in fecal matter. Clinical concern so far based on the data points are probable methamphetamine overdose. High suspicion that he might have had a seizure. CT of the
head is negative for any acute findings. PMH DKA, HTN, HLD. Chart indicates he was taking Lantus 35 units @ HS and NovoLog 10 units AC. A1C is 11%, Cr 1, eGFR >60.
Pt is somnolent, per nurse not answering questions and unable to participate in conversation. No family at bedside.
Tongue is swollen w/a laceration. All information obtained from chart and Nurse.
09/07 Glucose range 101 to 243. Received 15 units lantus @ HS.
09/08 Fasting glucose 85. Patient is NPO. 12 noon glucose 36, treated then 73. Will reduce lantus to 8 units @ HS with low corrective q 6 hours. Request 3AM glucose
Will cont to follow. Discussed with Nurse
Diabetes History
- -
Type of Diabetes: 2 requiring insulin
Pre-Admission Diabetes Regimen
09/08/25
03:25
Creatinine 1.0
Lab Results
Hemoglobin A1c 11.0 % (4.0-5.9) H 09/07/25 03:53
Insulin Pump Settings
IP Diabetes Regimen
09/07/25 09/07/25 09/07/25
11:40 17:47 23:52
Glucose
POC Glucose 130 H 101 H 102 H
09/08/25 09/08/25
03:25 05:21
Glucose 102 H
POC Glucose 85
Meal type: Lunch
Patient Education
--- NOTE | 2025-09-08 10:23 | W.PN.CD ---
Today's Communication / Plan
-
BP is still low on Precedex
Hold Lasix with VIRI and hypotension
Add on GDMT as tolerated
We will continue to follow along
Impression / Plan
-
I/P: 60M with HTN, HLD, and T2DM on insulin presented unresponsive from home, with concern for seizure and methamphetamine overdose. Found to have severely reduced LVEF.
Acute HFrEF
-TTE 09/07/2025: LVEF 27%, normal RV, LAE, aortic sclerosis
-Unclear etiology. May be secondary to his stimulant use. Will need outpatient stress test for ischemic evaluation.
-BPs are low. Once they improve we will add on GDMT as tolerated
-Hold diuresis for now given that he is breathing comfortably on room air and has an VIRI.
Change in mental status
- Likely in the setting of methamphetamine use. Improving.
- On Precedex. Wean as tolerated.
Rhabdomyolysis
- CK 716 -> 940, per primary
Abnormal troponin
- Troponin 0.084, 0.096, 0.102, 0.106, 0.103
- This is likely in the setting of rhabdomyolysis
- EKG without acute ischemia
- Outpatient ischemic evaluation as above
Hypertension
- Hypotension on arrival, lisinopril on hold
Type 2 diabetes mellitus, requiring insulin
- History of being uncontrolled as he had an A1c of 15.4% when he was here with DKA in May
Hypercholesterolemia
- Atorvastatin 40 mg on hold in the setting of rhabdomyolysis
- LDL below goal
Subjective: wakes to voice but not answering questions.
Physical Exam
Vital Signs/Labs
Vital Signs
Temp Pulse Resp BP Pulse Ox
97.8 F 60 16 85/70 92
09/08/25 08:08 09/08/25 10:00 09/08/25 10:00 09/08/25 10:00 09/08/25 10:23
09/07/25 09/08/25 09/09/25
06:59 06:59 06:59
Actual Weight 187 lb 13.341 oz 197 lb 5.019 oz
09/08/25 03:25
09/08/25 03:25
PT 17.0 Sec (11.4-14.6) H 09/07/25 03:53
INR 1.35 09/07/25 03:53
APTT 32.9 Sec (23.4-35.0) 09/07/25 03:53
Magnesium 1.9 mg/dl (1.6-2.3) 09/08/25 03:25
Triglycerides 81 mg/dl (10-149) 09/07/25 03:53
LDL Cholesterol, Calc 43 mg/dl 09/07/25 03:53
VLDL Cholesterol, Calc 16 mg/dl (0-30) 09/07/25 03:53
HDL Cholesterol 38 mg/dl 09/07/25 03:53
09/06/25
10:42
Jej-A-Ldwuaxvckal Pept 9900
LAB Results
09/06/25 09/06/25 09/06/25
10:42 13:49 18:20
Troponin I 0.084 H* 0.096 H* 0.102 H*
09/07/25 09/07/25
01:33 06:00
Troponin I 0.106 H* 0.103 H*
Physical Exam
Constitutional: No acute distress and Comfortable
Cardiovascular: Rhythm & rate is regular, Pedal edema present (1+ bilateral), S1S2 is normal and Murmur/rub/gallop absent
Respiratory: Respiratory effort normal
Data Reviewed
-
Date of Service: September 08, 2025
Medical Decision Making: Reviewed Test Results, Independent Historian Assessment, Test Interpretation and Review of Case with other Provider
EKG: Tracing Personally Visualized and interpreted
Echo: Report Reviewed by me
Labs: Labs Reviewed by me
--- NOTE | 2025-09-08 10:55 | PTCARENOTE ---
Pt was rec'd this am from night RN in walking rounds, Precedex infusing, continuing to wean down, pt is following commands, engaging in appropriate conversation, speech is slurred due to extremely poor dentition and dry mouth, oral care provided
frequently. Sats mid 90s on room air. Extremities cool, Dopp pulses checked. Pt was turned and repositioned, he did begin coughing and became very PETER, lung sounds extremely decreased, sat back up and was suctioned for large brown ball of sputum,
sa02 maintained in 90s. Oral care again provided. Plan discussed with pt and his mother by phone, and care team. Safe environment maintained.
--- NOTE | 2025-09-08 11:46 | PN.CDI ---
CDI
- -
CDI:
Physician Documentation Request
Admit Date: 09/06/25 14:45
Dear Doctor,
Please review the following and provide your response in the progress notes.
Current documentation includes a diagnosis of Shock.
Clinical Indicators:
Pt admitted for TME, concerns for overdose.
09/08 Progress Note: ' Hypotension with shock requiring low-dose vasopressors. Creatinine is okay. Doubt sepsis-afebrile, white count normal and is on antibiotics for presumed aspiration pneumonitis and pneumonia. If unable to wean vasopressors
might need to consider RHC.'
09/08 Cardiology Note: ' Acute HFrEF
-TTE 09/07/2025: LVEF 27%, normal RV, LAE, aortic sclerosis
-Unclear etiology. May be secondary to his stimulant use. Will need outpatient stress test for ischemic evaluation.
-BPs are low. Once they improve we will add on GDMT as tolerated
-Hold diuresis for now given that he is breathing comfortably on room air and has an VIRI.'
09/07 Pt received 3 Liter IVF boluses
Please clarify which of the following is the most likely type of shock with etiology of the above symptoms and treatment rendered:
Cardiogenic shock
Hypovolemic shock
Other
Unable to determine
Use of terms such as suspected, likely, concern for, or probable (associated with a specific diagnosis that is being evaluated, monitored, or treated as if it exists) are acceptable and can be coded in the inpatient setting, when documented at the
time of discharge.
Thank you,
Mariel Sanchez RN, BSN
CDI Specialist
[facility]
Please use your independent medical judgment in providing your response.
[2025-09-08] MEDS: DEXTROSE 50% SYRINGE 12.5 GRAMS IV ×2 (12:02→16:56)
[2025-09-08 12:25] LABS: Glucose - Point of Care 36 mg/dl (70-99)
[2025-09-08 12:30] LABS: Glucose - Point of Care 73 mg/dl (70-99)
--- NOTE | 2025-09-08 13:28 | PTCARENOTE ---
Precedex has been weaned to off, pt remains calm and cooperative at this time. Continuing to closely monitor.
--- NOTE | 2025-09-08 13:47 | CM ---
Consult for pricing of Farxiga 10mg daily, Jardiance 10 mg daily, Entresto 24/26mg BID. Consult then cancelled. No pricing required at this time.
--- NOTE | 2025-09-08 14:02 | CM ---
Initial assessment completed with mother. Patient lives with his mother in a single story mobile home with 3 steps to enter. CASING IN LINE SETTER patient was independent in ADL's and ambulation, drives. No DME. No in-home services. No HC-POA. No VA benefits. No
psychiatric hospitalizations. [facility] previously notified. Discharge POC: TBD.
[2025-09-08 15:12] LABS: Glucose - Point of Care 74 mg/dl (70-99)
[2025-09-08] MEDS: HEPARIN 5000 UNITS SC (15:31)
--- NOTE | 2025-09-08 15:46 | PTCARENOTE ---
Keane cath removed, male pure wick applied. Pt did not pass speech eval, will remain NPO and speech will reeval tomorrow.(Pt continues with random episodes of harsh non productive cough.) Pt updated and in agreement. Restraints off at this time.
Continuing to closely monitor.
--- NOTE | 2025-09-08 16:11 | PTOTSP ---
Dysphagia Evaluation:
Given coughing episodes and throat clearing w/ thins and ice chips during bedside swallow evaluation, it is recommended that pt is strict NPO until further F/U w/ ST. Pt presents w/ acute risk factors for aspiration/dysphagia given altered mental
status and compromised respiratory state (i.e., concern for aspiration pneumonitis/pneumonia as pt has a right lower lobe consolidation after acute unresponsiveness episode.)
Recommendations:
1. Strict NPO
2. Non-oral means of medications
3. F/U w/ ST to trial diet level advancements and determine need for instrumental testing.
[2025-09-08 17:01] LABS: Glucose - Point of Care 53 mg/dl (70-99)
--- NOTE | 2025-09-08 17:04 | PTCARENOTE ---
Addendum entered by Rhea Hernandez RN 09/08/25 17:39:
Correction, lantus placed on hold per simulation educatorMyriam.
Original Note:
Pt again hypoglycemic for second time today, see hypoglycemic treatment documentation. certified lactation educator aware. Lantus dose adjusted.
[2025-09-08 17:28] LABS: Glucose - Point of Care 73 mg/dl (70-99)
[2025-09-08 19:03] LABS: Glucose - Point of Care 72 mg/dl (70-99)
--- NOTE | 2025-09-08 20:00 | PTCARENOTE ---
Received pt. at 1900. Pt. currently in bed. Awake and alert. Oriented to self and place, but has periods of confusion and forgetfulness. Denies pain/discomfort. Afebrile. Heart rhythm sinus. Blood pressure normotensive. Currently on nasal cannula.
Frequent non-productive wet cough. Currently NPO. Failed speech and swallow evaluation today. Made strict NPO. Pt. keeps complaining that we are 'starving him'. Educated pt. on why he can't have PO intake. Explained to him multiple times that he is
aspirating and it is not safe for him to eat/drink at this time. Multiple episodes of hypoglycemia today. Following hypoglycemia protocol. Pt. Keane catheter removed earlier today. Due to void. Skin as documented. Discussed plan of care with
patient. Vital signs stable at this time.
[2025-09-08 21:17] LABS: Glucose - Point of Care 76 mg/dl (70-99)
[2025-09-08 23:20] LABS: Glucose - Point of Care 84 mg/dl (70-99)
[2025-09-08] MEDS: ATIVAN 1 MG IV (23:37)
[2025-09-09] VITALS (21 sets, daily range): BP systolic 128–166; BP diastolic 31–106; PULSE 105; O2SAT 94; BMI 29.7
[2025-09-09] MEDS: HEPARIN 5000 UNITS SC ×3 (00:09→16:18)
--- NOTE | 2025-09-09 01:30 | PTCARENOTE ---
Pt. assessment unchanged. Remains confused at times. Multiple episodes incontinent of liquid stool. Hygiene care performed. Rectal trumpet placed. Continues with frequent non-productive wet cough.
[2025-09-09] MEDS: DEXTROSE 50% SYRINGE 12.5 GRAMS IV (02:53)
[2025-09-09 03:00] LABS: Glucose - Point of Care 71 mg/dl (70-99)
--- NOTE | 2025-09-09 03:45 | PTCARENOTE ---
Pt. assessment remains unchanged. AM labs drawn. Vital signs stable at this time.
[2025-09-09 04:08] LABS: Hematocrit 45.9 % (39.0-52.0); Hemoglobin 14.4 g/dL (13.0-18.0); Mean Corp Hgb Conc. 31.4 g/dL (33.0-37.0); Mean Corpuscular Volume 92.4 fL (80.0-94.0); Platelet Count 218 10^3/uL (130-400); Red Cell Dist. Width 13.0 % (11.5-14.5)
[2025-09-09 04:27] LABS: ALT (SGPT) 406 U/L (0-50); AST (SGOT) 372 U/L (17-59); Albumin 3.4 g/dl (3.5-5.0); Alkaline Phosphatase 110 U/L (38-126); Blood Urea Nitrogen 25 mg/dl (9-20); Calcium 8.4 mg/dl (8.4-10.2); Carbon Dioxide 22 mmol/L (22-30); Chloride 111 mmol/L (98-107); Estimated Creatinine Clearance 95 ml/min; Glucose 101 mg/dl (70-99); Potassium 3.7 mmol/L (3.5-5.1); Sodium 141 mmol/L (135-145); Total Protein 6.6 g/dl (6.3-8.2); eGFR > 60.00
[2025-09-09 04:41] LABS: Venous Blood Gas B.E. -3.3 mmol/L (-4 to +4); Venous Blood Gas O2 Sat % 99.1 %
[2025-09-09 05:40] LABS: Glucose - Point of Care 80 mg/dl (70-99)
[2025-09-09] MEDS: D5/0.45%NACL 500 IV (07:24)
[2025-09-09] MEDS: POLYTRIM OPHTHALMIC SOLUTION 1 DROP BOTH EYES ×4 (07:27→21:16)
[2025-09-09] MEDS: BACITRACIN OINTMENT 1 APPLIC TOPICAL ×3 (07:27→21:15)
--- NOTE | 2025-09-09 07:58 | W.PN.INTV ---
Today's Communication / Plan
Recommendations
Agree with resumption of antibiotics
Possible right perihilar infiltrate noted
Continue with airway clearance measures, out of bed to chair as able
Await swallowing evaluation, remains n.p.o.
PT/OT
Lasix as needed
For transfer out of ICU. We will sign off. Please call with questions
Assessment
-
Assessment: 60-year-old male with a past medical history of hypertension, diabetes, methamphetamine abuse, and hyperlipidemia who presents with being found unresponsive on the floor. 911 called and patient was arousable to pain by to EMS, with
blood sugar 88. 500 cc bolus of fluids were given as his SBP was in the 90s. There appeared to be bags of drugs all over the room. When he arrived here to the ER he was moaning and groaning and covered in fecal matter. Patient remains
unresponsive, unable to interact with me for this HPI. In the ER he was tachycardic to 110, tachypneic to 22, BP 142/100 and he was saturating 97% on room air. Initial labs pertinent for mild leukocytosis to 11, Hb 13.9, magnesium 0.8, CK 7016,
troponin 0.084, proBNP 9 900, urinalysis with +3 ketones and urine toxicology showing amphetamines + methamphetamines. Beta-hydroxybutyrate elevated at 3.22 and COVID-19 antigen was negative. His POCT glucose was low at 67. Blood and urine
cultures collected. CT facial bones showed no soft tissue abscess, CT head showed no acute intracranial abnormality, CXR showed low lung volumes without any focal airspace disease or pulmonary edema, and CT chest/abdomen/pelvis showed cardiomegaly
with possible pulmonary vascular congestion with small bilateral pleural effusions, small right lower lobe consolidation due to pneumonia versus atelectasis with fluid in the nondilated loops of small bowel, unable to exclude ileus/enteritis, with
mild hepatomegaly with suspected diffuse fatty liver and relative diffuse thickening of the wall of the urinary bladder due to either underdistention versus cystitis. Magnesium was given and due to his poor mental status with need for close
monitoring and possible need for intubation for airway protection, he was admitted to the ICU with sweet pickled fruit maker service consulted for additional management/recommendations.
Conditions present MOLDER FLOOR:
HTN
Hyperlipidemia
Insulin-dependent diabetes w/ neuropathy
Substance abuse, UDS + meth/amphet
Cocaine/heroine/meth history, incarceration
Lumbar back pain
Impression:
#Acute encephalopathy likely due to polysubstance use with intoxication
#Suspected aspiration pneumonitis
#Leukocytosis (mild)
#Hypomagnesemia
#Elevated CK due to mild rhabdomyolysis
#Elevated troponin likely due to either demand ischemia or due to rhabdomyolysis
#Elevated proBNP
#Polysubstance abuse with amphetamine/methamphetamine abuse
#DM type II (uncontrolled with HbA1C> 14% on 05/20/2025) c/b hypoglycemia
#Starvation ketosis
Plan/recommendations:
At this time, patient continues to improve objectively and subjectively
Significant cough noted, low-grade fever noted
Aspiration risk remains
Creatinine improved
Negative fluid status noted
Oxygen requirement noted, requiring 2 L, 93%
Weight increased 5 kg since admission
Echocardiogram EF 27%
Off Precedex
Off pressors
Remains n.p.o. due to aspiration risk
Moving forward
Continue with supportive care
mental status is improving, patient becoming more alert and following commands, More appropriate
Out of bed to chair as able
Creatinine bump noted to 1.0, now improved to 0.8
Urine output adequate
Consider additional Lasix therapy
Cardiology following
Follow blood sugars
Hemoglobin A1c noted 11.0
Insulin as needed, blood sugar improved this morning 102
Remains NPO. Episodes of hypoglycemia through the night noted
D5 maintenance fluids for now
Acute transaminitis noted
Likely combination of shock liver, possible volume overload
Avoid hepatotoxic medications
IV fluids held
Patient received 1 dose of Lasix yesterday p.m.
Echocardiogram with EF 27%
Cardiology following
Follow liver function, improving
Patient is at risk for aspiration, respiratory event
Head of bed elevated
100% saturation on 6 L, down to 2 L
Chest x-ray with questionable right perihilar infiltrate, suspected aspiration
Unasyn resumed. Continue for now
MRSA screen positive
Bacitracin for eyelid swelling, improved
Facial imaging no evidence of significant abnormality
DVT ppx: Enoxaparin
GI prophylaxis not indicated
Reviewed with primary service, pharmacy, critical care nursing, respiratory care
Okay for transfer out of ICU.
We will sign off. Please call with questions
Subjective Dataa
Subjective Data
Date of Service:
Date of Service: September 09, 2025
Subjective:
Overall, patient slowly continues to improve. Mild tachycardia noted, mild low-grade fever noted. 93% on 2 L. Negative fluid status noted. Chest x-ray improved but there may be a mild right perihilar infiltrate. White count noted. Patient
remains n.p.o. due to ongoing aspiration risk. Adequate cough
Objective Data
Data Reviewed
Vital Signs / I&O / Oxygen:
Vital Signs
Temp Pulse Resp BP Pulse Ox
99.1 F 108 14 138/93 97
09/09/25 07:25 09/09/25 06:00 09/09/25 06:00 09/09/25 06:00 09/09/25 06:00
Intake and Output
09/08/25 09/09/25 09/10/25
06:59 06:59 06:59
Intake Total 3402.6 / 3419.6 192.4 / 192.4
Output Total 1720 / 1760 1035 / 1035
Balance 1682.6 / 1659.6 -842.6 / -842.6
SaO2 97
Nasal Cannula flow liters per 2
minute
Physical Exam
General: Comfortable
HEENT: Normocephalic, Anicteric, Other (Large neck) and Other (Mucosal abrasions, tongue abrasion)
Cardiovascular: S1-S2, Regular Rhythm, Murmur (n) and Peripheral Edema (tr)
Respiratory: Wheeze (n), Crackles (n), Rhonchi (few), Non-Labored Respirations and Stridor (n)
GI: Soft, Non Distended (Obese) and Non Tender
Neurology: Awake, Alert and No Motor Deficits (Moving all extremities, pressing the call button)
Skin: Cyanosis (n) and Bruising (Few scattered abrasions)
Labs/Micro/Reports
Lab Data
09/09/25 03:41
09/09/25 03:41
Microbiology
09/06/25 11:40 Blood/Venous Blood Culture - Preliminary
No Growth in 48 hours- Final report to follow
09/06/25 10:45 Blood/Venous Blood Culture - Preliminary
No Growth in 48 hours- Final report to follow
09/06/25 18:20 Nose MRSA Screen - Final
Staph aureus MRSA
09/06/25 10:42 Urine Urine Culture - Final
NO GROWTH
09/06/25 10:42 Nasal Swab Influenza Types A & B (CATHIE) - Final
Negative for Influenza A & B, NAAT
Negative results must be combined with clinical observations
and patient history.
Nucleic Acid Amplification test (NAAT)performed on the
[employer] platform.
[2025-09-09 08:17] LABS: Glucose - Point of Care 93 mg/dl (70-99)
--- NOTE | 2025-09-09 08:48 | PN.DE.MGMTRT ---
Insulin Management
- -
09/09/2025: Diabetes Management Consult Follow up
60 year old male who was found by his family unresponsive with tongue biting and in fecal matter. Clinical concern so far based on the data points are probable methamphetamine overdose. High suspicion that he might have had a seizure. CT of the
head is negative for any acute findings. PMH DKA, HTN, HLD. Chart indicates he was taking Lantus 35 units @ HS and NovoLog 10 units AC. A1C is 11%, Cr 1, eGFR >60.
Pt is sleeping at the time of my visit, he did awaken and answer questions but seemed confused about how much insulin he takes. No family at bedside.
He states he has had diabetes 10 years and had an brood hatchery manager but had not seen the endo in 6 months. Endo was at [facility]. He states he took basaglar 30 units at bedtime aand not sure of novolog dose. He states he has a DexCom but has to
set it up.
09/08 Fasting glucose 85. Patient is NPO. 12 noon glucose 36, treated then 73. Patient glucose 76 @ HS and 71 @3am. Lantus held.
09/09 Will stop hs lantus and continue low corrective insulin only. D51/2 now started by database marketing analyst. No insulin has been administered since HS dose 09/07.
Will cont to follow.
Discussed with Nurse
Diabetes History
- -
Type of Diabetes: 2 requiring insulin
Pre-Admission Diabetes Regimen
09/09/25
03:41
Creatinine 0.8
Lab Results
Hemoglobin A1c 11.0 % (4.0-5.9) H 09/07/25 03:53
Insulin Pump Settings
IP Diabetes Regimen
09/08/25 09/08/25 09/08/25
12:00 12:20 15:01
Glucose
POC Glucose 36 L* 73 74
09/08/25 09/08/25 09/08/25
16:50 17:17 19:01
Glucose
POC Glucose 53 L* 73 72
09/08/25 09/08/25 09/09/25
21:02 23:08 02:49
Glucose
POC Glucose 76 84 71
09/09/25 09/09/25 09/09/25
03:41 05:29 08:06
Glucose 101 H
POC Glucose 80 93
Patient Education
--- NOTE | 2025-09-09 09:16 | W.PN.HOSP.TC ---
Today's Communication/Plan
-
Consider resuming antibiotics
Speech eval-okay to go ahead with fees study
PT and OT eval
Psychiatry consult
Transfer to IMU
Assessment / Plan
Assessment / Plan
Unresponsive episode-patient was found in fecal matter and he has a tongue bite. Clinical concern so far based on the data points are methamphetamine probably overdose. CT of the head is negative for any acute findings.
High suspicion that he might have had a seizure.
Continue with benzos for his agitation and restlessness
Appreciate neurology input who recommends MRI of the brain and EEG once more stable from agitation standpoint.
With improved mentation will request MRI of the brain and EEG.
Restlessness/agitation-secondary to TME-suspect secondary to drug use-improved and off of Precedex.
Continue benzos as needed.
Drug abuse-patient positive for methamphetamine/amphetamine.-Case management consult for care referral
History of mood dysfunction-patient claims he ran out of medication. Consult psychiatry.
Abnormal troponins-EKG shows no evidence of acute ischemic changes. Suspect nonischemic myocardial injury. Cardiology following
New cardiomyopathy-unclear etiology. Ischemia eval per cardiology
Acute heart failure with reduced EF-patient echo showed EF of 27%. Currently on IV diuresis as blood pressure permits.
Hypotension with shock requiring low-dose vasopressors. Creatinine is okay. Doubt sepsis-afebrile, white count normal and is on antibiotics for presumed aspiration pneumonitis and pneumonia.
Off of vasopressors.
Right lobe consolidation-with unresponsiveness concern for aspiration pneumonitis/pneumonia- Blood cultures are negative so far.
Low-grade fever, chest x-ray raising possibility of right suprahilar region infiltrate, rising white count, no ongoing cough with productive phlegm I would favor antibiotic coverage for pneumonic process.
Dilated small bowel loops on CT-abdomen is nondistended and soft. Limited exam without oral contrast. Denies any abdominal pain, nausea or vomiting.
Urinary bladder thickening on the CT-UA negative for infection probably secondary to underdistention
Elevated CPK-possibly secondary to rhabdo versus seizures
Acute transaminitis-no gallbladder disease on CT. Liver was homogenous raising concern for fatty infiltration. No cholestasis picture. Suspect may be related to rhabdo. With hypotension and shock liver could be in play.
Improving.
Unconjugated hyperbilirubinemia-direct bilirubin normal.
Diabetes mellitus type 2-continue the sliding scale. Continue Lantus at a lower dose. Uncontrolled hyperglycemia with hemoglobin A1c of 11. Elevated beta hydroxybutyrate acid noted but no acidosis or elevated anion gap. Suspect secondary to
fasting ketoacidosis.. Diabetic nurse MANAGER NUCLEAR following. Blood sugars have improved. No acidosis evident on BMP
Hyperlipidemia-hold statins due to rhabdo.
Discussed with DEMAND PLANNING ANALYST and automotive services manager
Transferred to IMU
Total time spent on today's encounter was 52 minutes which included time spent in counseling the patient/family regarding diagnosis and treatment plan as listed above, goals of care, and symptom management. Case was discussed with nursing staff,
specialists, and care coordinators/case management. All labs and imaging personally reviewed by me. Remainder the time spent in detailed review of previous records, lab data, imaging, and other medical provider documentation.
Portions of this chart may have been created with voice recognition software. Occasional wrong word or 'sound alike' substitutions may have occurred due to the inherent limitations of voice recognition software.
Anticipated Discharge: > 48 hours
Subjective/Interval History
-
Date of Service: September 09, 2025
Patient now off of Precedex.
His mentation is much better. Is alert and oriented to place, day of the week, month in the ER.
He says he 'methed out' as he cannot get his medications filled for mood disorder.
He says he still active and working.
Known diabetic and has insulin pump. He is waiting for Medicare to kick in so he can get CGM as well. He gets his diabetes care through [facility].
Ongoing cough but denies any shortness of breath or chest pain. No nausea vomiting. Denies abdominal pain.
Denies any lightheadedness.
Objective Data
-
Labs:
Laboratory Results
09/09/25
03:41
WBC 13.2 H
Hgb 14.4
Hct 45.9
Plt Count 218
Sodium 141
Potassium 3.7
Chloride 111 H
Carbon Dioxide 22
BUN 25 H
Creatinine 0.8
Glucose 101 H
Calcium 8.4
Total Bilirubin 3.9 H
AST 372 H
ALT 406 H
Alkaline Phosphatase 110
Vital Signs:
Vital Signs
Temp Pulse Resp BP Pulse Ox
99.1 F 108 14 138/93 97
09/09/25 07:25 09/09/25 06:00 09/09/25 06:00 09/09/25 06:00 09/09/25 06:00
I&O
09/08/25 09/09/25 09/10/25
06:59 06:59 06:59
Intake Total 3402.6 / 3419.6 192.4 / 192.4
Output Total 1720 / 1760 1035 / 1035
Balance 1682.6 / 1659.6 -842.6 / -842.6
Physical Exam
-
General: No Apparent Distress
HEENT: Moist Mucous Membranes
Respiratory: Clear to Auscultation and Non Labored Respirations; Negative Accessory Resp Muscle Use
Cardiac: Regular Rhythm, S1/S2 and Tachycardic
GI: Soft and Nontender
Neuro: AO x 3
Psych: Calm
Data Reviewed
-
Labs: Labs Reviewed by me
[2025-09-09] MEDS: UNASYN IV ×2 (11:17→17:27)
--- NOTE | 2025-09-09 12:04 | PTCARENOTE ---
pt awake and oriented to place with confused conversation , forgetful , follows commands and is cooperative , gambling monitor tachy , BP adequate , on 6L NC with sats of 94% , lungs diminished , frequent non productive cough , pt seen by speech
therapy and remains NPO for aspiration risk , concern for low glucose overnight , pt is now on D51/2 nss at 50ml hour , started on low dose insulin scale , labs noted , he is positive for MRSA in nares , incontinent of urine and bowel, psychiatry is
consulted , he has been downgraded to IMU level of care
[2025-09-09] MEDS: NOVOLOG FLEXPEN-LOW RESISTANCE SC ×3 (12:16→23:53)
--- NOTE | 2025-09-09 12:25 | W.PN.CD ---
Today's Communication / Plan
-
Slowly add GDMT for HFrEF
Impression / Plan
-
I/P: 60M with HTN, HLD, and T2DM on insulin presented unresponsive from home, with concern for seizure and methamphetamine overdose. Found to have severely reduced LVEF.
Acute HFrEF, LVEF 27%
- Slowly add GDMT
- Etiology of cardiomyopathy is unknown, will consider elective outpatient stress test and HIV testing
- Seems compensated
Nonischemic myocardial injury from acute medical illness
Rhabdo
HTN
Drug use, mostly Met => I told him to abstain
DM, uncontrolled as he had an A1c of 15.4% when he was here with DKA in May
Mixed hyperlipidemia
Subjective: Denies CP or dyspnea
Echo 09/07/2025:
SUMMARY
1. Severe global LV hypokinesis. LVEF estimated 27%.
2. Normal right ventricular size and systolic function.
3. Mild left atrial large meant.
4. Aortic valve sclerosis without stenosis.
5. No prior study available for comparison.
Physical Exam
Vital Signs/Labs
Vital Signs
Temp Pulse Resp BP Pulse Ox
97.3 F 106 19 151/97 95
09/09/25 11:17 09/09/25 12:00 09/09/25 12:00 09/09/25 11:00 09/09/25 12:00
09/08/25 09/09/25 09/10/25
06:59 06:59 06:59
Actual Weight 89.5 kg 88.5 kg
09/09/25 03:41
09/09/25 03:41
PT 17.0 Sec (11.4-14.6) H 09/07/25 03:53
INR 1.35 09/07/25 03:53
APTT 32.9 Sec (23.4-35.0) 09/07/25 03:53
Magnesium 1.9 mg/dl (1.6-2.3) 09/08/25 03:25
Triglycerides 81 mg/dl (10-149) 09/07/25 03:53
LDL Cholesterol, Calc 43 mg/dl 09/07/25 03:53
VLDL Cholesterol, Calc 16 mg/dl (0-30) 09/07/25 03:53
HDL Cholesterol 38 mg/dl 09/07/25 03:53
09/06/25
10:42
Mhh-O-Ffvnhnxvowq Pept 9900
LAB Results
09/06/25 09/06/25 09/07/25
13:49 18:20 01:33
Troponin I 0.096 H* 0.102 H* 0.106 H*
09/07/25
06:00
Troponin I 0.103 H*
Physical Exam
Constitutional: No acute distress
EENT: Anicteric
Cardiovascular: Rhythm & rate is regular and Pedal edema is absent
Respiratory: Respiratory effort normal and Lungs clear to auscul.
GI: Soft
Neuro/Psych: AO x 3
Data Reviewed
-
Date of Service: September 09, 2025
--- NOTE | 2025-09-09 12:27 | PTCARENOTE ---
pt to transfer to room 3343 IMU , report given to receiving RN
--- NOTE | 2025-09-09 14:29 | W.PN.NEURO.1 ---
Addendum entered and electronically signed by Issa Perdomo MD 09/09/25 20:05:
The patient was seen and examined on 09/09/2025 along with the nurse practitioner Heather Soriano. I agree with the assessment and the management plan of nurse practitioner Heather Soriano. The following is my addendum.
The patient is a 60 years old male who presented to the hospital on 09/06/2025 with report of unresponsiveness. The patient's family found him on the floor unresponsive to painful stimuli and covered in feces.
The family found bags of methamphetamine on the floor and were worried about overdose. The patient also had a tongue bite. There was a concern about a seizure that the patient might have had. The toxicology screen was positive for
methamphetamine/amphetamine. On presentation to the hospital he was very agitated, however, today he is very calm and is able to follow verbal commands well.
On neurologic examination the patient today is alert and he knows his name. His speech appears to be grossly normal and he can follow verbal commands well. He does not appear to have any gross focal weakness.
The patient likely had altered mental status secondary to a seizure and substance withdrawal, and is it is less likely that he has had any hypoxic brain injury.
Seizure precautions including no driving for 6 months and according to the [place] law the patient needs to be [facility] as needed.
Will hold any antiepileptic medication at this time.
Will sign off. Please call if you have any question.
Original Note:
Today's Communication / Plan
-
.
Neuro Assessment/Plan
Assessment
The patient is a 60 years old male who presented to the hospital on 09/06/2025 with report of unresponsiveness. The patient's family found him on the floor unresponsive to painful stimuli and covered in feces.
The family found bags of methamphetamine on the floor and were worried about overdose. The patient also had a tongue bite. There was a concern about a seizure that the patient might have had. The toxicology screen was positive for
methamphetamine/amphetamine.
The patient likely has altered mental status secondary to seizure and substance withdrawal, and is it is less likely that he has had any hypoxic brain injury.
Plan
Seizure precautions including no driving for 6 months after discharge.
Will hold any antiepileptic medication at this time.
Do not see a role for further neurological imaging at this time as patient's mental status has significantly improved.
Neurology will sign-off, please contact our Neurology service with any questions/concerns.
Subjective/Objective
Subjective Data
Date of Service: September 09, 2025
No acute events overnight.
Objective Data
Vital Signs
Temp Pulse Resp BP Pulse Ox
97.3 F 106 19 151/97 95
09/09/25 11:17 09/09/25 12:00 09/09/25 12:00 09/09/25 11:00 09/09/25 12:00
Lab Results
09/09/25 03:41
09/09/25 03:41
PT 17.0 Sec (11.4-14.6) H 09/07/25 03:53
INR 1.35 09/07/25 03:53
APTT 32.9 Sec (23.4-35.0) 09/07/25 03:53
Sodium 141 mmol/L (135-145) 09/09/25 03:41
Potassium 3.7 mmol/L (3.5-5.1) 09/09/25 03:41
BUN 25 mg/dl (9-20) H 09/09/25 03:41
Glucose 101 mg/dl (70-99) H 09/09/25 03:41
Calcium 8.4 mg/dl (8.4-10.2) 09/09/25 03:41
Phosphorus 3.5 mg/dl (2.5-4.5) 09/06/25 18:20
Hub-N-Uzrjsqzpvsa Pept 9900 pg/ml 09/06/25 10:42
LDL Cholesterol, Calc 43 mg/dl 09/07/25 03:53
Ur Buprenorphine Negative (Negative) 09/06/25 10:42
Patient Allergies
No Known Allergies Allergy (Verified 08/14/23 09:51)
Review of Systems
-
History Source: Patient
Neuro: Negative Dizzy, Headache, Weakness, Numbness, Ataxia, Tremors or Speech Problem
Physical Exam
-
General: No Apparent Distress
Eyes: No Ptosis and PERRLA
HEENT: Normocephalic and Atraumatic
Neck: Full Range of Motion
Extended Neurological Exam
Mood & Affect: Mood Unremarkable and Affect Unremarkable
Attention Span & Concentration: Awake, Alert and Interactive
Memory: Reduced
Tremor: Hand Tremor Absent and Head Tremor Absent
Involuntary Movement: None
Speech: Quality Unremarkable, Quantity Unremarkable and Rate of Production Unremarkable
Cranial Nerves III, IV, : Extraocular Movement: Extraocular Movement Full in all Directions
Cranial Nerve VII: Facial Symmetry: Normal Facial Symmetry
Cranial Nerve VIII: Hearing: Unremarkable Hearing to Normal Conversational Volume
Muscle Strength, Overall: Full Throughout
Pronator Drift: No Drift in Upper Extremities and No Drift in Lower Extremities
Coordination: Fhcywv-eukg-iwrhfp Testing Unremarkable
Data Reviewed
-
CT Head: Report Reviewed and Image Reviewed
Labs: Report Reviewed
Reviewed with: Physician and Patient
Medications
-
Active Medications
Generic Name Dose Route Start Last Admin
Trade Name Freq PRN Reason Stop Dose Admin
Bacitracin 0 applic 09/06/25 17:02 09/09/25 07:27
Bacitracin Zinc Ointment (Topical) TOPICAL 1 applic
TID ROSIE Administration
Dapagliflozin 10 mg 09/10/25 08:00
Dapagliflozin (Farxiga) 10 Mg Tablet PO 10/08/25 07:59
DAILY ROSIE
Dextrose 12.5 grams 09/06/25 17:02 09/09/25 02:53
Dextrose 50% (0.5 Grams/Ml) 50 Ml Syringe IV 10/04/25 17:01 12.5 grams
[id number] PRN Administration
hypoglycemia
Protocol
Glucagon 1 mg 09/06/25 17:02
Glucagon 1 Mg Vial IM 10/04/25 17:01
PRN PRN
hypoglycemia
Protocol
Heparin Sodium 5,000 units 09/08/25 16:00 09/09/25 07:32
Heparin 5,000 Units/Ml 1 Ml Vial SC 10/06/25 15:59 5,000 units
Q8 ROSIE Administration
Dextrose/Sodium Chloride 500 mls @ 50 mls/hr 09/09/25 07:00 09/09/25 07:24
D5/0.45%Nacl IV 500 mls
.Q10H ROSIE Administration
Ampicillin Sodium/Sulbactam 60 mls @ 120 mls/hr 09/09/25 12:00 09/09/25 11:17
Sodium 1.5 gm/ Sodium Chloride IV 60 mls
Q6H ROSIE Administration
Insulin Aspart 0 units 09/09/25 12:00 09/09/25 12:16
Insulin Aspart Low Resistance 300 Units/3 Ml Pen.Injctr SC 10/07/25 11:59 Not Given
Q6 ROSIE
Protocol
Lisinopril 20 mg 09/10/25 08:00
Lisinopril 20 Mg Tablet PO 10/08/25 07:59
DAILY ROSIE
Lorazepam 1 mg 09/07/25 09:11 09/08/25 23:37
Lorazepam 2 Mg/Ml Vial IV 10/05/25 09:10 1 mg
Q4HPRN PRN Administration
agitation
Metoprolol Succinate 25 mg 09/10/25 08:00
Metoprolol 25 Mg Extended Release Tablet PO 10/08/25 07:59
DAILY ROSIE
Polymyxin/Trimethoprim Sulfate 1 drop 09/07/25 13:00 09/09/25 12:17
Polymyxin B/Trimethoprim (Ophthalmic Solution) 10 Ml Bottle BOTH EYES 10/05/25 12:59 1 drop
QID ROSIE Administration
Sodium Chloride 0 flush 09/06/25 16:00
Sodium Chloride 0.9% (Flush) Syringe IV 10/04/25 15:59
PER PROTOCOL ROSIE
Sodium Chloride 0.5 ml 09/07/25 10:08 09/07/25 20:53
Nss (Pf) 10 Ml Vial For Ativan 1 Mg Dose IV 10/05/25 10:07 0.5 ml
Q4HPRN PRN Administration
IV LORAZEPAM DILUTION
Spironolactone 25 mg 09/10/25 08:00
Spironolactone 25 Mg Tablet PO 10/08/25 07:59
DAILY ROSIE
Home Medications
�Medication �Instructions �Recorded
insulin aspart U-100 100 unit/mL 10 unit (0.1 mL) SC AC #15 mL 05/24/24
(3 mL) subcutaneous pen (Novolog
FlexPen U-100 Insulin aspart)
atorvastatin 40 mg tablet (Lipitor) 40 mg PO DAILY High Cholesterol 09/06/25
insulin glargine 100 unit/mL 35 unit SC QPM Diabetes 09/06/25
subcutaneous solution (Lantus
U-100 Insulin)
lisinopril 20 mg tablet 20 mg PO DAILY Blood Pressure 09/06/25
dapagliflozin propanediol 10 mg 10 mg PO DAILY #30 tabs 09/08/25
tablet (Farxiga)
--- NOTE | 2025-09-09 14:48 | CM ---
Transferred to IMU. Speech evaluated patient, remains NPO, await fees study, Psych consult, IV/AB. Discharge POC: Awaiting therapy eval and rec. [facility] following.
[2025-09-09 17:35] LABS: Glucose - Point of Care 105 mg/dl (70-99)
--- NOTE | 2025-09-09 17:53 | PTCARENOTE ---
Rec'd pt from ICU. Incontinent of bladder and bowel, climbed OOB x1. able to be redirected. repeatedly asking for food despite frequent reminders that he is NPO and unable to swallow safely. vital signs stable. harsh cough.
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
[2025-09-09 23:47] LABS: Glucose - Point of Care 139 mg/dl (70-99)
[2025-09-10] VITALS (12 sets, daily range): BP systolic 137–168; BP diastolic 79–114; PULSE 110; O2SAT 95; BMI 29.0
[2025-09-10] MEDS: UNASYN IV ×5 (00:05→23:12)
[2025-09-10] MEDS: HEPARIN 5000 UNITS SC ×4 (00:06→23:12)
--- NOTE | 2025-09-10 00:39 | PTCARENOTE ---
Assumed care for patient overnight. Pt oriented to place and person however was disoriented to time. Pt forgetful and repeats himself, however follows commands and cooperative. Pt asking for water and food multiple times, despite reinforcement of
strict NPO status due to aspiration risk. Pt has a frequent moist cough. SpO2 96% on 6L NC. IVF cont D51/2 NSS at 50ml/hr. IV abx administered. NSR to ST on the monitor HR 110's-120s. Pt incontinent of urine, male purewick replaced, skin is intact.
Full bath and linens changed Bed alarm is on, educated on using the call pichardo.
[2025-09-10] MEDS: D5/0.45%NACL IV (01:26)
[2025-09-10] MEDS: D5/0.45%NACL 1000 IV (03:43)
[2025-09-10 03:44] LABS: Hematocrit 45.6 % (39.0-52.0); Hemoglobin 14.3 g/dL (13.0-18.0); Mean Corp Hgb Conc. 31.4 g/dL (33.0-37.0); Mean Corpuscular Volume 94.4 fL (80.0-94.0); Platelet Count 205 10^3/uL (130-400); Red Cell Dist. Width 12.8 % (11.5-14.5)
[2025-09-10 04:09] LABS: ALT (SGPT) 477 U/L (0-50); AST (SGOT) 394 U/L (17-59); Albumin 3.2 g/dl (3.5-5.0); Alkaline Phosphatase 102 U/L (38-126); Blood Urea Nitrogen 14 mg/dl (9-20); Calcium 8.4 mg/dl (8.4-10.2); Carbon Dioxide 22 mmol/L (22-30); Chloride 110 mmol/L (98-107); Estimated Creatinine Clearance 109 ml/min; Glucose 149 mg/dl (70-99); Potassium 3.9 mmol/L (3.5-5.1); Sodium 146 mmol/L (135-145); Total Protein 6.0 g/dl (6.3-8.2); eGFR > 60.00
[2025-09-10 05:49] LABS: Glucose - Point of Care 155 mg/dl (70-99)
[2025-09-10] MEDS: NOVOLOG FLEXPEN-LOW RESISTANCE 1 UNITS SC ×3 (05:53→18:12)
[2025-09-10] MEDS: ALDACTONE PO (07:36)
[2025-09-10] MEDS: FARXIGA PO (07:37)
[2025-09-10] MEDS: ZESTRIL PO (07:37)
[2025-09-10 08:00] LABS: Glucose - Point of Care 107 mg/dl (70-99)
--- NOTE | 2025-09-10 08:13 | W.PN.CD ---
Today's Communication / Plan
-
Resume GDMT
Lasix 40 IV x1
Impression / Plan
-
I/P: 60M with HTN, HLD, and T2DM on insulin presented unresponsive from home, with concern for seizure and methamphetamine overdose. Found to have severely reduced LVEF.
Acute HFrEF, LVEF 27%
- Slowly add GDMT; start BB, SGLT2i, and KAI today. MRA in a few days if labs are stable
- Etiology of cardiomyopathy is unknown, will consider elective outpatient stress test and HIV testing
- 40 IV Lasix x1
Abnormal troponin
- Troponin 0.084, 0.096, 0.102, 0.106, 0.103
- This is likely in the setting of rhabdomyolysis
- EKG without acute ischemia
- Outpatient ischemic evaluation as above
Change in mental status, resolved
- Precedex weaned off
Rhabdomyolysis
- CK 716 -> 940, per primary
Hypertension
- GDMT as above
Type 2 diabetes mellitus, requiring insulin
- History of being uncontrolled as he had an A1c of 15.4% when he was here with DKA in May
Hypercholesterolemia
- Atorvastatin 40 mg on hold in the setting of rhabdomyolysis
- LDL below goal
Subjective: Denies CP or dyspnea. Endorses leg swelling.
Echo 09/07/2025:
SUMMARY
1. Severe global LV hypokinesis. LVEF estimated 27%.
2. Normal right ventricular size and systolic function.
3. Mild left atrial large meant.
4. Aortic valve sclerosis without stenosis.
5. No prior study available for comparison.
Physical Exam
Vital Signs/Labs
Vital Signs
Temp Pulse Resp BP Pulse Ox
98.4 F 109 16 152/92 97
09/10/25 07:11 09/10/25 06:01 09/10/25 06:01 09/10/25 02:00 09/10/25 06:01
09/09/25 09/10/25 09/11/25
06:59 06:59 06:59
Actual Weight 195 lb 1.745 oz 191 lb
09/10/25 03:33
09/10/25 03:33
PT 17.0 Sec (11.4-14.6) H 09/07/25 03:53
INR 1.35 09/07/25 03:53
APTT 32.9 Sec (23.4-35.0) 09/07/25 03:53
Magnesium 1.9 mg/dl (1.6-2.3) 09/08/25 03:25
Triglycerides 81 mg/dl (10-149) 09/07/25 03:53
LDL Cholesterol, Calc 43 mg/dl 09/07/25 03:53
VLDL Cholesterol, Calc 16 mg/dl (0-30) 09/07/25 03:53
HDL Cholesterol 38 mg/dl 09/07/25 03:53
09/06/25
10:42
Pzj-N-Doedeecteeq Pept 9900
Physical Exam
Constitutional: No acute distress and Comfortable
Cardiovascular: Rhythm & rate is regular, Pedal edema present, S1S2 is normal and Murmur/rub/gallop absent
Respiratory: Respiratory effort normal
Neuro/Psych: AO x 3
Data Reviewed
-
Date of Service: September 10, 2025
Medical Decision Making: Reviewed Test Results, Test Interpretation and Review of Case with other Provider
EKG: Tracing Personally Visualized and interpreted
Echo: Report Reviewed by me
Labs: Labs Reviewed by me
[2025-09-10] MEDS: POLYTRIM OPHTHALMIC SOLUTION 1 DROP BOTH EYES ×4 (08:17→20:21)
[2025-09-10] MEDS: BACITRACIN OINTMENT 1 APPLIC TOPICAL ×3 (08:17→20:21)
[2025-09-10] MEDS: LASIX 40 MG IV (08:19)
--- NOTE | 2025-09-10 08:56 | PN.DE.MGMTRT ---
Insulin Management
- -
09/10/2025: Diabetes Management Consult Follow up
60 year old male who was found by his family unresponsive with tongue biting and in fecal matter. Clinical concern so far based on the data points are probable methamphetamine overdose. High suspicion that he might have had a seizure. CT of the
head is negative for any acute findings. PMH DKA, HTN, HLD. Chart indicates he was taking Lantus 35 units @ HS and NovoLog 10 units AC. A1C is 11%, Cr 1, eGFR >60.
Pt is awake alert and oriented c/o being hungry - starving; Mother at bedside.
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 Endo was at [facility]. He states he took basaglar 30 units at bedtime and not sure of novolog dose. He states he has a DexCom but has to set
it up.
09/09 Lantus stopped, continued low corrective insulin only. D51/2 started by ion exchange operator. No insulin has been administered since HS dose 09/07. Glucose range 80 to 139.
09/10 Fasting glucose 155. IV fluids stopped. Patient remains NPO due to poor speech eval with aspiration. Dr. Morrow, cardiology, has started Farxiga 10 mg daily currently on HOLD due to strict NPO. Will continue corrective insulin only at this
time.
Will cont to follow.
Discussed with Nurse
Diabetes History
- -
Type of Diabetes: 2 requiring insulin
Pre-Admission Diabetes Regimen
09/10/25
03:33
Creatinine 0.7
Lab Results
Hemoglobin A1c 11.0 % (4.0-5.9) H 09/07/25 03:53
Insulin Pump Settings
IP Diabetes Regimen
09/09/25 09/09/25 09/09/25
12:15 17:23 23:35
Glucose
POC Glucose 107 H 105 H 139 H
09/10/25 09/10/25
03:33 05:38
Glucose 149 H
POC Glucose 155 H
Patient Education
--- NOTE | 2025-09-10 09:07 | PN.CDI ---
CDI
- -
CDI:
Physician Documentation Request
Admit Date: 09/06/25 14:45
Dear Doctor,
Please review the following and provide your response in the progress notes.
Clinical Indicators:
Pt admitted for TME, concerns for overdose.
'Acute heart failure with reduced EF-patient echo showed EF of 27%. Currently on IV diuresis as blood pressure permits.
antibiotics for presumed aspiration pneumonitis and pneumonia.' (PN 09/08)
09/08 RR noted as 22-29, O2 increased from 2LNC to 6LNC, PO 88-86% RA. 'Respiratory: Clear to Auscultation (Anteriorly) and Non Labored Respirations; Negative Accessory Resp Muscle Use( PN 09/08)
09/09 con't on 6LNC
Clarify which of the following accurately represents the patient's respiratory status:
Acute respiratory failure ( hypoxic, hypercapnic)
Hypoxia
Other
Additional information for Respiratory Failure:
Recognized criteria for Respiratory Failure (Source: Kike S. O. 2019 October 01.
Documentation tips: Acute Respiratory Failure, The Hospitalist.)
ABGs: (1 or more) Symptoms Please indicate type if known
1. p)2 <60 or RA SPO2 <91% on RA 1. Tachypnea, SOB, dyspnea Hypoxic
2. pCO2 >45 and pH <7.35 2. Use of accessory muscles Hypercapnic
3. pO2 decrease of pCO2 increase by 3. Pallor or cyanosis Hypoxic and Hypercapnic
10 mmHg from baseline if known 4. Anxiety or restlessness Unable to determine
4. P/F Ratio (pO2/FiO2)nless than 300 5. Unable to speak in full sentences
Use of terms such as suspected, likely, concern for, or probable (associated with a specific diagnosis that is being evaluated, monitored, or treated as if it exists) are acceptable and can be coded in the inpatient setting, when documented at the
time of discharge.
Thank you,
Mariel Sanchez RN, BSN
CDI Specialist
[place] [employer]
Please use your independent medical judgment in providing your response.
--- NOTE | 2025-09-10 12:52 | W.PN.HOSP.TC ---
Today's Communication/Plan
-
Continue speech therapy . If still remains n.p.o. today we will put an NG tube for Medications will start nutrition
Continue with low-dose IV abx.
PT/OT consults.
Assessment / Plan
Assessment / Plan
Unresponsive episode-patient was found in fecal matter and he has a tongue bite. Clinical concern so far based on the data points are methamphetamine probably overdose. CT of the head is negative for any acute findings.
High suspicion that he might have had a seizure.
Continue with benzos for his agitation and restlessness
Patient without agitation. Off of Precedex.
Neurology now has signed off and did not see commendation for further imaging.
Restlessness/agitation-secondary to TME-suspect secondary to drug use-improved and off of Precedex.
Continue benzos as needed.
Resolved
Drug abuse-patient positive for methamphetamine/amphetamine.-Case management consult for B care referral
History of mood dysfunction-patient claims he ran out of medication. Appt psychiatry input.
Abnormal troponins-EKG shows no evidence of acute ischemic changes. Suspect nonischemic myocardial injury. Cardiology following
New cardiomyopathy-unclear etiology. Ischemia eval per cardiology
Acute heart failure with reduced EF-patient echo showed EF of 27%. Diuretics on hold. Started on GDMT medication-lisinopril, metoprolol, spironolactone, Farxiga.
Hypotension with shock required low-dose vasopressors. Creatinine is okay. Doubt sepsis-afebrile, white count normal and is on antibiotics for presumed aspiration pneumonitis and pneumonia.
Off of vasopressors.
Right lobe consolidation-with unresponsiveness concern for aspiration pneumonitis/pneumonia- Blood cultures are negative so far.
Low-grade fever, chest x-ray raising possibility of right suprahilar region infiltrate, rising white count, no ongoing cough with productive phlegm I would favor antibiotic coverage for pneumonic process. Continue with IV Unasyn. Improving white
count.
Dilated small bowel loops on CT-abdomen is nondistended and soft. Limited exam without oral contrast. Denies any abdominal pain, nausea or vomiting.
Urinary bladder thickening on the CT-UA negative for infection probably secondary to underdistention
Elevated CPK-possibly secondary to rhabdo versus seizures
Acute transaminitis-no gallbladder disease on CT. Liver was homogenous raising concern for fatty infiltration. No cholestasis picture. Suspect may be related to rhabdo. With hypotension and shock liver could be in play.
Improving.
Unconjugated hyperbilirubinemia-direct bilirubin normal.
Diabetes mellitus type 2-continue the sliding scale. Continue Lantus at a lower dose. Uncontrolled hyperglycemia with hemoglobin A1c of 11. Elevated beta hydroxybutyrate acid noted but no acidosis or elevated anion gap. Suspect secondary to
fasting ketoacidosis.. Diabetic nurse PHYSIATRIST following. Blood sugars have improved. No acidosis evident on BMP
Hyperlipidemia-hold statins due to rhabdo.
Nutrition - NPO due to dysphagia -cw IV fluids cautiously
Total time spent on today's encounter was 52 minutes which included time spent in counseling the patient/family regarding diagnosis and treatment plan as listed above, goals of care, and symptom management. Case was discussed with nursing staff,
specialists, and care coordinators/case management. All labs and imaging personally reviewed by me. Remainder the time spent in detailed review of previous records, lab data, imaging, and other medical provider documentation.
Portions of this chart may have been created with voice recognition software. Occasional wrong word or 'sound alike' substitutions may have occurred due to the inherent limitations of voice recognition software.
Anticipated Discharge: > 48 hours
Subjective/Interval History
-
Date of Service: September 10, 2025
Patient is alert and oriented but has a very weak cough. He feels very weak generalized. Could see he is having trouble coughing up phlegm.
Denies any nausea vomiting. He feels hungry. Denies any abdominal pain.
Denies any chest pain. Denies any shortness of breath at rest. He is on oxygen via nasal cannula. Denies fever chills.
Objective Data
-
Labs:
Laboratory Results
09/10/25
03:33
WBC 11.4 H
Hgb 14.3
Hct 45.6
Plt Count 205
Sodium 146 H
Potassium 3.9
Chloride 110 H
Carbon Dioxide 22
BUN 14
Creatinine 0.7
Glucose 149 H
Calcium 8.4
Total Bilirubin 2.7 H
AST 394 H
ALT 477 H
Alkaline Phosphatase 102
Vital Signs:
Vital Signs
Temp Pulse Resp BP Pulse Ox
98.6 F 109 18 146/114 97
09/10/25 10:58 09/10/25 11:00 09/10/25 11:00 09/10/25 10:00 09/10/25 11:15
I&O
09/09/25 09/10/25 09/11/25
06:59 06:59 06:59
Intake Total 192.4 / 192.4 1020 / 1020
Output Total 1035 / 1035 2900 / 2900 1100 / 1100
Balance -842.6 / -842.6 -1880 / -1880 -1100 / -1100
Physical Exam
-
General: No Apparent Distress
Respiratory: Clear to Auscultation (anteriorly) and Non Labored Respirations; Negative Accessory Resp Muscle Use
Cardiac: Regular Rhythm and S1/S2; Negative Tachycardic
GI: Soft
Neuro: AO x 3
Psych: Calm and Confused
Data Reviewed
-
Labs: Labs Reviewed by me
--- NOTE | 2025-09-10 13:13 | W.PN.UPDATE ---
Update Note
Progress Note Update
patient seen chart reviewed. spoke with nursing. mr rodriguez appeared to be very uncomfortablbe when i saw. him. he was coughing. he was requesting water. as per swallowing assessment he is npo. explained this to him and asked nursing to perhaps
swab his mouth. asked him if he preferred that i return tomorrow. at this point do not feel there is much psych can do for him today as clearly he was in no shape to converse. will return in the am
[2025-09-10 13:40] LABS: Glucose - Point of Care 166 mg/dl (70-99)
--- NOTE | 2025-09-10 16:13 | CM ---
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 Patient is + for substance abuse. Patient is encephalopathic as well. PT/OT saw patient and recommend SNF, but not close to being ready and according to their note, will
benefit for being seen again. Case Management to follow up when there is a plan re: his intake of food/ drink. PLAN: SNF vs. Inpatient Drug Rehab vs. Home
[2025-09-10] MEDS: ATIVAN 1 MG IV (18:00)
[2025-09-10 18:21] LABS: Glucose - Point of Care 183 mg/dl (70-99)
--- NOTE | 2025-09-10 19:28 | PTCARENOTE ---
day shift note. see nursing assessment. pt weaned down to 2 liters o2. lasix given per order. diuresed 3300 mls urine in male purewick. pt remains strict npo. agitated at times about not being allowed to have water. climbed oob and ripped iv tubing
x 2. ativan given prn for agitation. mouth care provided.
[2025-09-11] VITALS (14 sets, daily range): BP systolic 115–165; BP diastolic 85–122; BMI 29.4
[2025-09-11] MEDS: ATIVAN 1 MG IV ×2 (00:45→11:04)
[2025-09-11 00:51] LABS: Glucose - Point of Care 233 mg/dl (70-99)
[2025-09-11] MEDS: NOVOLOG FLEXPEN-LOW RESISTANCE 2 UNITS SC ×2 (01:08→12:30)
[2025-09-11] MEDS: D5/0.45%NACL 1000 IV ×2 (01:08→09:17)
--- NOTE | 2025-09-11 01:22 | PTCARENOTE ---
Caring for patient overnight. Pt becoming agitated and states he is 'very frustrated' due to NPO status. Pt agitated and administered PRN Ativan see MAR. Pt pulled out R FA IV site. VAT team placed new site. IVF cont. IV abx cont. ST on the monitor.
Pt on 4L NC, SpO2 95%. Pt desatting to 85% while coughing. Male purewick in place, draining large amounts of clear urine. Bed alarm is on.
[2025-09-11 05:22] LABS: Glucose - Point of Care 185 mg/dl (70-99)
[2025-09-11] MEDS: NOVOLOG FLEXPEN-LOW RESISTANCE 1 UNITS SC ×3 (05:39→23:41)
[2025-09-11] MEDS: UNASYN IV ×4 (05:42→23:05)
[2025-09-11 06:25] LABS: Hematocrit 44.2 % (39.0-52.0); Hemoglobin 14.2 g/dL (13.0-18.0); Mean Corp Hgb Conc. 32.1 g/dL (33.0-37.0); Mean Corpuscular Volume 89.8 fL (80.0-94.0); Platelet Count 234 10^3/uL (130-400); Red Cell Dist. Width 12.7 % (11.5-14.5)
[2025-09-11 06:46] LABS: ALT (SGPT) 326 U/L (0-50); AST (SGOT) 151 U/L (17-59); Albumin 3.0 g/dl (3.5-5.0); Alkaline Phosphatase 88 U/L (38-126); Blood Urea Nitrogen 7 mg/dl (9-20); Calcium 8.4 mg/dl (8.4-10.2); Carbon Dioxide 32 mmol/L (22-30); Chloride 103 mmol/L (98-107); Estimated Creatinine Clearance > 125 ml/min; Glucose 210 mg/dl (70-99); Potassium 3.3 mmol/L (3.5-5.1); Sodium 141 mmol/L (135-145); Total Protein 5.9 g/dl (6.3-8.2); eGFR > 60.00
--- NOTE | 2025-09-11 07:32 | PN.DE.MGMTRT ---
Addendum entered and electronically signed by DEREK Paniagua 09/11/25 15:27:
Pt has been started on tube feeds. Will resume Lantus 15 units BID, 1st dose now, then tomorrow @ 0800 AM
Start NovoLog 5 units Q6 hrs and low corrective
Original Note:
Insulin Management
- -
09/11/2025: Diabetes Management Follow up
60 year old male who was found by his family unresponsive with tongue biting and in fecal matter. Clinical concern so far based on the data points are probable methamphetamine overdose. High suspicion that he might have had a seizure. CT of the
head is negative for any acute findings. PMH DKA, HTN, HLD. Chart review indicates he was taking Farxiga 10mg daily, Lantus 35 units @ HS and NovoLog 10 units AC prior to admission. A1C is 11%, Cr 1, eGFR >60.
Pt is awake alert and oriented, resting in bed, offers no complaints, No family at bedside.
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
Today pt states that he took Basaglar 30 units at bedtime and NovoLog 10 units with meals. He states he has a DexCom but has to set it up.
09/09 Lantus stopped due to hypoglycemia and continued low corrective insulin only. D51/2 started by therapy technician.
09/10 Patient remained NPO due to poor speech eval with aspiration. IVF were stopped. Glucose range was 166 to 183. Fasting glucose was 155. Dr. Morrow, cardiology, started Farxiga 10 mg daily currently on HOLD due to strict NPO. Will continue
corrective insulin only at this time.
Discussed with Nurse. Will cont to follow.
Diabetes History
- -
Type of Diabetes: 2 requiring insulin
Pre-Admission Diabetes Regimen
09/11/25
05:38
Creatinine 0.5 L
Lab Results
Hemoglobin A1c 11.0 % (4.0-5.9) H 09/07/25 03:53
Insulin Pump Settings
IP Diabetes Regimen
09/09/25 09/10/25 09/10/25
12:15 13:26 18:10
Glucose
POC Glucose 107 H 166 H 183 H
09/11/25 09/11/25 09/11/25
00:39 05:09 05:38
Glucose 210 H
POC Glucose 233 H 185 H
Meal type: Breakfast
Patient Education
--- NOTE | 2025-09-11 09:08 | W.PN.CD ---
Addendum entered and electronically signed by Jer Mckenna MD 09/11/25 10:30:
I saw and examined the patient independently, and performed majority of MDM.
The OPERATIONS AND MAINTENANCE TECHNICIAN's note was reviewed and I agree with the note with changes/additions below.
Comment: 60 yo male with PMH of drug abuse, DM, HTN admitted with meth overdose, and found to have acute HF and new cardiomyopathy. SOB better. No chest pain. Exam with RRR, no murmurs, no edema. Tele: ST 110s.
Dysphagia
-currently NPO pending eval
Acute HF
-cont IV lasix, with close monitoring of labs/tele
New cardiomyopathy, severe, EF 25-30%, unknown type
-ischemic eval as outpatient
-currently NPO
-IV lopressor, then eventual Toprol XL and other GDMT when taking PO
-
Original Note:
Today's Communication / Plan
-
Lasix 40mg IV daily, now dose ordered
increase Toprol to 50mg daily
resume Aldactone 25mg daily
daily weights, monitor I&Os
Impression / Plan
-
I/P: 60M with HTN, HLD, and T2DM on insulin presented unresponsive from home, with concern for seizure and methamphetamine overdose. Found to have severely reduced LVEF.
Acute HFrEF, LVEF 27%
- tolerating GDMT with BB (will increase to 50mg daily), SGLT2i, and KAI. Add MRA to help with hypokalemia and monitor
- Etiology of cardiomyopathy is unknown, will consider elective outpatient stress test and HIV testing
- IV Lasix 40mg daily, now dose.
- daily weights, I&O and fluid/sodium restrictions
Abnormal troponin
- Troponin trend 0.084, 0.096, 0.102, 0.106, 0.103
- This is likely in the setting of rhabdomyolysis
- EKG without acute ischemia
- Outpatient ischemic evaluation as above
Hypertension
- GDMT as above, increase Toprol to 50mg daily and monitor
Type 2 diabetes mellitus
- insulin dependent
- History of being uncontrolled with A1c of 15.4% when he was here with DKA in May
Hypercholesterolemia
- Atorvastatin 40 mg on hold in the setting of rhabdomyolysis
- LDL below goal
Change in mental status, resolved
Rhabdomyolysis
- CK 716 -> 940, per primary service, holding Lipitor
Subjective:
Sleeping, easily arounds, denies any complaints
Echo 09/07/2025:
SUMMARY
1. Severe global LV hypokinesis. LVEF estimated 27%.
2. Normal right ventricular size and systolic function.
3. Mild left atrial large meant.
4. Aortic valve sclerosis without stenosis.
5. No prior study available for comparison.
Physical Exam
Vital Signs/Labs
Vital Signs
Temp Pulse Resp BP Pulse Ox
98.7 F 109 21 153/99 97
09/11/25 07:20 09/11/25 06:00 09/11/25 06:00 09/11/25 02:00 09/11/25 06:00
09/10/25 09/11/25 09/12/25
06:59 06:59 06:59
Actual Weight 191 lb 193 lb 9.054 oz
09/11/25 05:38
09/11/25 05:38
PT 17.0 Sec (11.4-14.6) H 09/07/25 03:53
INR 1.35 09/07/25 03:53
APTT 32.9 Sec (23.4-35.0) 09/07/25 03:53
Magnesium 1.9 mg/dl (1.6-2.3) 09/08/25 03:25
Triglycerides 81 mg/dl (10-149) 09/07/25 03:53
LDL Cholesterol, Calc 43 mg/dl 09/07/25 03:53
VLDL Cholesterol, Calc 16 mg/dl (0-30) 09/07/25 03:53
HDL Cholesterol 38 mg/dl 09/07/25 03:53
09/06/25
10:42
Ttg-X-Nyobpcatxdx Pept 9900
Physical Exam
Constitutional: No acute distress
EENT: Anicteric and Moist mucous membranes
Cardiovascular: Rhythm & rate is regular and Pedal edema present (b/l LE)
Respiratory: Respiratory effort normal and Other (diminished b/l bases)
GI: Soft, Non tender and Normal bowel sounds
Neuro/Psych: AO x 3
Other: Skin (warm, dry )
Data Reviewed
-
Date of Service: September 11, 2025
Medical Decision Making: Reviewed Test Results
EKG: Tracing Personally Visualized and interpreted
Echo: Report Reviewed by me
Labs: Labs Reviewed by me
[2025-09-11] MEDS: FARXIGA PO (09:15)
[2025-09-11] MEDS: ZESTRIL PO (09:18)
[2025-09-11] MEDS: POLYTRIM OPHTHALMIC SOLUTION 1 DROP BOTH EYES ×4 (09:20→22:43)
[2025-09-11] MEDS: HEPARIN 5000 UNITS SC ×3 (09:22→23:02)
--- NOTE | 2025-09-11 10:58 | PTOTSP ---
Dysphagia Follow-Up:
Pt continues to demonstrate eventual s/sx of aspiration w/ P.O. trials of single and sequential cup sips of thins and puree tsps. No s/sx of aspiration observed w/ ice chip trials. Recommend NPO w/ ARHP for ice chips sparingly after completion of
oral care.
Recommendations:
1. NPO
2. Non-oral means of medications.
3. ARHP: Ice chips sparingly throughout the day after completion of oral care.
4. Oral care completed 3-4x a day.
5. ST to continue to F/U to trial advancements in diet level.
[2025-09-11] MEDS: NSS (PRESERVATIVE FREE) 0.5 ML IV (11:05)
[2025-09-11] MEDS: LASIX 40 MG IV (11:08)
[2025-09-11] MEDS: LOPRESSOR 2.5 MG IV ×3 (11:16→23:03)
[2025-09-11] MEDS: BACITRACIN OINTMENT 1 APPLIC TOPICAL ×3 (11:17→22:42)
--- NOTE | 2025-09-11 11:39 | W.PN.UPDATE ---
Addendum entered and electronically signed by DEREK Freedman 09/11/25 13:34:
09/11 abd X ray IMPRESSION: Dobbhoff tube has been placed, tip projecting over the right paramedian upper abdomen, within the distal stomach.
tube with adequate placement ok to use. Call back for problems or if dysphagia does not improve for full consult.
Original Note:
Update Note
Progress Note Update
DHT placement left side without difficulty at 65cm without resistance will check X ray to confirm placement with distant sounds with air insufflation.
[2025-09-11 12:41] LABS: Glucose - Point of Care 205 mg/dl (70-99)
--- NOTE | 2025-09-11 13:21 | W.PN.UPDATE ---
Addendum entered and electronically signed by Drew Edwards MD 09/11/25 13:34:
stopped ativan as nursing felt it made patient confused.
Original Note:
Update Note
Progress Note Update
patient seen chart reviewed. mr rodriguez is awake. he was able to give me some history. says he feels terrible. he has been using meth for several years. i asked him where he gets it 'anywhere....[facility]'. he has seen his pcp taken gapentin in the
past for neuropathy felt it helped. he says he is in pain now and asks to take it again and 'something for sleep'. suggested remeron odt 15 mg. he has many cuts on his legs. he cannot tell me how he sustained them. i suspect ivda. lives w mom.
has a son who has four daughters. seemed proud of his four grandkids. while this conversation seemed to indicate mental status was much improved he also told me it was 1985....even when i asked him to guess again his guess was not much better. he
was oriented to person and to place and spoke coherently . would try the gabapentin anyway despite mental status and just keep an eye as he did seem to be in some discomfort from neuropathy. he did tell me he would consider rehab which would be
appropriate. i spoke to nursing he has had some bad moments where she fears he will pull out iv and tubes. she wonders if the ativan given today has caused him to become 'loopy' . he has mitts right now. .would try to see if gabapentin helps. if
not will leave a prn of risperdal concentrate. will follow
--- NOTE | 2025-09-11 13:38 | PTCARENOTE ---
Received this am was cooperative- he is very hungry. Speech called and came to eval- remaining strict NPO. Ripped IV tubing in half again. Got oob to chair, agreeable to dobhoff placement and MRI. Vat team to place new IV- IV Ativan provided.
Dobhoff placed at marker 70-by Leonor Astorga SHAKER OUT- xray confirmed placement - guide wire removed.
Again ripped apart IV tubing - back to bed and mitts placed 4 siderails.
Found mitts offx2 and the 2nd time oob trying to drink from faucet. All monitors replaced and rehooked up to male external catheter. Wrist restraints applied- education provided. Bed alarm on. D/w Dr. Petersen- orders placed by DR. Summers.
[2025-09-11] MEDS: NEURONTIN 300 MG TUBE ×3 (14:26→22:42)
[2025-09-11] MEDS: RISPERDAL ORAL SOLUTION 1 MG TUBE ×2 (14:27→23:06)
--- NOTE | 2025-09-11 14:37 | W.PN.HOSP.TC ---
Today's Communication/Plan
-
Start on tube feeds
Restraints due to agitation
MRI of the brain
Assessment / Plan
Assessment / Plan
Unresponsive episode-patient was found in fecal matter and he has a tongue bite. Clinical concern so far based on the data points are methamphetamine probably overdose. CT of the head is negative for any acute findings.
High suspicion that he might have had a seizure.
Patient was without agitation till today. Off of Precedex.
Neurology now has signed off and did not see commendation for further imaging.
Hold Benzos for fear of paradoxical agitation.
Due to new persistent dysphagia , will obtain MRI brain to rule out any acute intracranial abnormalities.
Restlessness/agitation-secondary to TME-suspect secondary to drug use-improved and off of Precedex.
Renewed agiation which is secondary to restrictions on oral intake. He wants to have a drink of water desperately. Failed swallow tests.
Drug abuse-patient positive for methamphetamine/amphetamine.-Case management consult for B care referral
History of mood dysfunction-patient claims he ran out of medication. Appt psychiatry input.
Abnormal troponins-EKG shows no evidence of acute ischemic changes. Suspect nonischemic myocardial injury. Cardiology following
New cardiomyopathy-unclear etiology. Ischemia eval per cardiology
Acute heart failure with reduced EF-patient echo showed EF of 27%. CW diuretics per cards. Started on GDMT medication-lisinopril, metoprolol, spironolactone, Farxiga.
Hypotension with shock required low-dose vasopressors. Creatinine is okay. Doubt sepsis-afebrile, white count normal and is on antibiotics for presumed aspiration pneumonitis and pneumonia.
Off of vasopressors.
Right lobe consolidation-with unresponsiveness concern for aspiration pneumonitis/pneumonia- Blood cultures are negative so far.
Low-grade fever, chest x-ray raising possibility of right suprahilar region infiltrate, rising white count, no ongoing cough with productive phlegm I would favor antibiotic coverage for pneumonic process. Continue with IV Unasyn. Normalized white
count.
Dilated small bowel loops on CT-abdomen is nondistended and soft. Limited exam without oral contrast. Denies any abdominal pain, nausea or vomiting.
Urinary bladder thickening on the CT-UA negative for infection probably secondary to underdistention
Elevated CPK-possibly secondary to rhabdo versus seizures
Acute transaminitis-no gallbladder disease on CT. Liver was homogenous raising concern for fatty infiltration. No cholestasis picture. Suspect may be related to rhabdo. With hypotension and shock liver could be in play.
Improving.
Unconjugated hyperbilirubinemia-direct bilirubin normal.
Diabetes mellitus type 2-continue the sliding scale. Continue Lantus at a lower dose. Uncontrolled hyperglycemia with hemoglobin A1c of 11. Elevated beta hydroxybutyrate acid noted but no acidosis or elevated anion gap. Suspect secondary to
fasting ketoacidosis.. Diabetic nurse SIZING MACHINE TENDER following. Blood sugars have improved. No acidosis evident on BMP
Hyperlipidemia-hold statins due to rhabdo.
Nutrition - NPO due to dysphagia -Dobbhoff in now - start on TF
Portions of this chart may have been created with voice recognition software. Occasional wrong word or 'sound alike' substitutions may have occurred due to the inherent limitations of voice recognition software.
Anticipated Discharge: > 48 hours
Subjective/Interval History
-
Date of Service: September 11, 2025
Patient has been trying to pull IV lines and trying to get out of the bed.
He has got an NG tube placed on now and restraints.
Is alert and oriented to place month and the year. He wants to have water and keeps requesting for it.
Denies shortness of breath. On room air. No chest pain. No nausea vomiting.
Objective Data
-
Labs:
Laboratory Results
09/11/25
05:38
WBC 9.2
Hgb 14.2
Hct 44.2
Plt Count 234
Sodium 141
Potassium 3.3 L
Chloride 103
Carbon Dioxide 32 H
BUN 7 L
Creatinine 0.5 L
Glucose 210 H
Calcium 8.4
Total Bilirubin 1.7 H D
AST 151 H
ALT 326 H
Alkaline Phosphatase 88
Vital Signs:
Vital Signs
Temp Pulse Resp BP Pulse Ox
98 F 108 19 164/105 96
09/11/25 11:36 09/11/25 14:00 09/11/25 14:00 09/11/25 12:15 09/11/25 14:00
I&O
09/10/25 09/11/25 09/12/25
06:59 06:59 06:59
Intake Total 1020 / 1020 500 / 500
Output Total 2900 / 2900 4300 / 4300 1000 / 1000
Balance -1880 / -1880 -3800 / -3800 -1000 / -1000
Physical Exam
-
General: Comfortable
Respiratory: Clear to Auscultation (anteriorly) and Non Labored Respirations; Negative Accessory Resp Muscle Use
Cardiac: Regular Rhythm, S1/S2 and Tachycardic
GI: Soft, Nontender, Nondistended and Normal Bowel Sounds
Neuro: AO x 3
Psych: Agitated
Data Reviewed
-
Labs: Labs Reviewed by me
[2025-09-11] MEDS: KCL ELIXIR 40 MEQ TUBE (15:52)
--- NOTE | 2025-09-11 16:00 | PTCARENOTE ---
Remains on 4L NC- Sao2 93%, occasionally dips to 82% with some gagging, non prod coughing, face gets dusky purple recovers quickly in a minute or so.
[2025-09-11] MEDS: LANTUS 0.15 UNITS SC (17:17)
[2025-09-11] MEDS: NOVOLOG FLEXPEN 5 UNITS SC ×2 (17:22→23:06)
[2025-09-11 17:27] LABS: Glucose - Point of Care 186 mg/dl (70-99)
--- NOTE | 2025-09-11 19:45 | PTCARENOTE ---
Pt received at beginning of shift resting in bed. AAOx2. Drowsy. B/L soft limb wrist restraints remain on. Skin intact. Answering questions appropriately. VSS. Afebrile. POX 95% on 4L NC. Lungs course. Occasional wash driller cough noted. Pt denies pain or
discomfort. External urinary device intact. So far urine canister emptied for 1100mls yellow urine. Left dobhoff at 70cm. Placement verified. TF's started as ordered at 10mls/hr with 25ml/hr water flushes. HOB at 30 degrees. Rest of assessment as
documented. Call pichardo within reach. Will continue to monitor.
[2025-09-11] MEDS: REMERON 15 MG TUBE (22:43)
[2025-09-11 23:50] LABS: Glucose - Point of Care 160 mg/dl (70-99)
[2025-09-12] VITALS (13 sets, daily range): BP systolic 116–151; BP diastolic 76–102; BMI 26.1
[2025-09-12 03:58] LABS: Hematocrit 43.9 % (39.0-52.0); Hemoglobin 14.3 g/dL (13.0-18.0); Mean Corp Hgb Conc. 32.6 g/dL (33.0-37.0); Mean Corpuscular Volume 88.3 fL (80.0-94.0); Platelet Count 228 10^3/uL (130-400); Red Cell Dist. Width 12.7 % (11.5-14.5)
[2025-09-12 04:20] LABS: ALT (SGPT) 230 U/L (0-50); AST (SGOT) 69 U/L (17-59); Albumin 2.8 g/dl (3.5-5.0); Alkaline Phosphatase 78 U/L (38-126); Blood Urea Nitrogen 7 mg/dl (9-20); Calcium 8.5 mg/dl (8.4-10.2); Carbon Dioxide 38 mmol/L (22-30); Chloride 100 mmol/L (98-107); Estimated Creatinine Clearance > 125 ml/min; Glucose 165 mg/dl (70-99); Potassium 3.1 mmol/L (3.5-5.1); Sodium 141 mmol/L (135-145); Total Protein 5.7 g/dl (6.3-8.2); eGFR > 60.00
--- NOTE | 2025-09-12 04:54 | PTCARENOTE ---
No change throughout shift. Restraints remain in place as ordered. K+ this am 3.1. Priya REED TT'd and order entered for K+ Stew. VSS. Will continue to monitor.
[2025-09-12] MEDS: UNASYN IV ×4 (05:00→23:26)
[2025-09-12] MEDS: LOPRESSOR 2.5 MG IV ×4 (05:01→23:28)
[2025-09-12 05:27] LABS: Glucose - Point of Care 165 mg/dl (70-99)
[2025-09-12] MEDS: NOVOLOG FLEXPEN 5 UNITS SC ×4 (05:29→23:32)
[2025-09-12] MEDS: KCL 270 MEQ IV (05:29)
[2025-09-12] MEDS: NOVOLOG FLEXPEN-LOW RESISTANCE 1 UNITS SC ×2 (05:29→23:34)
[2025-09-12] MEDS: NEURONTIN 300 MG TUBE ×3 (08:11→23:31)
[2025-09-12] MEDS: ZESTRIL 20 MG PO (08:13)
[2025-09-12] MEDS: FARXIGA 10 MG PO (08:13)
[2025-09-12] MEDS: ALDACTONE 25 MG PO (08:13)
[2025-09-12] MEDS: HEPARIN 5000 UNITS SC ×3 (08:13→23:27)
[2025-09-12] MEDS: LANTUS 0.15 UNITS SC ×2 (08:14→23:32)
[2025-09-12] MEDS: LASIX 40 MG IV (08:14)
[2025-09-12] MEDS: BACITRACIN OINTMENT 1 APPLIC TOPICAL ×3 (08:17→23:29)
[2025-09-12] MEDS: POLYTRIM OPHTHALMIC SOLUTION 1 DROP BOTH EYES ×4 (08:18→23:31)
--- NOTE | 2025-09-12 08:56 | W.PN.HOSP.TC ---
Addendum entered and electronically signed by Omar Summers MD 09/12/25 16:25:
Acute hypoxic respiratory failure
Hypotension requiring pressors indicative of shock -unable to determine the etiology
Original Note:
Today's Communication/Plan
-
Continue with tube feeds.
Continue speech therapy evaluation.
Continue GDMT medication as tolerated. Continue with diuretics.
Replete potassium. MRI of the brain when patient calmer.
Assessment / Plan
Assessment / Plan
Unresponsive episode-patient was found in fecal matter and he has a tongue bite. Clinical concern so far based on the data points are methamphetamine probably overdose. CT of the head is negative for any acute findings.
High suspicion that he might have had a seizure.
Off of Precedex.
Neurology now has signed off and did not see commendation for further imaging.
Hold Benzos for fear of paradoxical agitation.
Due to new persistent dysphagia , will obtain MRI brain to rule out any acute intracranial abnormalities.
Restlessness/agitation-secondary to TME-suspect secondary to drug use-improved and off of Precedex.
Renewed agiation-now on as needed Risperdal-improved agitation
Drug abuse-patient positive for methamphetamine/amphetamine.-Case management consult for B care referral
History of mood dysfunction-patient claims he ran out of medication. Appt psychiatry input. Currently on mirtazapine and gabapentin
Abnormal troponins-EKG shows no evidence of acute ischemic changes. Suspect nonischemic myocardial injury. Cardiology following
New cardiomyopathy-unclear etiology. Ischemia eval per cardiology
Acute heart failure with reduced EF-patient echo showed EF of 27%. CW diuretics per cards. Started on GDMT medication-lisinopril, metoprolol, spironolactone, Farxiga.
Hypotension with shock required low-dose vasopressors. Creatinine is okay. Doubt sepsis-afebrile, white count normal and is on antibiotics for presumed aspiration pneumonitis and pneumonia.
Off of vasopressors.
Right lobe consolidation-with unresponsiveness concern for aspiration pneumonitis/pneumonia- Blood cultures are negative so far.
Low-grade fever, chest x-ray raising possibility of right suprahilar region infiltrate, rising white count, no ongoing cough with productive phlegm I would favor antibiotic coverage for pneumonic process. Continue with IV Unasyn for 1 more day.
Normalized white count.
Dilated small bowel loops on CT-abdomen is nondistended and soft. Limited exam without oral contrast. Denies any abdominal pain, nausea or vomiting.
Urinary bladder thickening on the CT-UA negative for infection probably secondary to underdistention
Hypokalemia-replete
Elevated CPK-possibly secondary to rhabdo versus seizures
Acute transaminitis-no gallbladder disease on CT. Liver was homogenous raising concern for fatty infiltration. No cholestasis picture. Suspect may be related to rhabdo. With hypotension and shock liver could be in play.
Improving.
Unconjugated hyperbilirubinemia-direct bilirubin normal.
Diabetes mellitus type 2-continue the sliding scale. Continue Lantus at a lower dose. Uncontrolled hyperglycemia with hemoglobin A1c of 11. Elevated beta hydroxybutyrate acid noted but no acidosis or elevated anion gap. Suspect secondary to
fasting ketoacidosis.. Diabetic nurse MILL SUPERVISOR following. Blood sugars have improved. No acidosis evident on BMP
Hyperlipidemia-hold statins due to rhabdo.
Nutrition - NPO due to dysphagia -Dobbhoff in now - started on TF. Continue with speech therapy evaluation
Portions of this chart may have been created with voice recognition software. Occasional wrong word or 'sound alike' substitutions may have occurred due to the inherent limitations of voice recognition software.
Anticipated Discharge: > 48 hours
Subjective/Interval History
-
Date of Service: September 12, 2025
' I am hungry' ' I am thirsty'
Calmer in demeanor today
Alert and oriented. No agitation.
Denies shortness of breath. No respiratory distress.
Denies any chest pain. No nausea or vomiting. No lightheadedness.
Objective Data
-
Labs:
Laboratory Results
09/12/25
03:43
WBC 6.7
Hgb 14.3
Hct 43.9
Plt Count 228
Sodium 141
Potassium 3.1 L
Chloride 100
Carbon Dioxide 38 H
BUN 7 L
Creatinine 0.6 L
Glucose 165 H
Calcium 8.5
Total Bilirubin 1.0
AST 69 H
ALT 230 H
Alkaline Phosphatase 78
Vital Signs:
Vital Signs
Temp Pulse Resp BP Pulse Ox
97.9 F 106 17 131/77 95
09/12/25 07:00 09/12/25 08:14 09/12/25 06:00 09/12/25 08:14 09/12/25 06:00
I&O
09/11/25 09/12/25 09/13/25
06:59 06:59 05:59
Intake Total 500 / 500 1405 / 1405
Output Total 4300 / 4300 2800 / 2800
Balance -3800 / -3800 -1395 / -1395
Physical Exam
-
General: Comfortable
Respiratory: Clear to Auscultation (Anteriorly) and Non Labored Respirations; Negative Accessory Resp Muscle Use
Cardiac: Regular Rhythm, S1/S2 and Tachycardic
GI: Soft, Nontender, Nondistended and Normal Bowel Sounds
Neuro: AO x 3 and No Motor Deficits; Negative Slurred Speech or Facial Droop
Psych: Calm; Negative Confused or Agitated
Data Reviewed
-
Labs: Labs Reviewed by me
--- NOTE | 2025-09-12 10:28 | W.PN.CD ---
Today's Communication / Plan
-
Patient tolerating current GDMT for cardiomyopathy. Respiratory status currently stable. Patient still with NG tube. Also in restraints.
Continue current medical therapy
Monitor labs including potassium and renal function.
Impression / Plan
-
I/P: 60M with HTN, HLD, and T2DM on insulin presented unresponsive from home, with concern for seizure and methamphetamine overdose. Found to have severely reduced LVEF.
Acute HFrEF, LVEF 27%
- tolerating GDMT with BB , SGLT2i, and KAI. Add MRA. Monitor potassium and renal function.
- Etiology of cardiomyopathy is unknown, will consider elective outpatient stress test and HIV testing
- IV Lasix 40mg daily, now dose.
- daily weights, I&O and fluid/sodium restrictions
Abnormal troponin
- Troponin trend 0.084, 0.096, 0.102, 0.106, 0.103
- This is likely in the setting of rhabdomyolysis
- EKG without acute ischemia
- Outpatient ischemic evaluation as above
Hypertension
- Continue to monitor on current medical therapy
Type 2 diabetes mellitus
- insulin dependent
- History of being uncontrolled with A1c of 15.4% when he was here with DKA in May
Hypercholesterolemia
- Atorvastatin 40 mg on hold in the setting of rhabdomyolysis
- LDL below goal
Change in mental status, resolved
Rhabdomyolysis
- CK 716 -> 940, per primary service, holding Lipitor
Subjective:
Sleeping, easily arounds, denies any complaints
Echo 09/07/2025:
SUMMARY
1. Severe global LV hypokinesis. LVEF estimated 27%.
2. Normal right ventricular size and systolic function.
3. Mild left atrial large meant.
4. Aortic valve sclerosis without stenosis.
5. No prior study available for comparison.
Physical Exam
Vital Signs/Labs
Vital Signs
Temp Pulse Resp BP Pulse Ox
97.9 F 105 15 131/77 98
09/12/25 07:00 09/12/25 09:00 09/12/25 09:00 09/12/25 08:14 09/12/25 10:13
09/11/25 09/12/25 09/13/25
06:59 06:59 05:59
Actual Weight 87.8 kg 77.706 kg
09/12/25 03:43
09/12/25 03:43
PT 17.0 Sec (11.4-14.6) H 09/07/25 03:53
INR 1.35 09/07/25 03:53
APTT 32.9 Sec (23.4-35.0) 09/07/25 03:53
Magnesium 1.9 mg/dl (1.6-2.3) 09/08/25 03:25
Triglycerides 81 mg/dl (10-149) 09/07/25 03:53
LDL Cholesterol, Calc 43 mg/dl 09/07/25 03:53
VLDL Cholesterol, Calc 16 mg/dl (0-30) 09/07/25 03:53
HDL Cholesterol 38 mg/dl 09/07/25 03:53
09/06/25
10:42
Jfv-[id number]-[id number] Pept 9900
Physical Exam
Constitutional: No acute distress
Cardiovascular: Rhythm & rate is regular
Respiratory: Wheeze Absent and Rhonchi Absent
GI: Soft and Non tender
Neuro/Psych: Other (Initially sleeping but arousable to voice.)
Data Reviewed
-
Date of Service: September 12, 2025
Medical Decision Making: Reviewed Test Results
X-Ray/CT/US/MRI/NUC/PET: Report Reviewed by me
Medical Tests (PFT, Pathology etc): Report Reviewed by me
Labs: Labs Reviewed by me
[2025-09-12 12:17] LABS: Glucose - Point of Care 138 mg/dl (70-99)
[2025-09-12] MEDS: NOVOLOG FLEXPEN-LOW RESISTANCE SC ×2 (12:18→17:48)
--- NOTE | 2025-09-12 13:46 | W.PN.UPDATE ---
Update Note
Progress Note Update
Pt seen, reviewed with nursing staff, who reports pt is much calmer today. Pt was able to cooperate with brain MRI. Pt was pulling at tubes yesterday, required soft restraints, received prn Risperidone x 2 in the pm. Pt started Remeron 15 mg HS
last night. Pt calm, answering, with eyes closed. Pt to be re-assessed for swallowing function, continues to have dohoff tube for now.
Imp: TME, multifactorial, with agitation, improving. Methamphetamine use, considering rehab.
Rec: continue Gabapentin, Remeron, prn Risperidone. Will follow, encourage pt to consider drug rehab when medically stable.
--- NOTE | 2025-09-12 15:05 | PTOTSP ---
ST Follow-Up
Although pt appears to be improving in terms of his reduced coughing frequency at rest and with PO intake, pt continues to present with s/s of aspiration with PO intake within the context of a recent FEES that was significant for aspiration with
insufficient airway protection.
Although MRI of brain was negative for acute intracranial abnormalities, there is some research that has suggested a correlation between chronic methamphetamine use and subsequent neurological changes/impairments that could impair swallowing that
could be at play here. Would defer to neurology as to whether they would entertain this hypothesis based on the pt's current clinical presentation and MRI results.
Recommendations:
- NPO with nutrition, hydration, and meds via dobhoff tube until a VFSS/FEES can be repeated on Sunday.
- Continue with general aspiration/reflux precautions.
- Pt may continue to have ARHP - seldom ice chips with supervision AFTER oral care has been completed.
[2025-09-12 17:57] LABS: Glucose - Point of Care 126 mg/dl (70-99)
--- NOTE | 2025-09-12 18:10 | PTCARENOTE ---
Rec'd pt this AM. Pt lethargic and sleepy first half of shift. Able to tolerate MRI. Repeatedly asking to eat and drink, frequent education regarding aspiration risk and repeated failed speech evaluations. Pt continues to make efforts to get OOB,
get water, pull at tubes and wires, restraints on. Brother visited pt and took off his restraint and gave him water after being told pt is NPO. RN did not find this out until right after brother left. RN educated pt on the risk of this bevavior. Pt
did void almost 4L of urine today. O2 remains on 2 to 4L NC.
--- NOTE | 2025-09-12 18:23 | PTCARENOTE ---
Pt with copious amount of urine output over 3L this shift. Updated Dr. Summers
--- NOTE | 2025-09-12 20:22 | PTCARENOTE ---
Pt received at beginning of shift resting be. AAOx3. Continues to request water. Explained to pt need to not eating or drink anything at this time. Explained received nutrition from TF through tube in his nose. Pt without response. Denies pain or
discomfort. Restraints remain on at this time as ordered. Left dobhoff at 70cm. TF infusing at goal at this time 50mls/hr with 25ml/hr water flush. Male external catheter remains on and working. VSS. Afebrile. SR/ST on CM. POX 94% on 2L NC. Neuro's
as documented unchanged. Rest of assessment as documented. Call pichardo remains within reach. Will continue to monitor.
[2025-09-12] MEDS: REMERON 15 MG TUBE (23:31)
[2025-09-12 23:45] LABS: Glucose - Point of Care 152 mg/dl (70-99)
[2025-09-13] VITALS (16 sets, daily range): BP systolic 122–158; BP diastolic 86–105; BMI 24.7
--- NOTE | 2025-09-13 01:37 | PTCARENOTE ---
Pt pulling off external male catheter and condom cath when placed. Incontinent grossly large amount urine. Voids 4-5L per shift. Restraints renewed and mitts added. Pt received 2nd CHG bath and all linens changed again. Pt states he won't pull
anything off but pulls off cardiac leads and pox continually. Restraints on as ordered. Call pichardo within reach. Will continue to monitor.
[2025-09-13 03:31] LABS: Hematocrit 47.5 % (39.0-52.0); Hemoglobin 15.5 g/dL (13.0-18.0); Mean Corp Hgb Conc. 32.6 g/dL (33.0-37.0); Mean Corpuscular Volume 88.8 fL (80.0-94.0); Platelet Count 240 10^3/uL (130-400); Red Cell Dist. Width 12.8 % (11.5-14.5)
[2025-09-13 03:55] LABS: Blood Urea Nitrogen 11 mg/dl (9-20); Calcium 9.6 mg/dl (8.4-10.2); Carbon Dioxide 40 mmol/L (22-30); Chloride 98 mmol/L (98-107); Estimated Creatinine Clearance 109 ml/min; Glucose 212 mg/dl (70-99); Potassium 3.1 mmol/L (3.5-5.1); Sodium 140 mmol/L (135-145); eGFR > 60.00
[2025-09-13] MEDS: UNASYN IV ×2 (05:23→12:15)
[2025-09-13] MEDS: LOPRESSOR 2.5 MG IV ×3 (05:23→17:19)
[2025-09-13 05:49] LABS: Glucose - Point of Care 172 mg/dl (70-99)
[2025-09-13] MEDS: KCL 270 MEQ IV (05:54)
[2025-09-13] MEDS: NOVOLOG FLEXPEN 5 UNITS SC (05:55)
[2025-09-13] MEDS: NOVOLOG FLEXPEN-LOW RESISTANCE 1 UNITS SC ×2 (05:56→12:20)
--- NOTE | 2025-09-13 07:50 | PTCARENOTE ---
RN entered room and observed patients left mitt restraint removed and dobhoff pulled out. Patient is verbally and physically aggressive with nursing staff at this time. Notified Dr. Summers. Texted Psych for recommendations. Patient has bilateral
wrist and mitts applied as per doctors orders. Lantus held as per discussion with Dr. Summers.
[2025-09-13] MEDS: ALDACTONE PO (08:20)
[2025-09-13] MEDS: FARXIGA PO (08:20)
[2025-09-13] MEDS: NEURONTIN TUBE ×3 (08:21→21:06)
[2025-09-13] MEDS: LANTUS SC (08:21)
[2025-09-13] MEDS: ZESTRIL PO (08:22)
[2025-09-13] MEDS: POLYTRIM OPHTHALMIC SOLUTION BOTH EYES ×3 (08:22→17:41)
[2025-09-13] MEDS: BACITRACIN OINTMENT TOPICAL ×2 (08:23→17:41)
[2025-09-13] MEDS: BACITRACIN OINTMENT 1 APPLIC TOPICAL ×2 (08:30→23:14)
[2025-09-13] MEDS: HEPARIN 5000 UNITS SC ×3 (08:30→23:13)
[2025-09-13] MEDS: LASIX 40 MG IV (08:31)
--- NOTE | 2025-09-13 09:52 | W.PN.UPDATE ---
Update Note
Progress Note Update
Pt seen, reviewed with nursing staff. Pt became agitated again, pulled his dobhoff tube despite being in soft wrist restraints. Pt resting in bed with eyes closed, not physically agitated at present. When asked, pt is angry and loud, c/o not
having eaten or drank in 4 days. After given education, pt agreed to try a sublingual med for agitation. Pt is NPO due to failing swallowing eval. Pt accepted some water via sponge swab. No overt signs of psychosis. Staff is concerned about
risks of Haldol. IV or IM choices are very limited for agitation. Pt noted to be more confused after Ativan previously. Pt aware he is in [facility]; sensorium appears mostly intact.
Imp: TME, multifactorial, improving, with intermittent agitation. Adjustment d/o, with behavior disturbance. Methamphetamine use, considering rehab.
Rec: Will try Zyprexa Zydis and follow response. Will continue Gabapentin, Remeron, prn Risperidone. Will follow, encourage pt to consider drug rehab when medically stable.
[2025-09-13] MEDS: ZYPREXA ZYDIS (ORALLY DISINTEGRATING) 5 MG PO ×3 (10:04→19:30)
--- NOTE | 2025-09-13 10:32 | PTCARENOTE ---
Patient is now calm and cooperative after Zyprexa dose given, discussed behavior with Dr. Ivan. Patient was bathed and oral care provided. Patient continues to remove mitts so only wrist restraints applied a this time. Speech is coming to
reevaluate.
--- NOTE | 2025-09-13 10:55 | W.PN.HOSP.TC ---
Today's Communication/Plan
-
Speech eval pending. Start on a diet if cleared. Start on his oral medications if cleared.
IV potassium rider
Assessment / Plan
Assessment / Plan
Unresponsive episode-patient was found in fecal matter and he has a tongue bite. Clinical concern so far based on the data points are methamphetamine probably overdose. CT of the head is negative for any acute findings.
High suspicion that he might have had a seizure.
Off of Precedex.
Neurology now has signed off and did not see commendation for further imaging.
Hold Benzos for fear of paradoxical agitation.
Due to new persistent dysphagia , MRI brain was obtained which showed no evidence of acute intracranial abnormalities..
Restlessness/agitation-secondary to TME-suspect secondary to drug use-improved and off of Precedex.
Renewed agiation-now on as needed Risperdal-improved agitation. Patient's agitation is more due to n.p.o. status.
Drug abuse-patient positive for methamphetamine/amphetamine.-Case management consult for B care referral
History of mood dysfunction-patient claims he ran out of medication. Appt psychiatry input. Currently on mirtazapine and gabapentin
Abnormal troponins-EKG shows no evidence of acute ischemic changes. Suspect nonischemic myocardial injury. Cardiology following
New cardiomyopathy-unclear etiology. Ischemia eval per cardiology
Acute heart failure with reduced EF-patient echo showed EF of 27%. CW diuretics per cards. Started on GDMT medication-lisinopril, metoprolol, spironolactone, Farxiga.
Hypotension with shock required low-dose vasopressors. Creatinine is okay. Doubt sepsis-afebrile, white count normal and is on antibiotics for presumed aspiration pneumonitis and pneumonia.
Off of vasopressors.
Right lobe consolidation-with unresponsiveness concern for aspiration pneumonitis/pneumonia- Blood cultures are negative so far.
Low-grade fever, chest x-ray raising possibility of right suprahilar region infiltrate, rising white count, no ongoing cough with productive phlegm I would favor antibiotic coverage for pneumonic process. Continue with IV Unasyn for 1 more day.
Normalized white count.
Dilated small bowel loops on CT-abdomen is nondistended and soft. Limited exam without oral contrast. Denies any abdominal pain, nausea or vomiting.
Urinary bladder thickening on the CT-UA negative for infection probably secondary to underdistention
Hypokalemia-replete
Elevated CPK-possibly secondary to rhabdo versus seizures
Acute transaminitis-no gallbladder disease on CT. Liver was homogenous raising concern for fatty infiltration. No cholestasis picture. Suspect may be related to rhabdo. With hypotension and shock liver could be in play.
Improving.
Unconjugated hyperbilirubinemia-direct bilirubin normal.
Diabetes mellitus type 2-continue the sliding scale. Continue Lantus at a lower dose. Uncontrolled hyperglycemia with hemoglobin A1c of 11. Elevated beta hydroxybutyrate acid noted but no acidosis or elevated anion gap. Suspect secondary to
fasting ketoacidosis.. Diabetic nurse ARCHITECTURAL ENGINEER following. Blood sugars have improved. No acidosis evident on BMP
Hyperlipidemia-hold statins due to rhabdo.
Nutrition - NPO due to dysphagia -Dobbhoff in now - started on TF. Patient pulled out Dobbhoff today. He looks better today. Obtain speech eval and start on a diet if he passes swallow testing at bedside.
Discussed with RN
Portions of this chart may have been created with voice recognition software. Occasional wrong word or 'sound alike' substitutions may have occurred due to the inherent limitations of voice recognition software.
Anticipated Discharge: > 48 hours
Subjective/Interval History
-
Date of Service: September 13, 2025
Patient got agitated because he is not allowed to eat or drink and pulled the NG tube.
He is now alert and calm. No agitation. He is eager to eat and drink. He feels hungry. Denies nausea vomiting. No abdominal pain.
Denies chest pain or shortness of breath.
Objective Data
-
Labs:
Laboratory Results
09/13/25
03:13
WBC 6.7
Hgb 15.5
Hct 47.5
Plt Count 240
Sodium 140
Potassium 3.1 L
Chloride 98
Carbon Dioxide 40 H
BUN 11
Creatinine 0.7
Glucose 212 H
Calcium 9.6
Vital Signs:
Vital Signs
Temp Pulse Resp BP Pulse Ox
99.3 F 101 11 123/89 93
09/13/25 03:41 09/13/25 08:31 09/13/25 08:00 09/13/25 08:31 09/13/25 07:59
I&O
09/12/25 09/13/25 09/14/25
06:59 05:59 06:59
Intake Total 1405 / 1405 1880 / 1880
Output Total 2800 / 2800 5050 / 5050
Balance -1395 / -1395 -3170 / -3170
Physical Exam
-
General: No Apparent Distress
HEENT: Moist Mucous Membranes
Respiratory: Clear to Auscultation (Anteriorly) and Non Labored Respirations; Negative Accessory Resp Muscle Use
Cardiac: Regular Rhythm, S1/S2 and Tachycardic
GI: Soft and Nontender
Neuro: AO x 3
Psych: Calm; Negative Agitated
Data Reviewed
-
MRI: Report Reviewed by me (MRI of the brain)
Labs: Labs Reviewed by me
--- NOTE | 2025-09-13 11:17 | W.PN.CD ---
Today's Communication / Plan
-
Respiratory status appears stable. Patient with hypokalemia and received IV replacement this morning.
Check follow-up renal profile
Reduce Lasix to 20 mg IV daily and then transition to oral when able
GDMT limited since patient pulled out feeding tube. Placed back on oral meds when able
Treatment of hypokalemia as directed by hospitalist
Impression / Plan
-
I/P: 60M with HTN, HLD, and T2DM on insulin presented unresponsive from home, with concern for seizure and methamphetamine overdose. Found to have severely reduced LVEF.
Acute HFrEF, LVEF 27%
- tolerating GDMT with BB , SGLT2i, and KAI. Add MRA. But then patient pulled out feeding tube currently not getting oral meds will be getting IV beta-taran. Transition back to oral meds when able.
- Etiology of cardiomyopathy is unknown, will consider elective outpatient stress test and HIV testing
- IV Lasix 40mg daily, now dose.
- daily weights, I&O and fluid/sodium restrictions
Abnormal troponin
- Troponin trend 0.084, 0.096, 0.102, 0.106, 0.103
- This is likely in the setting of rhabdomyolysis
- EKG without acute ischemia
- Outpatient ischemic evaluation as above
Hypertension
- Continue to monitor on current medical therapy
Type 2 diabetes mellitus
- insulin dependent
- History of being uncontrolled with A1c of 15.4% when he was here with DKA in May
Hypercholesterolemia
- Atorvastatin 40 mg on hold in the setting of rhabdomyolysis
- LDL below goal
Change in mental status, resolved
Rhabdomyolysis
- CK 716 -> 940, per primary service, holding Lipitor
Subjective:
Sleeping, easily arounds, denies any complaints
Echo 09/07/2025:
SUMMARY
1. Severe global LV hypokinesis. LVEF estimated 27%.
2. Normal right ventricular size and systolic function.
3. Mild left atrial large meant.
4. Aortic valve sclerosis without stenosis.
5. No prior study available for comparison.
Physical Exam
Vital Signs/Labs
Vital Signs
Temp Pulse Resp BP Pulse Ox
99.3 F 101 11 123/89 93
09/13/25 03:41 09/13/25 08:31 09/13/25 08:00 09/13/25 08:31 09/13/25 07:59
09/12/25 09/13/25 09/14/25
06:59 05:59 06:59
Actual Weight 77.706 kg 73.8 kg
09/13/25 03:13
09/13/25 03:13
PT 17.0 Sec (11.4-14.6) H 09/07/25 03:53
INR 1.35 09/07/25 03:53
APTT 32.9 Sec (23.4-35.0) 09/07/25 03:53
Magnesium 1.9 mg/dl (1.6-2.3) 09/08/25 03:25
Triglycerides 81 mg/dl (10-149) 09/07/25 03:53
LDL Cholesterol, Calc 43 mg/dl 09/07/25 03:53
VLDL Cholesterol, Calc 16 mg/dl (0-30) 09/07/25 03:53
HDL Cholesterol 38 mg/dl 09/07/25 03:53
09/06/25
10:42
Syr-C-[id number] Pept 9900
Physical Exam
Constitutional: No acute distress and Other (Following commands more alert today still in restraints)
Cardiovascular: Rhythm & rate is regular
GI: Soft
Neuro/Psych: Alert
Data Reviewed
-
Date of Service: September 13, 2025
Medical Decision Making: Reviewed Test Results
Echo: Report Reviewed by me
Medical Tests (PFT, Pathology etc): Report Reviewed by me
Labs: Labs Reviewed by me
[2025-09-13] MEDS: NOVOLOG FLEXPEN SC (12:14)
[2025-09-13 12:19] LABS: Glucose - Point of Care 168 mg/dl (70-99)
--- NOTE | 2025-09-13 14:05 | PTCARENOTE ---
Patient is for speech evaluation, discussed with Dr. Summers. Insulin doses changed/ held due to lack of dobhoff tube, NPO status. Patient continues to have outbursts, wont cooperate for Dobhoff placement at this time. Notified Dr. Summers.
[2025-09-13] MEDS: NSS 1000 IV (14:34)
--- NOTE | 2025-09-13 16:16 | PTCARENOTE ---
Patients bed alarm ringing, RN enters room and finds patient out of wrist restraints in the bathroom, sitting on the toilet. Patient educated about fall risk and safety precautions. Patient was yelling at nursing staff, security called. Lingle text
Dr. Summers to notify . 1:1 in affect due to risk of injury to self. Patient refusing blood draw at this time, notified Dr. Ibarra.
[2025-09-13 17:17] LABS: Albumin 3.7 g/dl (3.5-5.0); Blood Urea Nitrogen 13 mg/dl (9-20); Calcium 9.8 mg/dl (8.4-10.2); Carbon Dioxide 40 mmol/L (22-30); Chloride 96 mmol/L (98-107); Estimated Creatinine Clearance 109 ml/min; Glucose 174 mg/dl (70-99); Potassium 3.7 mmol/L (3.5-5.1); Sodium 142 mmol/L (135-145); eGFR > 60.00
[2025-09-13] MEDS: NOVOLOG FLEXPEN-LOW RESISTANCE SC (17:20)
[2025-09-13 17:30] LABS: Glucose - Point of Care 149 mg/dl (70-99)
--- NOTE | 2025-09-13 20:20 | PTCARENOTE ---
Pt received awake alert and oriented. 1:1 observation continues. Bilat wrist restraints and 4 siderails in use to prevent pt from pulling out IV. Pt calm and cooperative at this time. Pt requested zyprexa at beginning of shift to keep him calm-med
with same. Assessment as charted.
[2025-09-13] MEDS: REMERON TUBE (21:06)
[2025-09-13 23:05] LABS: Glucose - Point of Care 152 mg/dl (70-99)
[2025-09-13] MEDS: LANTUS 0.07 UNITS SC (23:13)
[2025-09-13] MEDS: POLYTRIM OPHTHALMIC SOLUTION 1 DROP BOTH EYES (23:14)
[2025-09-14] VITALS (17 sets, daily range): BP systolic 97–149; BP diastolic 69–125; PULSE 107–122; O2SAT 92–93; BMI 23.9
--- NOTE | 2025-09-14 | PTCARENOTE ---
Pt continues to be alert and oriented x3. Pleasant and cooperative. 1:1 remains at bedside. Wrist restraints removed at this time.
[2025-09-14] MEDS: LOPRESSOR 2.5 MG IV ×3 (00:03→17:51)
[2025-09-14] MEDS: NOVOLOG FLEXPEN-LOW RESISTANCE 1 UNITS SC ×2 (00:04→16:35)
[2025-09-14] MEDS: NOVOLOG FLEXPEN-LOW RESISTANCE SC (05:29)
[2025-09-14] MEDS: ZYPREXA ZYDIS (ORALLY DISINTEGRATING) 5 MG PO ×2 (05:29→09:27)
[2025-09-14] MEDS: NSS 1000 IV (05:33)
[2025-09-14 05:40] LABS: Glucose - Point of Care 116 mg/dl (70-99)
--- NOTE | 2025-09-14 05:48 | PTCARENOTE ---
Pt had not voided this shift. Unable to void in bed. Bladder scan revealed 650ml. Stood at side of bed and pt voided 300 ml. Continues to be compliant with care. Asked for zyprexa again as he started to feel agitated. Med with same.
[2025-09-14 06:07] LABS: Blood Urea Nitrogen 15 mg/dl (9-20); Calcium 8.5 mg/dl (8.4-10.2); Carbon Dioxide 37 mmol/L (22-30); Chloride 102 mmol/L (98-107); Estimated Creatinine Clearance > 125 ml/min; Glucose 115 mg/dl (70-99); Potassium 3.1 mmol/L (3.5-5.1); Sodium 142 mmol/L (135-145); eGFR > 60.00
--- NOTE | 2025-09-14 07:24 | PN.DE.MGMTRT ---
Insulin Management
- -
09/14/2025: Diabetes Management Follow up
60 year old male who was found by his family unresponsive with tongue biting and in fecal matter. Clinical concern so far based on the data points are probable methamphetamine overdose. High suspicion that he might have had a seizure. CT of the
head is negative for any acute findings. PMH DKA, HTN, HLD. Chart review indicates he was taking Farxiga 10mg daily, Lantus 35 units @ HS and NovoLog 10 units AC prior to admission. A1C is 11%, Cr 1, eGFR >60.
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 Stated he took Basaglar 30 units at bedtime and NovoLog 10 units with meals and that he has a DexCom but has to set it up.
Pt is awake alert and oriented, sitting up in chair, pleasant and able to engage in conversation and discuss diabetes care plan. No family at bedside.
09/11 Pt was started on tube feeds and Lantus 15 units BID was resumed with NovoLog 5 units Q6 hrs and low corrective.
09/13 pt pulled feeding tube out, tube feeds stopped, Lantus dose was reduced to 7 units and NovoLog placed on hold.
He is s/p speech eval this morning and has been cleared for puree diet. Nurse reports that pt consumed all his breakfast this morning.
Glucose range yesterday was 149 to 168. FBG 115 V, 116 POC. Current POC pre-breakfast glucose is 148
Will resume Farxiga, Lantus and standing NovoLog orders. Lantus 15 units BID, 1st dose now, NovoLog 6 units AC cont low corrective with meals
Discussed with Nurse. Will cont to follow.
Diabetes History
- -
Type of Diabetes: 2 requiring insulin
Pre-Admission Diabetes Regimen
09/13/25 09/14/25
16:47 05:27
Creatinine 0.7 0.6 L
Lab Results
Hemoglobin A1c 11.0 % (4.0-5.9) H 09/07/25 03:53
Insulin Pump Settings
IP Diabetes Regimen
09/13/25 09/13/25 09/13/25
12:08 16:47 17:20
Glucose 174 H
POC Glucose 168 H 149 H
09/13/25 09/14/25 09/14/25
22:53 05:26 05:27
Glucose 115 H
POC Glucose 152 H 116 H
Patient Education
--- NOTE | 2025-09-14 07:51 | W.PN.CD ---
Addendum entered and electronically signed by Flaquito Garcia MD 09/14/25 10:17:
I saw and evaluated the patient, and I provided the substantive portion of the medical decision making.
I reviewed and agree with the note by Ms Granado and it accurately reflects our care.
I personally performed the medical decision making of the this encounter and my assessment and plan is below:
Adding GDMT as able
Original Note:
Today's Communication / Plan
-
Transition to oral diuretic
Impression / Plan
-
I/P: 60M with HTN, HLD, and T2DM on insulin presented unresponsive from home, with concern for seizure and methamphetamine overdose. Found to have severely reduced LVEF.
Primary cattle inspector: will be Dr. Morrow
HFrEF (EF 27%), acute
- Etiology of cardiomyopathy is unknown, will consider elective outpatient stress test and HIV testing
- GDMT as tolerated:
-KAI/ARB/ARNI: Lisinopril 20 mg daily
-SGLT2 inhibitor: Farxiga 10 mg daily
-Aldosterone agonist: Spironolactone 25 mg daily
-Beta taran: Metoprolol succinate 50 mg daily
- Diuretic: Stop intravenous furosemide and transition to furosemide 20 mg p.o. daily - admit weight in ICU 85.2 kg, 71.3 kg today
-ICD: Re-assess LVEF after 3 months of maximally tolerated GDMT
- Daily weights, I&O and fluid/sodium restrictions
- HF Education
Hypokalemia
- Potassium ordered by primary service
- Follow BMP with change in diuretic and spironolactone (he did not get dose yesterday)
Dysphagia, cleared for diet by WEARING APPAREL FOLDER
Abnormal troponin
- Troponin trend 0.084, 0.096, 0.102, 0.106, 0.103
- This is likely in the setting of rhabdomyolysis
- EKG without acute ischemia
- Outpatient ischemic evaluation as above
Hypertension
- Continue to monitor on current medical therapy
Type 2 diabetes mellitus, insulin dependent, with hyperglycemia, uncontrolled
- Hgba1c 11.0%
Hypercholesterolemia
- Atorvastatin 40 mg on hold in the setting of rhabdomyolysis
- LDL below goal
Change in mental status, with agitation - psych following
Rhabdomyolysis
- CK 716 -> 940, per primary service, holding Lipitor
Subjective:
Awake, alert. Asking for oral intake.
DATA:
Echo 09/07/2025:
SUMMARY
1. Severe global LV hypokinesis. LVEF estimated 27%.
2. Normal right ventricular size and systolic function.
3. Mild left atrial large meant.
4. Aortic valve sclerosis without stenosis.
5. No prior study available for comparison.
Physical Exam
Vital Signs/Labs
Vital Signs
Temp Pulse Resp BP Pulse Ox
98.5 F 85 12 139/91 96
09/14/25 03:00 09/14/25 06:00 09/14/25 06:00 09/14/25 06:00 09/14/25 05:30
09/13/25 09/14/25 09/15/25
05:59 06:59 06:59
Actual Weight 73.8 kg 71.3 kg
09/13/25 03:13
09/14/25 05:27
PT 17.0 Sec (11.4-14.6) H 09/07/25 03:53
INR 1.35 09/07/25 03:53
APTT 32.9 Sec (23.4-35.0) 09/07/25 03:53
Magnesium 1.9 mg/dl (1.6-2.3) 09/08/25 03:25
Triglycerides 81 mg/dl (10-149) 09/07/25 03:53
LDL Cholesterol, Calc 43 mg/dl 09/07/25 03:53
VLDL Cholesterol, Calc 16 mg/dl (0-30) 09/07/25 03:53
HDL Cholesterol 38 mg/dl 09/07/25 03:53
09/06/25
10:42
Psz-E-Jlejluvlzjg Pept 9900
Physical Exam
Constitutional: No acute distress and Comfortable
EENT: Anicteric and Moist mucous membranes
Cardiovascular: Rhythm & rate is regular, Pedal edema is absent and S1S2 is normal
Respiratory: Respiratory effort normal and Lungs clear to auscul.
GI: Soft, Distention absent, Flat, Non tender and Normal bowel sounds
Neuro/Psych: Alert and Oriented
Other: Skin (Warm and dry)
Data Reviewed
-
Date of Service: September 14, 2025
EKG: Report Reviewed by me
Labs: Labs Reviewed by me
Old Records: Reviewed
[2025-09-14] MEDS: KCL 270 MEQ IV (08:52)
[2025-09-14] MEDS: FARXIGA PO (09:22)
[2025-09-14 09:27] LABS: Glucose - Point of Care 148 mg/dl (70-99)
[2025-09-14] MEDS: ALDACTONE 25 MG PO (09:27)
[2025-09-14] MEDS: ZESTRIL 20 MG PO (09:27)
[2025-09-14] MEDS: HEPARIN 5000 UNITS SC ×2 (09:28→16:35)
[2025-09-14] MEDS: NEURONTIN 300 MG TUBE (09:28)
[2025-09-14] MEDS: LASIX 20 MG IV (09:28)
[2025-09-14] MEDS: BACITRACIN OINTMENT 1 APPLIC TOPICAL ×3 (09:29→21:03)
[2025-09-14] MEDS: POLYTRIM OPHTHALMIC SOLUTION 1 DROP BOTH EYES ×4 (09:29→21:03)
--- NOTE | 2025-09-14 09:39 | PTCARENOTE ---
pt aaox3. cooperative with staff. follows commands. states no pain. room air 94%. ivf running as ordered. 1:[address]
--- NOTE | 2025-09-14 10:32 | PTCARENOTE ---
pt 1:1 dc'd
[2025-09-14] MEDS: NOVOLOG FLEXPEN 6 UNITS SC ×3 (10:40→16:36)
[2025-09-14] MEDS: LANTUS 0.15 UNITS SC ×2 (10:40→21:02)
[2025-09-14 12:27] LABS: Glucose - Point of Care 267 mg/dl (70-99)
[2025-09-14] MEDS: LOPRESSOR IV (13:03)
[2025-09-14] MEDS: NOVOLOG FLEXPEN-LOW RESISTANCE 3 UNITS SC (13:03)
--- NOTE | 2025-09-14 14:28 | W.PN.HOSP.TC ---
Today's Communication/Plan
-
Upgrade diet, discontinue one-to-one sitter
Assessment / Plan
Assessment / Plan
Assessment/plan :
Acute metabolic encephalopathy/unresponsive
unresponsive episode-patient was found in fecal matter and he has a tongue bite. Clinical concern so far based on the data points are methamphetamine probably overdose. CT of the head is negative for any acute findings.
High suspicion that he might have had a seizure.
Off of Precedex.
Neurology now has signed off and did not see commendation for further imaging.
Hold Benzos for fear of paradoxical agitation.
Due to new persistent dysphagia , MRI brain was obtained which showed no evidence of acute intracranial abnormalities..
09/14
Mental status improved
Restlessness/agitation-secondary to TME-suspect secondary to drug use-improved and off of Precedex.
Renewed agiation-now on as needed Risperdal-improved agitation. Patient's agitation is more due to n.p.o. status.
09/14
Mental status improved
Drug abuse-patient positive for methamphetamine/amphetamine.-Case management consult for B care referral
History of mood dysfunction-patient claims he ran out of medication. Appt psychiatry input. Currently on mirtazapine and gabapentin
Abnormal troponins-EKG shows no evidence of acute ischemic changes. Suspect nonischemic myocardial injury. Cardiology following
New cardiomyopathy-unclear etiology. Ischemia eval per cardiology
Acute heart failure with reduced EF-patient echo showed EF of 27%.
CW diuretics per cards. Started on GDMT medication-lisinopril, metoprolol, spironolactone, Farxiga.
Hypotension with shock required low-dose vasopressors.
Creatinine is okay. Doubt sepsis-afebrile, white count normal and is on antibiotics for presumed aspiration pneumonitis and pneumonia.
Off of vasopressors.
Right lobe consolidation-with unresponsiveness concern for aspiration pneumonitis/pneumonia- Blood cultures are negative so far.
Low-grade fever, chest x-ray raising possibility of right suprahilar region infiltrate, rising white count, no ongoing cough with productive phlegm I would favor antibiotic coverage for pneumonic process. Continue with IV Unasyn for 1 more day.
Normalized white count.
Dilated small bowel loops on CT-abdomen is nondistended and soft. Limited exam without oral contrast. Denies any abdominal pain, nausea or vomiting.
Urinary bladder thickening on the CT-UA negative for infection probably secondary to underdistention
Hypokalemia-
repleted
Elevated CPK-possibly secondary to rhabdo versus seizures
Acute transaminitis-no gallbladder disease on CT. Liver was homogenous raising concern for fatty infiltration. No cholestasis picture. Suspect may be related to rhabdo. With hypotension and shock liver could be in play.
Improving.
Unconjugated hyperbilirubinemia-direct bilirubin normal.
Diabetes mellitus type 2-continue the sliding scale. Continue Lantus at a lower dose. Uncontrolled hyperglycemia with hemoglobin A1c of 11. Elevated beta hydroxybutyrate acid noted but no acidosis or elevated anion gap. Suspect secondary to
fasting ketoacidosis.. Diabetic nurse COMMUNITY HEALTH CONSULTANT following. Blood sugars have improved. No acidosis evident on BMP
Hyperlipidemia-hold statins due to rhabdo.
CODE STATUS: Full code
DVT prophylaxis: Heparin
Diet: Soft, small bites, diabetic.
Physical therapy recommendations: SNF
Disposition: Upgrade diet, discontinue one-to-one sitter
Total time spent on today's encounter was 55 minutes which included time spent in counseling the patient/family regarding diagnosis and treatment plan as listed above, goals of care, and symptom management. Case was discussed with nursing staff,
specialists, and care coordinators/case management. All labs and imaging personally reviewed by me. Remainder the time spent in detailed review of previous records, lab data, imaging, and other medical provider documentation.
Anticipated Discharge: > 48 hours
Subjective/Interval History
-
Date of Service: September 14, 2025
Patient seen and examined at bedside, denies any chest pain or shortness of breath, passed bedside swallow.
Objective Data
-
Labs:
Laboratory Results
09/14/25
05:27
Sodium 142
Potassium 3.1 L
Chloride 102
Carbon Dioxide 37 H
BUN 15
Creatinine 0.6 L
Glucose 115 H
Calcium 8.5
Vital Signs:
Vital Signs
Temp Pulse Resp BP Pulse Ox
98.9 F 110 20 97/69 93
09/14/25 12:00 09/14/25 10:00 09/14/25 10:00 09/14/25 13:03 09/14/25 10:00
I&O
09/13/25 09/14/25 09/15/25
05:59 06:59 06:59
Intake Total 1880 / 1880 1100 / 1100
Output Total 5050 / 5050 300 / 300
Balance -3170 / -3170 800 / 800
Physical Exam
-
General: Well Developed, Well Nourished, No Apparent Distress and Comfortable
HEENT: Normocephalic, Atraumatic, Moist Mucous Membranes, No Ptosis, PERRLA and Nose Appears Normal
Respiratory: Clear to Auscultation and Non Labored Respirations
Cardiac: Regular Rhythm and S1/S2
Breast: Deferred by me
GI: Soft, Nontender, Nondistended and Normal Bowel Sounds
Genito-urinary: No Costovertebral Tender
Musculoskeletal: No Clubbing, No Cyanosis and No Edema
Skin: Warm
Neuro: Awake, Alert, Oriented, AO x 3 and No Motor Deficits
Psych: Calm
[2025-09-14] MEDS: NEURONTIN 300 MG PO ×2 (16:35→21:03)
[2025-09-14] MEDS: NEURONTIN TUBE (16:41)
[2025-09-14 16:43] LABS: Glucose - Point of Care 176 mg/dl (70-99)
--- NOTE | 2025-09-14 17:42 | CM ---
F/U: PT/OT is still evaluating this patient, but still recommending SNF. SAVAGE Guerin told the patient that is is unlikely that he will be accepted due to substance abuse as well as his insurance so PT/OT should focus on clearing the patient for home
with PT or [facility]. Referrals were made to SNF's just to try. ESTEPHANIA did see the patient last week on 09/09 (Sheela) so talk to Sheela today, she said that she can start looking into [facility]. Now, Case
Management. Hosptial team can get patient cleared with PT so that ESTEPHANIA can work on possible Inpatient Rehab. PLAN: Anticipate Home PT vs. Inpatient Rehab.
[2025-09-14] MEDS: RISPERDAL M-TAB (ORALLY DISINTEGRATING) 1 MG PO (17:54)
--- NOTE | 2025-09-14 20:20 | W.PN.UPDATE ---
Update Note
Progress Note Update
pt seen for assessment; remarkably improved, able to have coherent conversation, very grateful for all of the care he has received. 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 Will continue present
medication/treatment approach, consult [facility]
[2025-09-14] MEDS: REMERON 15 MG PO (21:03)
[2025-09-14 21:13] LABS: Glucose - Point of Care 175 mg/dl (70-99)
[2025-09-15] VITALS (15 sets, daily range): BP systolic 100–141; BP diastolic 73–97; PULSE 105; O2SAT 97; BMI 24.7
[2025-09-15] MEDS: HEPARIN 5000 UNITS SC ×3 (00:02→16:44)
[2025-09-15] MEDS: LOPRESSOR 2.5 MG IV ×2 (00:02→05:43)
[2025-09-15 06:10] LABS: Hematocrit 42.4 % (39.0-52.0); Hemoglobin 14.0 g/dL (13.0-18.0); Mean Corp Hgb Conc. 33.0 g/dL (33.0-37.0); Mean Corpuscular Volume 87.2 fL (80.0-94.0); Platelet Count 232 10^3/uL (130-400); Red Cell Dist. Width 12.7 % (11.5-14.5)
[2025-09-15 06:16] LABS: Blood Urea Nitrogen 19 mg/dl (9-20); Calcium 8.7 mg/dl (8.4-10.2); Carbon Dioxide 33 mmol/L (22-30); Chloride 99 mmol/L (98-107); Estimated Creatinine Clearance 109 ml/min; Glucose 153 mg/dl (70-99); Potassium 3.5 mmol/L (3.5-5.1); Sodium 134 mmol/L (135-145); eGFR > 60.00
--- NOTE | 2025-09-15 06:21 | PTCARENOTE ---
Pt pleasant, cooperative throughout the night. Voided in urinal. Pt desat to 80s on RA while sleeping. 2L O2 placed. Care ongoing.
[2025-09-15 08:05] LABS: Glucose - Point of Care 139 mg/dl (70-99)
[2025-09-15] MEDS: LANTUS 0.15 UNITS SC ×2 (08:23→21:06)
[2025-09-15] MEDS: NEURONTIN 300 MG PO ×3 (08:24→21:05)
[2025-09-15] MEDS: POLYTRIM OPHTHALMIC SOLUTION 1 DROP BOTH EYES ×4 (08:24→21:22)
[2025-09-15] MEDS: ZESTRIL 20 MG PO (08:24)
[2025-09-15] MEDS: FARXIGA 10 MG PO (08:24)
[2025-09-15] MEDS: LASIX 20 MG PO (08:24)
[2025-09-15] MEDS: ALDACTONE 25 MG PO (08:24)
[2025-09-15] MEDS: BACITRACIN OINTMENT 1 APPLIC TOPICAL ×3 (08:25→21:06)
[2025-09-15] MEDS: NOVOLOG FLEXPEN 6 UNITS SC ×3 (08:25→16:45)
[2025-09-15] MEDS: NOVOLOG FLEXPEN-LOW RESISTANCE SC (08:26)
--- NOTE | 2025-09-15 09:00 | PTCARENOTE ---
Patient received from maintenance technician 2nd shift. Patient resting comfortably in bed. AAO, VSS. No events noted overnight. No complaints of pain at this time. Neuro checks. Currently on 2L N/C will wean back to room air. No testing scheduled at this time.
Possible downgrade today. Call pichardo in reach.
--- NOTE | 2025-09-15 09:43 | PN.DE.MGMTRT ---
Insulin Management
- -
09/15/2025: Diabetes Management Follow up
60 year old male who was found by his family unresponsive with tongue biting and in fecal matter. Clinical concern so far based on the data points are probable methamphetamine overdose. High suspicion that he might have had a seizure. CT of the
head is negative for any acute findings. PMH DKA, HTN, HLD. Chart review indicates he was taking Farxiga 10mg daily, Lantus 35 units @ HS and NovoLog 10 units AC prior to admission. A1C is 11%, Cr 1, eGFR >60.
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 but had not seen them in 6 months. Stated he took Basaglar 30 units at bedtime and NovoLog 10 units with meals and that he has a DexCom but has to set it up.
Pt is awake alert and oriented, sitting up in chair, pleasant and able to engage in conversation and discuss diabetes care plan. No family at bedside.
09/13 pt pulled feeding tube out, tube feeds stopped, Lantus dose was reduced to 7 units and NovoLog placed on hold.
09/14 Diet resumed, glucose range 176 to 267. Farxiga 10 mg daily, Lantus 15 units BID and NovoLog 6 units AC with low corrective insulin restarted.
09/15 Fasting glucose 139. Will make no change to current regimen.
Discussed with Nurse. Will cont to follow.
Diabetes History
- -
Type of Diabetes: 2 requiring insulin
Pre-Admission Diabetes Regimen
09/15/25
05:46
Creatinine 0.7
Lab Results
Hemoglobin A1c 11.0 % (4.0-5.9) H 09/07/25 03:53
Insulin Pump Settings
IP Diabetes Regimen
09/14/25 09/14/25 09/14/25
12:16 16:31 21:02
Glucose
POC Glucose 267 H 176 H 175 H
11/04/25 11/04/25
05:46 07:53
Glucose 153 H
POC Glucose 139 H
Meal type: Breakfast
Amount consumed: 100%
Patient Education
--- NOTE | 2025-09-15 09:50 | W.PN.CD ---
Today's Communication / Plan
-
Increase metoprolol succinate to 100 mg daily.
Switch lisinopril to valsartan with eventual plan to transition to Entresto.
Continue p.o. Lasix.
Impression / Plan
-
I/P: 60M with HTN, HLD, and T2DM on insulin presented unresponsive from home, with concern for seizure and methamphetamine overdose. Found to have severely reduced LVEF.
Primary filter changer: will be Dr. Morrow
HFrEF (EF 27%), acute
- Etiology of cardiomyopathy is unknown, will consider elective outpatient stress test and HIV testing
- GDMT as tolerated:
-KAI/ARB/ARNI: Switch lisinopril to valsartan with eventual plan for Entresto
-SGLT2 inhibitor: Farxiga 10 mg daily
-Aldosterone agonist: Spironolactone 25 mg daily
-Beta taran: Increase metoprolol succinate to 100 mg daily
-Diuretic: Continue furosemide 20 mg p.o. daily
-ICD: Re-assess LVEF after 3 months of maximally tolerated GDMT
- Daily weights, I&O and fluid/sodium restrictions
- HF Education
Hypokalemia
- Follow BMP with change in diuretic and spironolactone
Dysphagia, cleared for diet by [employer] SALES REPRESENTATIVE
Abnormal troponin
- Troponin trend 0.084, 0.096, 0.102, 0.106, 0.103
- This is likely in the setting of rhabdomyolysis
- EKG without acute ischemia
- Outpatient ischemic evaluation as above
Hypertension
- Continue to monitor on current medical therapy
Type 2 diabetes mellitus, insulin dependent, with hyperglycemia, uncontrolled
- Hgba1c 11.0%
Hypercholesterolemia
- Atorvastatin 40 mg on hold in the setting of rhabdomyolysis
- LDL below goal
Change in mental status, with agitation - psych following
Rhabdomyolysis
- CK 716 -> 940, per primary service, holding Lipitor
Subjective:
No CV complaints.
DATA:
Echo 09/07/2025:
SUMMARY
1. Severe global LV hypokinesis. LVEF estimated 27%.
2. Normal right ventricular size and systolic function.
3. Mild left atrial large meant.
4. Aortic valve sclerosis without stenosis.
5. No prior study available for comparison.
Physical Exam
Vital Signs/Labs
Vital Signs
Temp Pulse Resp BP Pulse Ox
98.6 F 99 10 131/93 96
09/15/25 07:06 09/15/25 08:24 09/15/25 06:00 09/15/25 08:24 09/15/25 06:00
09/14/25 09/15/25 09/16/25
06:59 06:59 06:59
Actual Weight 157 lb 3.033 oz 162 lb 4.163 oz
09/15/25 05:46
09/15/25 05:46
PT 17.0 Sec (11.4-14.6) H 09/07/25 03:53
INR 1.35 09/07/25 03:53
APTT 32.9 Sec (23.4-35.0) 09/07/25 03:53
Magnesium 1.9 mg/dl (1.6-2.3) 09/08/25 03:25
Triglycerides 81 mg/dl (10-149) 09/07/25 03:53
LDL Cholesterol, Calc 43 mg/dl 09/07/25 03:53
VLDL Cholesterol, Calc 16 mg/dl (0-30) 09/07/25 03:53
HDL Cholesterol 38 mg/dl 09/07/25 03:53
09/06/25
10:42
Zpb-Y-Hzoxczxxkil Pept 9900
Physical Exam
Constitutional: No acute distress and Comfortable
Cardiovascular: Rhythm & rate is regular, Pedal edema is absent, S1S2 is normal and Murmur/rub/gallop absent
Respiratory: Respiratory effort normal
Neuro/Psych: AO x 3
Data Reviewed
-
Date of Service: September 15, 2025
Medical Decision Making: Reviewed Test Results, Test Interpretation and Review of Case with other Provider
EKG: Tracing Personally Visualized and interpreted
Echo: Report Reviewed by me
Labs: Labs Reviewed by me
[2025-09-15 11:50] LABS: Glucose - Point of Care 169 mg/dl (70-99)
[2025-09-15] MEDS: NOVOLOG FLEXPEN-LOW RESISTANCE 1 UNITS SC ×2 (11:56→16:45)
[2025-09-15] MEDS: TOPROL XL 50 MG PO (11:56)
--- NOTE | 2025-09-15 13:03 | CM ---
CM reviewed chart, reviewed with Hospitalist, patient medically stable for d/c.
TT to see if PT able to work with patient today.
CM spoke with [facility] worker, Paulina, regarding inpatient treatment facilities for patient- CM will fax clinicals to [place] [phone].
CM will continue to follow for all d/c needs.
Plan; inpatient treatment, clinicals faxed to [facility] following
--- NOTE | 2025-09-15 13:34 | W.PN.HOSP.TC ---
Today's Communication/Plan
-
Medically cleared for discharge to drug rehab, reevaluation with PT today
Assessment / Plan
Assessment / Plan
Assessment/plan :
Acute metabolic encephalopathy/unresponsive
unresponsive episode-patient was found in fecal matter and he has a tongue bite. Clinical concern so far based on the data points are methamphetamine probably overdose. CT of the head is negative for any acute findings.
High suspicion that he might have had a seizure.
Off of Precedex.
Neurology now has signed off and did not see commendation for further imaging.
Hold Benzos for fear of paradoxical agitation.
Due to new persistent dysphagia , MRI brain was obtained which showed no evidence of acute intracranial abnormalities..
09/14
Mental status improved
09/15
Medically cleared for discharge
Restlessness/agitation-secondary to TME-suspect secondary to drug use-improved and off of Precedex.
Renewed agiation-now on as needed Risperdal-improved agitation. Patient's agitation is more due to n.p.o. status.
09/14
Mental status improved
Drug abuse-patient positive for methamphetamine/amphetamine.-Case management consult for B care referral
History of mood dysfunction-patient claims he ran out of medication. Appt psychiatry input. Currently on mirtazapine and gabapentin
Abnormal troponins-EKG shows no evidence of acute ischemic changes. Suspect nonischemic myocardial injury. Cardiology following
New cardiomyopathy-unclear etiology. Ischemia eval per cardiology
Acute heart failure with reduced EF-patient echo showed EF of 27%.
echo shows:
1. Severe global LV hypokinesis. LVEF estimated 27%.
2. Normal right ventricular size and systolic function.
3. Mild left atrial large meant.
4. Aortic valve sclerosis without stenosis.
5. No prior study available for comparison.
CW diuretics per cards. Started on GDMT medication-lisinopril, metoprolol, spironolactone, Farxiga.
Hypotension with shock required low-dose vasopressors.
Creatinine is okay. Doubt sepsis-afebrile, white count normal and is on antibiotics for presumed aspiration pneumonitis and pneumonia.
Off of vasopressors.
Right lobe consolidation-with unresponsiveness concern for aspiration pneumonitis/pneumonia- Blood cultures are negative so far.
Low-grade fever, chest x-ray raising possibility of right suprahilar region infiltrate, rising white count, no ongoing cough with productive phlegm I would favor antibiotic coverage for pneumonic process. Continue with IV Unasyn for 1 more day.
Normalized white count.
Dilated small bowel loops on CT-abdomen is nondistended and soft. Limited exam without oral contrast. Denies any abdominal pain, nausea or vomiting.
Urinary bladder thickening on the CT-UA negative for infection probably secondary to underdistention
Hypokalemia-
repleted
Elevated CPK-possibly secondary to rhabdo versus seizures
Acute transaminitis-no gallbladder disease on CT. Liver was homogenous raising concern for fatty infiltration. No cholestasis picture. Suspect may be related to rhabdo. With hypotension and shock liver could be in play.
Improving.
Unconjugated hyperbilirubinemia-direct bilirubin normal.
Diabetes mellitus type 2-continue the sliding scale. Continue Lantus at a lower dose. Uncontrolled hyperglycemia with hemoglobin A1c of 11. Elevated beta hydroxybutyrate acid noted but no acidosis or elevated anion gap. Suspect secondary to
fasting ketoacidosis.. Diabetic nurse READING ASSISTANT following. Blood sugars have improved. No acidosis evident on BMP
Hyperlipidemia-hold statins due to rhabdo.
CODE STATUS: Full code
DVT prophylaxis: Heparin
Diet: Soft, small bites, diabetic.
Physical therapy recommendations: SNF
Disposition: Medically cleared for discharge to drug rehab, reevaluation with PT today
Total time spent on today's encounter was 55 minutes which included time spent in counseling the patient/family regarding diagnosis and treatment plan as listed above, goals of care, and symptom management. Case was discussed with nursing staff,
specialists, and care coordinators/case management. All labs and imaging personally reviewed by me. Remainder the time spent in detailed review of previous records, lab data, imaging, and other medical provider documentation.
Anticipated Discharge: Today
Subjective/Interval History
-
Date of Service: September 15, 2025
Patient seen and examined at bedside, denies any chest pain or shortness of breath, no abdominal pain, no nausea, no vomiting, no diarrhea or constipation.
Objective Data
-
Labs:
Laboratory Results
09/15/25
05:46
WBC 6.0
Hgb 14.0
Hct 42.4
Plt Count 232
Sodium 134 L D
Potassium 3.5
Chloride 99
Carbon Dioxide 33 H
BUN 19
Creatinine 0.7
Glucose 153 H
Calcium 8.7
Vital Signs:
Vital Signs
Temp Pulse Resp BP Pulse Ox
98.1 F 110 10 130/91 96
09/15/25 11:43 09/15/25 11:56 09/15/25 06:00 09/15/25 11:56 09/15/25 06:00
I&O
09/14/25 09/15/25 09/16/25
06:59 06:59 06:59
Intake Total 1100 / 1100 1440 / 1440
Output Total 300 / 300 1325 / 1325
Balance 800 / 800 1440 / 1440 -1325 / -1325
Physical Exam
-
General: Well Developed, Well Nourished, No Apparent Distress and Comfortable
HEENT: Normocephalic, Atraumatic, Moist Mucous Membranes, No Ptosis, PERRLA and Nose Appears Normal
Respiratory: Clear to Auscultation and Non Labored Respirations
Cardiac: Regular Rhythm and S1/S2
Breast: Deferred by me
GI: Soft, Nontender, Nondistended and Normal Bowel Sounds
Genito-urinary: No Costovertebral Tender
Musculoskeletal: No Clubbing, No Cyanosis and No Edema
Skin: Warm
Neuro: Awake, Alert, Oriented, AO x 3 and No Motor Deficits
Psych: Calm
[2025-09-15 16:49] LABS: Glucose - Point of Care 190 mg/dl (70-99)
[2025-09-15] MEDS: REMERON 15 MG PO (21:05)
[2025-09-15 21:19] LABS: Glucose - Point of Care 120 mg/dl (70-99)
--- NOTE | 2025-09-15 23:06 | W.PN.UPDATE ---
Update Note
Progress Note Update
pt seen to discuss plans for sobriety. remains willing to go to rehab, [facility]. Case managment confirms their involvement.
[2025-09-16] MEDS: HEPARIN 5000 UNITS SC ×2 (00:37→07:51)
[2025-09-16 05:08] VITALS: BP 142/106
--- NOTE | 2025-09-16 05:37 | PTCARENOTE ---
Pt uncooperative at times. Refused blood pressure cuff at times throughout the night. Disconnected self from CM to ambulate throughout the room despite education from staff. Denies complaints. Call pichardo within reach, however pt does not utilize
despite education. Care ongoing.
[2025-09-16 06:00] VITALS: BP 130/99
[2025-09-16 06:53] LABS: Hematocrit 44.5 % (39.0-52.0); Hemoglobin 14.9 g/dL (13.0-18.0); Mean Corp Hgb Conc. 33.5 g/dL (33.0-37.0); Mean Corpuscular Volume 87.4 fL (80.0-94.0); Platelet Count 231 10^3/uL (130-400); Red Cell Dist. Width 12.6 % (11.5-14.5)
[2025-09-16 07:07] LABS: Blood Urea Nitrogen 17 mg/dl (9-20); Calcium 9.2 mg/dl (8.4-10.2); Carbon Dioxide 36 mmol/L (22-30); Chloride 97 mmol/L (98-107); Estimated Creatinine Clearance 84 ml/min; Glucose 127 mg/dl (70-99); Potassium 3.3 mmol/L (3.5-5.1); Sodium 139 mmol/L (135-145); eGFR > 60.00
--- NOTE | 2025-09-16 07:32 | PN.DE.MGMTRT ---
Insulin Management
- -
09/16/2025: Diabetes Management Follow up
60 year old male who was found by his family unresponsive with tongue biting and in fecal matter. Clinical concern so far based on the data points are probable methamphetamine overdose. High suspicion that he might have had a seizure. CT of the
head is negative for any acute findings. PMH DKA, HTN, HLD. Chart review indicates he was taking Farxiga 10mg daily, Lantus 35 units @ HS and NovoLog 10 units AC prior to admission. A1C is 11%, Cr 1, eGFR >60.
09/11 He stated that he has had diabetes 10 years and has an hydroelectric operator at [facility] but had not seen them in 6 months. Stated he took Basaglar 30 units at bedtime and NovoLog 10 units with meals and that he has a DexCom but has to set it up.
Pt is awake alert and oriented, sitting up in chair, pleasant and able to engage in conversation and discuss diabetes care plan. No family at bedside.
09/13 pt pulled feeding tube out, tube feeds stopped, Lantus dose was reduced to 7 units and NovoLog placed on hold.
09/14 Diet resumed, glucose range 176 to 267. Farxiga 10 mg daily, Lantus 15 units BID and NovoLog 6 units AC with low corrective insulin restarted.
09/15 Fasting glucose 139. Will make no change to current regimen.
09/16 Fasting glucose today 127. Glucose range yesterday 120 to 190. Will continue Lantus 15 units BID with novolog 6 units AC with low corrective and farxiga 10 mg daily.
Discussed with Nurse. Will cont to follow.
Diabetes History
- -
Type of Diabetes: 2 requiring insulin
Pre-Admission Diabetes Regimen
09/16/25
06:33
Creatinine 0.9
Lab Results
Hemoglobin A1c 11.0 % (4.0-5.9) H 09/07/25 03:53
Insulin Pump Settings
IP Diabetes Regimen
09/15/25 09/15/25 09/15/25
07:53 11:39 16:38
Glucose
POC Glucose 139 H 169 H 190 H
09/15/25 09/16/25
21:08 06:33
Glucose 127 H
POC Glucose 120 H
Meal type: Lunch
Patient Education
[2025-09-16] MEDS: NOVOLOG FLEXPEN-LOW RESISTANCE SC (07:50)
[2025-09-16] MEDS: NOVOLOG FLEXPEN 6 UNITS SC ×2 (07:50→12:10)
[2025-09-16] MEDS: TOPROL XL 100 MG PO (07:51)
[2025-09-16] MEDS: ALDACTONE 25 MG PO (07:51)
[2025-09-16] MEDS: LASIX 20 MG PO (07:51)
[2025-09-16] MEDS: FARXIGA 10 MG PO (07:51)
[2025-09-16] MEDS: DIOVAN 160 MG PO (07:51)
[2025-09-16] MEDS: NEURONTIN 300 MG PO (07:51)
[2025-09-16] MEDS: BACITRACIN OINTMENT 1 APPLIC TOPICAL (07:52)
[2025-09-16] MEDS: POLYTRIM OPHTHALMIC SOLUTION 1 DROP BOTH EYES ×2 (07:53→12:10)
[2025-09-16] MEDS: LANTUS 0.15 UNITS SC (07:55)
[2025-09-16 08:07] LABS: Glucose - Point of Care 128 mg/dl (70-99)
[2025-09-16 08:13] LABS: Glucose - Point of Care 125 mg/dl (70-99)
[2025-09-16] MEDS: KLOR-CON 40 MEQ PO (08:20)
--- NOTE | 2025-09-16 09:44 | W.PN.CD ---
Addendum entered and electronically signed by Barrett Morrow MD 09/16/25 09:56:
Cardiology will sign off.
Original Note:
Today's Communication / Plan
-
Extra KCl
Outpatient BMP in 2 and 4 weeks
As outpatient move Valsartan to Entresto
Recheck LVEF once on max meds for 3 months to consider ICD discussion, no LifeVest (no NSVT on tele in last several days)
Pt knows to avoid drugs/abstain
Impression / Plan
-
I/P: 60M with HTN, HLD, and T2DM on insulin presented unresponsive from home, with concern for seizure and methamphetamine overdose. Found to have severely reduced LVEF.
Primary nuclear weapons custodian: will be Dr. Morrow
HFrEF (EF 27%), acute
- Etiology of cardiomyopathy is unknown, will consider elective outpatient stress test and HIV testing
- GDMT as tolerated:
-KAI/ARB/ARNI: Switch lisinopril to valsartan 160 mg daily with eventual plan for Entresto
-SGLT2 inhibitor: Farxiga 10 mg daily
-Aldosterone agonist: Spironolactone 25 mg daily
-Beta taran: metoprolol succinate to 100 mg daily
-Diuretic: Continue furosemide 20 mg p.o. daily
-ICD: Re-assess LVEF after 3 months of maximally tolerated GDMT. Would need to be free of active drug use for a period of time, Fidel Sci subcu ICD would likely be picked
- Daily weights, I&O and fluid/sodium restrictions
- HF Education
Hypokalemia
- Follow BMP with change in diuretic and spironolactone
Dysphagia, cleared for diet by BUTT PRESSER
Nonischemic myocardialinjury, peak trop 0.106
- Outpatient ischemic evaluation will be considered
Hypertension
- Continue to monitor on current medical therapy
Type 2 diabetes mellitus, insulin dependent, with hyperglycemia, uncontrolled
- Hgba1c 11.0%
Hypercholesterolemia
- Atorvastatin 40 mg on hold in the setting of rhabdomyolysis
- LDL below goal
Change in mental status => resolved
Rhabdomyolysis
- CK 716 -> 940, per primary service, holding Lipitor
Subjective:
No CV complaints.
DATA:
Echo 09/07/2025:
SUMMARY
1. Severe global LV hypokinesis. LVEF estimated 27%.
2. Normal right ventricular size and systolic function.
3. Mild left atrial large meant.
4. Aortic valve sclerosis without stenosis.
5. No prior study available for comparison.
Physical Exam
Vital Signs/Labs
Vital Signs
Temp Pulse Resp BP Pulse Ox
98.7 F 105 21 130/99 94
09/16/25 08:39 09/16/25 06:00 09/16/25 06:00 09/16/25 07:51 09/16/25 05:08
09/15/25 09/16/25 09/17/25
06:59 06:59 06:59
Actual Weight 73.6 kg
09/16/25 06:33
09/16/25 06:33
PT 17.0 Sec (11.4-14.6) H 09/07/25 03:53
INR 1.35 09/07/25 03:53
APTT 32.9 Sec (23.4-35.0) 09/07/25 03:53
Magnesium 1.9 mg/dl (1.6-2.3) 09/08/25 03:25
Triglycerides 81 mg/dl (10-149) 09/07/25 03:53
LDL Cholesterol, Calc 43 mg/dl 09/07/25 03:53
VLDL Cholesterol, Calc 16 mg/dl (0-30) 09/07/25 03:53
HDL Cholesterol 38 mg/dl 09/07/25 03:53
09/06/25
10:42
Mvs-M-Fmideebljah Pept 9900
Physical Exam
Constitutional: No acute distress
EENT: Anicteric
Cardiovascular: Rhythm & rate is regular
Respiratory: Respiratory effort normal and Lungs clear to auscul.
GI: Soft and Distention absent
Neuro/Psych: AO x 3
Data Reviewed
-
Date of Service: September 16, 2025
[2025-09-16] MEDS: KCL 20 MEQ PO (10:09)
[2025-09-16] MEDS: NOVOLOG FLEXPEN-LOW RESISTANCE 1 UNITS SC (12:10)
[2025-09-16 12:23] LABS: Glucose - Point of Care 161 mg/dl (70-99)
--- NOTE | 2025-09-16 14:15 | W.PN.HOSP.TC ---
Today's Communication/Plan
-
Medically cleared for discharge to drug rehab.
Assessment / Plan
Assessment / Plan
Assessment/plan :
Acute metabolic encephalopathy/unresponsive
unresponsive episode-patient was found in fecal matter and he has a tongue bite. Clinical concern so far based on the data points are methamphetamine probably overdose. CT of the head is negative for any acute findings.
High suspicion that he might have had a seizure.
Off of Precedex.
Neurology now has signed off and did not see commendation for further imaging.
Hold Benzos for fear of paradoxical agitation.
Due to new persistent dysphagia , MRI brain was obtained which showed no evidence of acute intracranial abnormalities..
09/14
Mental status improved
09/15
Medically cleared for discharge
Restlessness/agitation-secondary to TME-suspect secondary to drug use-improved and off of Precedex.
Renewed agiation-now on as needed Risperdal-improved agitation. Patient's agitation is more due to n.p.o. status.
09/14
Mental status improved
Drug abuse-patient positive for methamphetamine/amphetamine.-Case management consult for B care referral
History of mood dysfunction-patient claims he ran out of medication. Appt psychiatry input. Currently on mirtazapine and gabapentin
Abnormal troponins-EKG shows no evidence of acute ischemic changes. Suspect nonischemic myocardial injury. Cardiology following
New cardiomyopathy-unclear etiology. Ischemia eval per cardiology
Acute heart failure with reduced EF-patient echo showed EF of 27%.
echo shows:
1. Severe global LV hypokinesis. LVEF estimated 27%.
2. Normal right ventricular size and systolic function.
3. Mild left atrial large meant.
4. Aortic valve sclerosis without stenosis.
5. No prior study available for comparison.
CW diuretics per cards. Started on GDMT medication-lisinopril, metoprolol, spironolactone, Farxiga.
Hypotension with shock required low-dose vasopressors.
Creatinine is okay. Doubt sepsis-afebrile, white count normal and is on antibiotics for presumed aspiration pneumonitis and pneumonia.
Off of vasopressors.
Right lobe consolidation-with unresponsiveness concern for aspiration pneumonitis/pneumonia- Blood cultures are negative so far.
Low-grade fever, chest x-ray raising possibility of right suprahilar region infiltrate, rising white count, no ongoing cough with productive phlegm I would favor antibiotic coverage for pneumonic process. Continue with IV Unasyn for 1 more day.
Normalized white count.
Dilated small bowel loops on CT-abdomen is nondistended and soft. Limited exam without oral contrast. Denies any abdominal pain, nausea or vomiting.
Urinary bladder thickening on the CT-UA negative for infection probably secondary to underdistention
Hypokalemia-
repleted
Elevated CPK-possibly secondary to rhabdo versus seizures
Acute transaminitis-no gallbladder disease on CT. Liver was homogenous raising concern for fatty infiltration. No cholestasis picture. Suspect may be related to rhabdo. With hypotension and shock liver could be in play.
Improving.
Unconjugated hyperbilirubinemia-direct bilirubin normal.
Diabetes mellitus type 2-continue the sliding scale. Continue Lantus at a lower dose. Uncontrolled hyperglycemia with hemoglobin A1c of 11. Elevated beta hydroxybutyrate acid noted but no acidosis or elevated anion gap. Suspect secondary to
fasting ketoacidosis.. Diabetic nurse MRI ASSISTANT following. Blood sugars have improved. No acidosis evident on BMP
Hyperlipidemia-hold statins due to rhabdo.
CODE STATUS: Full code
DVT prophylaxis: Heparin
Diet: Soft, small bites, diabetic.
Physical therapy recommendations: SNF
Disposition: Medically cleared for discharge to drug rehab.
Total time spent on today's encounter was 55 minutes which included time spent in counseling the patient/family regarding diagnosis and treatment plan as listed above, goals of care, and symptom management. Case was discussed with nursing staff,
specialists, and care coordinators/case management. All labs and imaging personally reviewed by me. Remainder the time spent in detailed review of previous records, lab data, imaging, and other medical provider documentation.
Anticipated Discharge: Today
Subjective/Interval History
-
Date of Service: September 16, 2025
Patient seen and examined at bedside, denies any chest pain or shortness of breath, no abdominal pain, no nausea, no vomiting, no diarrhea or constipation.
Objective Data
-
Labs:
Laboratory Results
09/16/25
06:33
WBC 6.4
Hgb 14.9
Hct 44.5
Plt Count 231
Sodium 139
Potassium 3.3 L
Chloride 97 L
Carbon Dioxide 36 H
BUN 17
Creatinine 0.9
Glucose 127 H
Calcium 9.2
Vital Signs:
Vital Signs
Temp Pulse Resp BP Pulse Ox
98.9 F 105 21 130/99 94
09/16/25 12:00 09/16/25 06:00 09/16/25 06:00 09/16/25 07:51 09/16/25 05:08
I&O
09/15/25 09/16/25 09/17/25
06:59 06:59 06:59
Intake Total 1440 / 1440 500 / 500
Output Total 1725 / 1725 500 / 500
Balance 1440 / 1440 -1725 / -1725 0 / 0
Physical Exam
-
General: Well Developed, Well Nourished, No Apparent Distress and Comfortable
HEENT: Normocephalic, Atraumatic, Moist Mucous Membranes, No Ptosis, PERRLA and Nose Appears Normal
Respiratory: Clear to Auscultation and Non Labored Respirations
Cardiac: Regular Rhythm and S1/S2
Breast: Deferred by me
GI: Soft, Nontender, Nondistended and Normal Bowel Sounds
Genito-urinary: No Costovertebral Tender
Musculoskeletal: No Clubbing, No Cyanosis and No Edema
Skin: Warm
Neuro: Awake, Alert, Oriented, AO x 3 and No Motor Deficits
Psych: Calm
--- NOTE | 2025-09-16 14:59 | CM ---
Addendum entered by Sola Brown 09/16/25 15:01:
FAX # [phone].
Original Note:
Patient has been medically cleared for discharge to [facility] for Substance Abuse inpatient Rehab. [facility] has set up [facility] for 3:45PM. Patient and Team notified.
--- NOTE | 2025-09-16 14:59 | W.DCSUMMARY ---
Discharge Summary
Discharge Data
Date of Admission: 09/06/25
Date of Discharge: 09/16/25
Total time spent discharging patient (in min): 40
-
Pending Results: No
Hospital Course
Hospital course
Patient is 60-year-old male with a past medical history of hypertension, diabetes, methamphetamine abuse, and hyperlipidemia who presents with being found unresponsive on the floor. 911 called and patient was arousable to pain by to EMS, with blood
sugar 88. 500 cc bolus of fluids were given as his SBP was in the 90s. There appeared to be bags of drugs all over the room. When he arrived here to the ER he was moaning and groaning and covered in fecal matter. Patient remains unresponsive,
In the ER he was tachycardic to 110, tachypneic to 22, BP 142/100 and he was saturating 97% on room air. Initial labs pertinent for mild leukocytosis to 11, Hb 13.9, magnesium 0.8, CK 7016, troponin 0.084, proBNP 9 900, urinalysis with +3 ketones
and urine toxicology showing amphetamines + methamphetamines. Beta-hydroxybutyrate elevated at 3.22 and COVID-19 antigen was negative. His POCT glucose was low at 67. Blood and urine cultures collected. CT facial bones showed no soft tissue
abscess, CT head showed no acute intracranial abnormality, CXR showed low lung volumes without any focal airspace disease or pulmonary edema, and CT chest/abdomen/pelvis showed cardiomegaly with possible pulmonary vascular congestion with small
bilateral pleural effusions, small right lower lobe consolidation due to pneumonia versus atelectasis with fluid in the nondilated loops of small bowel, unable to exclude ileus/enteritis, with mild hepatomegaly with suspected diffuse fatty liver and
relative diffuse thickening of the wall of the urinary bladder due to either underdistention versus cystitis. Magnesium was given and due to his poor mental status with need for close monitoring and possible need for intubation for airway
protection, he was admitted to the ICU, seen by neurology, started on Precedex, and eventually weaned off, also seen by cardiology, echocardiogram shows EF 27 percent, and started on guideline directed medical therapy, cardiology recommending
outpatient follow-up for ischemic workup.
Patient was one-to-one and failed swallow eval but eventually was taken off one-to-one and scheduled regular diet.
Patient was seen by diabetic management nurse practitioner and adjusted his insulin regimen.
Patient was seen by BANNERZELDA patient will be discharged to drug rehab.
During hospitalization patient was treated from the following
Acute metabolic encephalopathy/unresponsive
unresponsive episode-patient was found in fecal matter and he has a tongue bite. Clinical concern so far based on the data points are methamphetamine probably overdose. CT of the head is negative for any acute findings.
High suspicion that he might have had a seizure.
Off of Precedex.
Neurology now has signed off and did not see commendation for further imaging.
Hold Benzos for fear of paradoxical agitation.
Due to new persistent dysphagia , MRI brain was obtained which showed no evidence of acute intracranial abnormalities..
09/14
Mental status improved
09/15
Medically cleared for discharge
Restlessness/agitation-secondary to TME-suspect secondary to drug use-improved and off of Precedex.
Renewed agiation-now on as needed Risperdal-improved agitation. Patient's agitation is more due to n.p.o. status.
09/14
Mental status improved
Drug abuse-patient positive for methamphetamine/amphetamine.-Case management consult for B care referral
History of mood dysfunction-patient claims he ran out of medication. Appt psychiatry input. Currently on mirtazapine and gabapentin
Abnormal troponins-EKG shows no evidence of acute ischemic changes. Suspect nonischemic myocardial injury. Cardiology following
New cardiomyopathy-unclear etiology. Ischemia eval per cardiology
Acute heart failure with reduced EF-patient echo showed EF of 27%.
echo shows:
1. Severe global LV hypokinesis. LVEF estimated 27%.
2. Normal right ventricular size and systolic function.
3. Mild left atrial large meant.
4. Aortic valve sclerosis without stenosis.
5. No prior study available for comparison.
CW diuretics per cards. Started on GDMT medication-lisinopril, metoprolol, spironolactone, Farxiga.
Hypotension with shock required low-dose vasopressors.
Creatinine is okay. Doubt sepsis-afebrile, white count normal and is on antibiotics for presumed aspiration pneumonitis and pneumonia.
Off of vasopressors.
Right lobe consolidation-with unresponsiveness concern for aspiration pneumonitis/pneumonia- Blood cultures are negative so far.
Low-grade fever, chest x-ray raising possibility of right suprahilar region infiltrate, rising white count, no ongoing cough with productive phlegm I would favor antibiotic coverage for pneumonic process. Continue with IV Unasyn for 1 more day.
Normalized white count.
Dilated small bowel loops on CT-abdomen is nondistended and soft. Limited exam without oral contrast. Denies any abdominal pain, nausea or vomiting.
Urinary bladder thickening on the CT-UA negative for infection probably secondary to underdistention
Hypokalemia-
repleted
Elevated CPK-possibly secondary to rhabdo versus seizures
Acute transaminitis-no gallbladder disease on CT. Liver was homogenous raising concern for fatty infiltration. No cholestasis picture. Suspect may be related to rhabdo. With hypotension and shock liver could be in play.
Improving.
Unconjugated hyperbilirubinemia-direct bilirubin normal.
Diabetes mellitus type 2-continue the sliding scale. Continue Lantus at a lower dose. Uncontrolled hyperglycemia with hemoglobin A1c of 11. Elevated beta hydroxybutyrate acid noted but no acidosis or elevated anion gap. Suspect secondary to
fasting ketoacidosis.. Diabetic nurse [employer] following. Blood sugars have improved. No acidosis evident on BMP
Hyperlipidemia-hold statins due to rhabdo.
CODE STATUS: Full code
DVT prophylaxis: Heparin
Diet: Soft, small bites, diabetic.
Physical therapy recommendations: SNF
Disposition: Medically cleared for discharge to drug rehab.
Total time spent on today's encounter was 40 minutes which included time spent in counseling the patient/family regarding diagnosis and treatment plan as listed above, goals of care, and symptom management. Case was discussed with nursing staff,
specialists, and care coordinators/case management. All labs and imaging personally reviewed by me. Remainder the time spent in detailed review of previous records, lab data, imaging, and other medical provider documentation.
Anticipated Discharge: Today
Discharge Plan
-
Patient Disposition: Acute Rehab Facility
Discharge Diagnosis/Procedures: Acute metabolic encephalopathy/unresponsive.
Acute heart failure with reduced EF-patient echo showed EF of 27%.
Hypotension with shock required low-dose vasopressors.
Diet: Diabetic, Carb Controlled
Blood Work: BMP in 2 and 4 weeks, fax results to Dr. Barrett Morrow.
Specialty Instructions: Weigh Daily- Call MD for wt gain/loss 3 lbs overnight/5 lbs in 1 week
Referrals:
Fela Hooper MD [Family Provider, Internal Medicine]
Barrett Morrow MD [Active, Cardiology] - in two to three weeks
Prescriptions:
New
dapagliflozin propanediol [Farxiga] 10 mg tablet
10 mg PO DAILY Qty: 30 0RF
metoprolol succinate 50 mg Tablet Extended Release 24 Hr
100 mg PO DAILY Qty: 0 0RF
bacitracin zinc [Antibiotic (bacitracin zinc)] 500 unit/gram Ointment
1 applic topical TID Qty: 0 0RF
spironolactone 25 mg Tablet
25 mg PO DAILY 30 Days Qty: 30 0RF
gabapentin 300 mg Capsule
300 mg PO TID Qty: 0 0RF
furosemide 20 mg Tablet
20 mg PO DAILY Qty: 0 0RF
mirtazapine 15 mg Tablet
15 mg PO HS Qty: 0 0RF
valsartan 160 mg Tablet
160 mg PO DAILY 30 Days Qty: 30 0RF
Continued
atorvastatin [Lipitor] 40 mg Tablet
40 mg PO DAILY
Changed
insulin glargine [Lantus U-100 Insulin] 100 unit/mL solution
15 unit SC BID Qty: 0 0RF
insulin aspart U-100 [Novolog FlexPen U-100 Insulin] 100 unit/mL (3 mL) insulin pen
6 unit SC AC Qty: 15 0RF
Rx Instructions:
Before meals
Discontinued
lisinopril 20 mg Tablet
20 mg PO DAILY
Discharge Orders:
Discharge Patient (As Directed); Ordered 09/16/25
Ordered By: Zan Barnes
Discharge Date and Time
Print Language: GUAMANIAN
== END 2025-09-16 15:36 | DRG 917 ==
LOC: IMU 14:45
PROVIDERS: Clinical Nurse Specialist Family Health; Internal Medicine; Internal Medicine Cardiovascular Disease; Nurse Practitioner Family; Nurse Practitioner Primary Care; ADMITTING PHYSICIAN Internal Medicine; ATTENDING PHYSICIAN General Practice; CONSULT PHYSICIAN Internal Medicine Critical Care Medicine; CONSULT PHYSICIAN Psychiatry & Neurology Neurology; CONSULT PHYSICIAN Psychiatry & Neurology Psychiatry; EMERGENCY PHYSICIAN Emergency Medicine; FAMILY PHYSICIAN Student in an Organized Health Care Education/Training Program; OTHER PHYSICIAN Internal Medicine Cardiovascular Disease
DX: T43.621A Poisoning by amphetamines, accidental (unintentional), initial encounter (principal); G93.41 Metabolic encephalopathy; I50.41 Acute combined systolic (congestive) and diastolic (congestive) heart failure; J69.0 Pneumonitis due to inhalation of food and vomit; K72.00 Acute and subacute hepatic failure without coma; J96.01 Acute respiratory failure with hypoxia; M62.82 Rhabdomyolysis; N17.9 Acute kidney failure, unspecified; R57.9 Shock, unspecified; T43.651A Poisoning by methamphetamines accidental (unintentional), initial encounter; E83.42 Hypomagnesemia; E11.40 Type 2 diabetes mellitus with diabetic neuropathy, unspecified; E11.649 Type 2 diabetes mellitus with hypoglycemia without coma; F17.200 Nicotine dependence, unspecified, uncomplicated; I11.0 Hypertensive heart disease with heart failure; E87.6 Hypokalemia; F15.10 Other stimulant abuse, uncomplicated; Z79.4 Long term (current) use of insulin; Z79.899 Other long term (current) drug therapy; Z11.52 Encounter for screening for COVID-19
CPT/HCPCS: 36600; 70450; 70487; 70551; 71045; 71260; 74018; 74177; 80048; 80053; 80061; 80069; 80306; 80307; 81003; 81015; 82010; 82248; 82550; 82805; 82962; 83036; 83605; 83735; 83880; 84100; 84484; 85025; 85027; 85610; 85730; 87040; 87070; 87086; 87147; 87502; 87811; 92526; 92610; 92612; 93005; 93306; 95816; 96365; 96366; 97116; 97163; 97167; 97530; 97535; 99291; J2358; P9047; Q9967